=== PATIENT | female | born 1935 | race Hispanic/Latino ===

== ENCOUNTER 2018-12-08 16:11 | Inpatient (IN) | payer OTHER, BC ==
--- OUTSIDE RECORDS SUMMARY | 2018-12-08 16:13 | XMS REPORT ---
:1935 Author Organization eClinicalWorks Care Team Providers Name Role Phone Ana Frank Provider Role Unavailable Allergies, Adverse Reactions, Alerts Substance Reaction Event Type N.K.D.A. Info Not Available Non Drug Allergy Problems Problem Type Condition Code Onset Dates Condition Status Assessment Encounter for diagnostic R19.4 Active colonoscopy due to change in bowel habits Problem Back pain M54.9 Active Assessment Weight loss R63.4 Active Problem Pericardial effusion I31.9 Active Assessment Positive colorectal cancer R19.5 Active screening using Cologuard test Problem HTN (hypertension) I10 Active Problem Allergic rhinitis J30.9 Active Problem Hypothyroidism E03.9 Active Problem Positive colorectal cancer R19.5 Active screening using Cologuard test Problem Chronic obstructive pulmonary J44.9 Active disease, unspecified COPD type Assessment Personal history of other malignant Z85.118 Active neoplasm of bronchus and lung Assessment Lower extremity edema R60.0 Active Problem Lower extremity edema R60.0 Active Assessment Chronic obstructive pulmonary J44.9 Active disease, unspecified COPD type Problem Osteoporosis, unspecified M81.0 Active osteoporosis type, unspecified pathological fracture presence Problem Hyperlipidemia E78.5 Active Problem Microscopic hematuria R31.2 Active Problem Personal history of other malignant Z85.118 Active neoplasm of bronchus and lung Assessment Hypothyroidism E03.9 Active Assessment Hyperlipidemia E78.5 Active Assessment Osteoporosis, unspecified M81.0 Active osteoporosis type, unspecified pathological fracture presence Assessment Allergic rhinitis J30.9 Active Problem Cataract H26.9 Active Problem Encounter for screening colonoscopy Z12.11 Active Assessment HTN (hypertension) I10 Active Medications Medication Code Code Instructions Start End Status Dosage System Date Date Claritin [facility] 74599794546 10 MG Orally Active 1 tablet Once a day ProAir HFA [facility] 48654857211 108 (90 Base) Active 2 puffs as MCG/ACT needed Inhalation every 6 hrs Allopurinol ND 20001236324 100 MG Orally Active 1 tablet Once a day Albuterol Sulfate [facility] 64790377285 (2.5 MG/3ML) Active 3 ml as 0.083% needed Inhalation Three times a day Rosuvastatin [facility] 49015058474 5 Active TAKE 1 Calcium TABLET BY MOUTH DAILY Amlodipine [facility] 23617742793 10 MG Active TAKE 1 Besylate TABLET BY MOUTH EVERY DAY Travatan Z [facility] 29815886581 0.004 % Active 1 drop Ophthalmic Once into a day affected eye in the evening Fosamax [facility] 13240736019 70 MG Orally Active 1 tablet Synthroid [facility] 57609945717 50 MCG Orally Active 1 tablet Once a day on an empty stomach in the morning Spiriva [facility] 73408679377 18 MCG Active 1 capsule HandiHaler Inhalation Once a day Metoprolol [facility] 91527988914 25 MG Orally Active 1/2 tablet Tartrate Twice a day with food Spironolactone [facility] 66946272792 25 MG Orally Active 1 tablet Once a day with food Lasix [facility] 91087391353 20 MG Orally Active 1 tablet Once a day Results No Known Results Summary Purpose eClinicalWorks Submission
--- OUTSIDE RECORDS SUMMARY | 2018-12-08 16:13 | XMS REPORT ---
:1935 Author Organization [employer]ClinicalWorks Care Team Providers Name Role Phone Frank, Na Provider Role Unavailable Allergies No Known Allergies Problems Problem Type Condition Code Onset Dates Condition Status Problem HTN (hypertension) I10 Active Problem Allergic rhinitis J30.9 Active Problem Hypothyroidism E03.9 Active Problem Cataract H26.9 Active Problem Encounter for screening colonoscopy Z12.11 Active Problem Back pain M54.9 Active Problem Pericardial effusion I31.9 Active Problem Positive colorectal cancer R19.5 Active screening using Cologuard test Problem Chronic obstructive pulmonary J44.9 Active disease, unspecified COPD type Problem Lower extremity edema R60.0 Active Problem Osteoporosis, unspecified M81.0 Active osteoporosis type, unspecified pathological fracture presence Problem Hyperlipidemia E78.5 Active Problem Microscopic hematuria R31.2 Active Problem Personal history of other malignant Z85.118 Active neoplasm of bronchus and lung Medications Medication Code System Code Instructions Start End Date Status Dosage Date Benzonatate [facility] 33789617512 200 MG Orally Nov 05, Active 1 capsule Three times a 2017 day Results No Known Results Summary Purpose eClinicalWorks Submission
--- OUTSIDE RECORDS SUMMARY | 2018-12-08 16:13 | XMS REPORT ---
:1935 Author Organization [employer]ClinicalWorks Care Team Providers Name Role Phone Frank, Na Provider Role Unavailable Allergies, Adverse Reactions, Alerts Substance Reaction Event Type N.K.D.A. Info Not Available Non Drug Allergy Problems Problem Type Condition Code Onset Dates Condition Status Problem Microscopic hematuria R31.2 Active Problem Cataract H26.9 Active Problem Chronic obstructive pulmonary J44.9 Active disease, unspecified COPD type Problem Allergic rhinitis J30.9 Active Assessment Chronic obstructive pulmonary J44.9 Active disease, unspecified COPD type Problem Hypothyroidism E03.9 Active Problem Hyperlipidemia E78.5 Active Problem Back pain M54.9 Active Problem Encounter for screening colonoscopy Z12.11 Active Problem HTN (hypertension) I10 Active Problem Pericardial effusion I31.9 Active Assessment Personal history of other malignant Z85.118 Active neoplasm of bronchus and lung Assessment Osteoporosis, unspecified M81.0 Active osteoporosis type, unspecified pathological fracture presence Assessment Lower extremity edema R60.0 Active Assessment Encounter for screening colonoscopy Z12.11 Active Assessment Hyperlipidemia E78.5 Active Assessment HTN (hypertension) I10 Active Assessment Allergic rhinitis J30.9 Active Problem Osteoporosis, unspecified M81.0 Active osteoporosis type, unspecified pathological fracture presence Assessment Hypothyroidism E03.9 Active Problem Personal history of other malignant Z85.118 Active neoplasm of bronchus and lung Medications Medication Code Code Instructions Start End Status Dosage System Date Date Spironolactone ND 94122633480 25 MG Orally Active 1 tablet Once a day with food ProAir HFA ND 93294098828 108 (90 Base) Active 2 puffs as MCG/ACT needed Inhalation every 6 hrs Metoprolol ND 00668889774 25 MG Orally Active 1/2 tablet Tartrate Twice a day with food Albuterol Sulfate ND 42637065996 (2.5 MG/3ML) Active 3 ml as 0.083% needed Inhalation Three times a day Spiriva ND 11704436981 18 MCG April Active 1 capsule HandiHaler Inhalation Once 07, a day 2018 Travatan Z [facility]NOTE 3] 20889617066 0.004 % Active 1 drop Ophthalmic Once into a day affected eye in the evening Synthroid [facility][NOTE 3] 37207652785 50 MCG Orally Active 1 tablet Once a day on an empty stomach in the morning Rosuvastatin [facility][NOTE 3] 84615854592 5 Active TAKE 1 Calcium TABLET BY MOUTH DAILY Claritin [facility][NOTE 3] 09747814216 10 MG Orally Active 1 tablet Once a day Amlodipine [facility][NOTE 3] 40669291565 10 MG Active TAKE 1 Besylate TABLET BY MOUTH EVERY DAY Lasix [facility][NOTE 3] 68118543505 20 MG Orally Active 1 tablet Once a day Allopurinol [facility][NOTE 3] 03603006105 100 MG Orally Active 1 tablet Once a day Fosamax [facility][NOTE 3] 75536684661 70 MG Orally Oct 31, Active 1 tablet 2017 Results No Known Results Summary Purpose eClinicalWorks Submission
--- OUTSIDE RECORDS SUMMARY | 2018-12-08 16:14 | XMS REPORT ---
[...] Active neoplasm of bronchus and lung Medications No Known Medications Results No Known Results Summary Purpose eClinicalWorks Submission
--- OUTSIDE RECORDS SUMMARY | 2018-12-08 16:14 | XMS REPORT ---
:1935 [facility] Address [address] [place] [address] [address] [place] [address] Care Team Providers Name Role Phone Unavailable Unavailable Unavailable Problems This patient has no known problems. Allergies, Adverse Reactions, Alerts This patient has no known allergies or adverse reactions. Medications This patient has no known medications.
--- OUTSIDE RECORDS SUMMARY | 2018-12-08 16:14 | XMS REPORT ---
[...] cancer R19.5 Active screening using Cologuard test Assessment Personal history of other malignant Z85.118 Active neoplasm of bronchus and lung Problem Chronic obstructive pulmonary J44.9 Active disease, unspecified COPD type Assessment Lower extremity edema R60.0 Active Assessment Chronic [...] Encounter for screening colonoscopy Z12.11 Active Assessment Weight loss R63.4 Active Assessment HTN (hypertension) I10 Active Problem Back pain M54.9 Active Assessment Positive colorectal cancer R19.5 Active screening using Cologuard test Problem Pericardial effusion I31.9 Active Medications Medication Code Code Instructions Start End Status Dosage System Date Date Synthroid [facility] 88885383122 50 MCG Orally Active 1 tablet Once a day on an empty stomach in the morning Metoprolol ND 98348122650 25 MG Orally Active 1/2 tablet Tartrate Twice a day with food Allopurinol ND 96519659969 100 MG Orally Active 1 tablet Once a day Spironolactone [facility] 90688039585 25 MG Orally Active 1 tablet Once a day with food Lasix [facility] 61187592735 20 MG Orally Active 1 tablet Once a day Rosuvastatin [facility] 77005697152 5 Active TAKE 1 Calcium TABLET BY MOUTH DAILY Claritin [facility] 84129966238 10 MG Orally Active 1 tablet Once a day ProAir HFA [facility] 94237316698 108 (90 Base) Active 2 puffs as MCG/ACT needed Inhalation every 6 hrs Albuterol Sulfate [facility] 59315914113 (2.5 MG/3ML) Active 3 ml as 0.083% needed Inhalation Three times a day Travatan Z [facility] 55482759249 0.004 % Active 1 drop Ophthalmic Once into a day affected eye in the evening Spiriva [facility] 27782241485 18 MCG Oct 08, Active 1 capsule HandiHaler Inhalation Once 2019 a day Amlodipine [facility] 08619086595 10 MG Active TAKE 1 Besylate TABLET BY MOUTH EVERY DAY Spiriva [facility] 71452948661 18 MCG Active 1 capsule HandiHaler Inhalation Once a day Fosamax [facility] 93555595940 70 MG Orally April 11, Active 1 tablet once a week 2018 Results No Known Results Summary Purpose eClinicalWorks Submission
[2018-12-08 16:41] LABS: Absolute Lymphocytes (CBC) 0.7 K/uL (0.7-4.9); Absolute Monocytes 0.2 K/uL (0.1-1.3); Absolute Neutrophil 19.3 K/uL (1.8-8.0); Basophils % 0.1 % (0-1.3); Hematocrit 45.3 % (36.0-45.0); Lymphocytes % 3.6 % (15.3-44.8); MPV 8.8 fL (7.6-11.3); Monocytes % 0.8 % (3.3-12.3); RBC Red Blood Cell Count 4.91 M/uL (3.86-4.86)
[2018-12-08] MEDS ORDERED: LEVALBUTEROL 1.25 MG/3 ML NEB ONE (16:44)
[2018-12-08] MEDS ORDERED: METHYLPREDNISOLONE 125 MG INJ ONE (16:44)
[2018-12-08] MEDS ORDERED: MAGNESIUM SULFATE 1 gm IVPB 1 GM/100 ML BAG IV ONE (16:44)
[2018-12-08] MEDS ORDERED: NA CHLORIDE 0.9% 250 ML ONE (16:53)
--- NOTE | 2018-12-08 17:09 | RAD REPORT ---
EXAM DESCRIPTION: Saul Single View12/08/2018 4:43 pm CLINICAL HISTORY: Shortness of breath COMPARISON: none FINDINGS: Complete opacification of the right hemithorax is seen. The trachea is deviated towards th e right. Appears to be a mildly prominent reticulonodular pattern within the left lung. Left lower lobe bronch iectasis may be present. IMPRESSION: Complete opacification of the right hemithorax. If the patient has had a right pneumonec dillon then this would be the expected appearance. If the patient has not had a pneumonectomy then this represents complete right lung atelectasis. Mildly prominent reticulonodular pattern within the left lung may indicate an atypical infection, pne umonitis or chronic changes. Left lower lobe bronchiectasis may be present
[2018-12-08] MEDS ORDERED: PIPER/TAZO/NS 3.375gm 3.375 GM/100 ML BAG ONE (17:23)
[2018-12-08] MEDS ORDERED: VANCOMYCIN 1 GM/250 ML BAG ONE (17:23)
[2018-12-08 17:36] LABS: Potassium 5.1 mmol/L (3.5-5.1); Troponin (Emerg Dept Use Only) 0.04 ng/mL (0.0-0.045)
--- NOTE | 2018-12-08 17:45 | EDPHYS ---
Physician Documentation [facility] Name: Monica Alva Age: 83 yrs Sex: Female : 1935 Arrival Date: 12/08/2018 Time: 16:16 Bed 4 Private MD: Dr TIMMY Busby Physician Virgil Roach HPI: 12/08 16:19 This 83 yrs old Female presents to ER via Unassigned with complaints of rn dyspnea. 16:19 The patient has shortness of breath at rest. Onset: The symptoms/episode began/occurred rn at an unknown time. Duration: The symptoms are continuous. The patient's shortness of breath is aggravated by coughing, exertion, light activity, talking. Severity of symptoms: At their worst the symptoms were moderate in the emergency department the symptoms are unchanged. The patient has experienced similar episodes in the past. Reports recently [facility] and then sent to [facility], for SOB, unsure her diagnosis, but thinks pneumonia, returned to jail and reports increased sob that began this morning. NO feer. + increased cough. . Historical: - Allergies: 17:01 No Known Allergies; sg - Home Meds: 17:01 alendronate 70 mg oral tab 1 tab once wkly [Active]; allopurinol 100 mg Oral tab 1 tab sg 2 times per day [Active]; amlodipine 10 mg tab 1 tab once daily [Active]; aspirin 81 mg Oral chew 1 tab once daily [Active]; Ativan 0.5 mg Oral tab 1 tab 1 PER DAY [Active]; atorvastatin 10 mg oral tab 1 tab once daily [Active]; Brovana 15 mcg/2 mL inhalation nebu 2 mL every 6 hours [Active]; ferrous sulfate 325 mg (65 mg iron) Oral tab daily [Active]; furosemide 20 mg Oral tab 1 tab once daily [Active]; guaifenesin 100 mg/5 mL Oral liqd 10 mL every 4 hours [Active]; ipratropium-albuterol 0.5 mg-3 mg(2.5 mg base)/3 mL Inhl nebu 3 mL 4 times per day [Active]; levothyroxine 25 mcg tab 1 tab once daily [Active]; metoprolol tartrate 25 mg Oral tab 0.5 tabs once daily [Active]; prednisone 20 mg Oral tab 2 tabs once daily [Active]; spironolactone 25 mg Oral tab 1 tab once daily [Active]; tiotropium bromide inhalation inhalation 2 puffs once daily for Bronchospasm Prevention with COPD [Active]; travoprost (benzalkonium) 0.004 % ophthalmic drop 1 drop once daily for Open Angle Glaucoma [Active]; - PMHx: 17:01 Hypothyroidism; Hypertension; Hyperlipidemia; CHF; Pneumonia; sg 17:04 CKD Stage III; Gout; sg - PSHx: 17:04 Pneumonectomy- Right; sg - Immunization history:: Adult Immunizations not up to date. - Social history:: Smoking status: Patient/guardian denies using tobacco. - Family history:: not pertinent. - Ebola Screening: : No symptoms or risks identified at this time. - Hospitalizations: : No recent hospitalization is reported. ROS: 16:19 Constitutional: Negative for fever, chills, and weight loss, Eyes: Negative for injury, rn pain, redness, and discharge, Neck: Negative for injury, pain, and swelling, Cardiovascular: Negative for chest pain, palpitations, and edema, Respiratory: + sob and cough Abdomen/GI: Negative for abdominal pain, nausea, vomiting, diarrhea, and constipation, MS/Extremity: Negative for injury and deformity, Skin: Negative for injury, rash, and discoloration, Neuro: + generalized weakness Exam: 16:19 Constitutional: This is a well developed, well nourished patient who is awake, alert, rn + moderate respiratory distress Head/Face: Normocephalic, atraumatic. ENT: Dry MM, no stridor Cardiovascular: regular, tachycardic, no murmur Respiratory: + modertae tachypnea with crackles, absent breath sounds right lung shetty, + faint wheezing, + retractions and speaking 3 word sentences Abdomen/GI: soft, non-tender MS/ Extremity: Pulses equal, no cyanosis. Neurovascular intact. Full, normal range of motion. Equal circumference. Neuro: Awake and alert, GCS 15, oriented to person, place, time, and situation. Cranial nerves II-XII grossly intact. Motor strength 5/5 in all extremities. Sensory grossly intact. Vital Signs: 16:28 BP 113 / 82; Pulse 148; Resp 37; Pulse Ox 78% on R/A; sg 16:30 Pulse Ox 99% on 50% BiPAP; sg 16:49 Temp 97.8(A); sv 16:58 BP 131 / 88; Pulse 138; Resp 31; Pulse Ox 100% on 50% BiPAP; sv 17:21 BP 138 / 73; Pulse 135; Resp 35; Pulse Ox 100% on 50% BiPAP; sv 18:11 BP 135 / 68; Pulse 121; Resp 32; Pulse Ox 100% on 50% BiPAP; sv 18:30 BP 119 / 97; Pulse 117; Resp 33; Pulse Ox 98% on 50% BiPAP; sv 19:27 BP 149 / 76; Pulse 112; Resp 30; Pulse Ox 99% on 50% BiPAP; ea 20:56 BP 146 / 74; Pulse 102; Resp 25; Pulse Ox 99% on 50% BiPAP; ea 21:47 BP 146 / 77; Pulse 108; Resp 30; Temp 97.8; Pulse Ox 99% ; ea MDM: 16:16 Patient medically screened. rn 17:21 ED course: family reports DNR/DNI, patient taken off bipap briefly and confirms. . rn 17:40 Differential diagnosis: asthma, Bronchitis CHF exacerbation, Myocardial Infarction rn pneumonia, Pneumothorax pulmonary edema, reactive airway disease. Data reviewed: vital signs, nurses notes, lab test result(s), EKG, radiologic studies, plain films, and as a result, I will admit patient. Counseling: I had a detailed discussion with the patient and/or guardian regarding: the historical points, exam findings, and any diagnostic results supporting the discharge/admit diagnosis, lab results, radiology results, the need for further work-up and treatment in the hospital. 18:37 ED course: Pt and family both confirm once again is DNR/DNI.. rn 12/08 16:18 Order name: Blood Culture Adult (2) rn 12/08 16:18 Order name: CBC with Diff; Complete Time: 19:06 rn 12/08 16:34 Order name: Procalcitonin; Complete Time: 17:48 rn 12/08 16:18 Order name: XRAY CXR (1 view); Complete Time: 17:22 rn 12/08 16:18 Order name: BIPAP rn 12/08 16:34 Order name: Lactate; Complete Time: 17:22 rn 12/08 16:57 Order name: Basic Metabolic Panel; Complete Time: 17:48 EDMS 12/08 16:57 Order name: Troponin (Emerg Dept Use Only); Complete Time: 17:48 EDMS 12/08 16:57 Order name: NT PRO-BNP; Complete Time: 17:48 EDMS 12/08 17:02 Order name: Manual Differential; Complete Time: 19:06 EDMS 12/08 21:09 Order name: Lactate Sepsis 2 HR Follow-up EDMS 12/08 16:18 Order name: EKG; Complete Time: 16:21 rn 12/08 16:18 Order name: Cardiac monitoring; Complete Time: 16:46 rn 12/08 16:18 Order name: EKG - Nurse/Tech; Complete Time: 16:47 rn 12/08 16:18 Order name: IV Saline Lock; Complete Time: 16:47 rn 12/08 16:18 Order name: Labs collected and sent; Complete Time: 16:47 rn 12/08 16:18 Order name: O2 Per Protocol; Complete Time: 16:47 rn 12/08 16:18 Order name: O2 Sat Monitoring; Complete Time: 16:47 rn 12/08 18:46 Order name: CONS Physician Consult EDMS Administered Medications: 16:44 Drug: SOLU-Medrol 125 mg Route: IVP; Site: left forearm; sv 17:01 Follow up: Response: No adverse reaction sv 16:45 Drug: NS 0.9% 250 ml Route: IV; Rate: 1 bolus; Site: left forearm; sv 17:21 Follow up: Response: No adverse reaction; IV Status: Completed infusion; IV Intake: sv 250ml 16:46 Drug: Xopenex (3) 1.25 mg Route: Inhalation; sv 16:46 Drug: Magnesium Sulfate 1 grams Route: IVPB; Infused Over: 1 hrs; Site: left forearm; sv 17:45 Follow up: Response: No adverse reaction; IV Status: Completed infusion; IV Intake: sv 100ml 17:21 Drug: Zosyn 3.375 grams Route: IVPB; Infused Over: 60 mins; Site: left forearm; sv 18:21 Follow up: Response: No adverse reaction; IV Status: Completed infusion; IV Intake: sv 100ml 18:22 Drug: vancoMYCIN 1 grams Route: IVPB; Infused Over: 2 hrs; Site: left forearm; sv 20:30 Follow up: Response: No adverse reaction; IV Status: Completed infusion; IV Intake: ea 250ml Point of Care Testing: Blood Glucose: 16:28 Blood Glucose: 298 mg/dL; sg Ranges: Critical Glucose Levels:Adult <50 mg/dl or >400 mg/dl <40 mg/dl or >180 mg/dl Disposition: 17:43 Critical Care:. rn Disposition: 12/08/18 17:44 Hospitalization ordered by Lacy Shin for Inpatient Admission. Preliminary diagnosis are Dehydration, Dyspnea, unspecified, Hypoxemia, Pneumonitis. - Bed requested for Intensive Care Unit. - Status is Inpatient Admission. ea - Condition is Fair. - Problem is new. - Symptoms have improved. UTI on Admission? No Critical care time excluding procedures: 17:43 Critical care time: Bedside Care: 25 minutes, Consultation: 4 minutes, Family rn Intervention: 5 minutes. Total time: 34 minutes Signatures: Dispatcher [employer] EDMS Melida Tierney RN Anthony Tamez RN RN sg Nieto, Roman, MD MD rn Garcia, Cindy, RN RN cg Antunez, Elena, RN RN ea Corrections: (The following items were deleted from the chart) 16:57 16:20 BASIC METABOLIC PANEL+C.LAB.BRZ ordered. EDVT EDMS 16:57 16:20 PROBNP+C.LAB.BRZ ordered. EDVT EDMS 16:57 16:20 TROPONIN (EMERG DEPT USE ONLY)+C.LAB.BRZ ordered. EDVT EDMS 17:04 17:01 PSHx: Unable to obtain; sg sg 20:17 17:44 Hospitalization Ordered by Lacy Shin MD for Inpatient Admission. Preliminary cg diagnosis is Dehydration; Dyspnea, unspecified; Hypoxemia; Pneumonitis. Bed requested for Intensive Care Unit. Status is Inpatient Admission. Condition is Fair. Problem is new. Symptoms have improved. UTI on Admission? No. rn 22:33 20:17 12/08/2018 17:44 Hospitalization Ordered by Lacy Shin MD for Inpatient ea Admission. Preliminary diagnosis is Dehydration; Dyspnea, unspecified; Hypoxemia; Pneumonitis. Bed requested for Intensive Care Unit. Status is Inpatient Admission. Condition is Fair. Problem is new. Symptoms have improved. UTI on Admission? No. cg
--- NOTE | 2018-12-08 17:45 | ER ---
Nurse's Notes [facility] Name: Monica Alva Age: 83 yrs Sex: Female : 1935 Arrival Date: 12/08/2018 Time: 16:16 Bed 4 Private MD: Dr Kehinde Diagnosis: Dehydration;Dyspnea, unspecified;Hypoxemia;Pneumonitis Presentation: 12/08 16:09 Presenting complaint: EMS states: pt is a new resident at [facility], [facility] staff reports the pt sv was recently DC to their facility from [facility] for treatment and discharge diagnosis of pneumonia, pt reports that she has been very short of breath today, worsening ARMATURE CONNECTOR, EMS reports o2 saturation in the 90's, pt placed to o2 via [facility] at 4 lpm that increased the o2 saturation to 89 %, RR noted to be elevated on EMS stretcher about 40 bpm RR. Duoneb was given at the [facility]. 16:44 Transition of care: patient was received from another setting of care (long-term care facility), [facility]. Onset of symptoms was December 08, 2018. Risk Assessment: Do you want to hurt yourself or someone else? Patient reports no desire to harm self or others. Initial Sepsis Screen: Does the patient meet any 2 criteria? RR > 20 per min. HR > 90 bpm. Does the patient have a suspected source of infection? Yes: Productive cough/pneumonia. Care prior to arrival: None. 16:44 Acuity: KERWIN 2 16:44 Method Of Arrival: EMS: [facility] Triage Assessment: 16:15 General: Appears distressed, uncomfortable, slender, Behavior is cooperative. Pain: sv Denies pain. Neuro: Level of Consciousness is awake, alert, obeys commands, Oriented to person, place, time, situation, Moves all extremities. Speech runs out of breath easily. Respiratory: Reports shortness of breath at rest on exertion labored breathing Airway is patent Respiratory effort is even, labored, with retractions, Respiratory pattern is tachypnea Breath sounds with crackles in left posterior upper lobe and left posterior lower lobe Breath sounds are absent in right posterior upper lobe, right posterior middle lobe and right posterior lower lobe. Derm: Skin is normal. Historical: - Allergies: 17:01 No Known Allergies; sg - Home Meds: 17:01 alendronate 70 mg oral tab 1 tab once wkly [Active]; allopurinol 100 mg Oral tab 1 tab sg 2 times per day [Active]; amlodipine 10 mg tab 1 tab once daily [Active]; aspirin 81 mg Oral chew 1 tab once daily [Active]; Ativan 0.5 mg Oral tab 1 tab 1 PER DAY [Active]; atorvastatin 10 mg oral tab 1 tab once daily [Active]; Brovana 15 mcg/2 mL inhalation nebu 2 mL every 6 hours [Active]; ferrous sulfate 325 mg (65 mg iron) Oral tab daily [Active]; furosemide 20 mg Oral tab 1 tab once daily [Active]; guaifenesin 100 mg/5 mL Oral liqd 10 mL every 4 hours [Active]; ipratropium-albuterol 0.5 mg-3 mg(2.5 mg base)/3 mL Inhl nebu 3 mL 4 times per day [Active]; levothyroxine 25 mcg tab 1 tab once daily [Active]; metoprolol tartrate 25 mg Oral tab 0.5 tabs once daily [Active]; prednisone 20 mg Oral tab 2 tabs once daily [Active]; spironolactone 25 mg Oral tab 1 tab once daily [Active]; tiotropium bromide inhalation inhalation 2 puffs once daily for Bronchospasm Prevention with COPD [Active]; travoprost (benzalkonium) 0.004 % ophthalmic drop 1 drop once daily for Open Angle Glaucoma [Active]; - PMHx: 17:01 Hypothyroidism; Hypertension; Hyperlipidemia; CHF; Pneumonia; sg 17:04 CKD Stage III; Gout; sg - PSHx: 17:04 Pneumonectomy- Right; sg - Immunization history:: Adult Immunizations not up to date. - Social history:: Smoking status: Patient/guardian denies using tobacco. - Family history:: not pertinent. - Ebola Screening: : No symptoms or risks identified at this time. - Hospitalizations: : No recent hospitalization is reported. Screenin:56 Abuse screen: Denies threats or abuse. Denies injuries from another. Nutritional sv screening: No deficits noted. Tuberculosis screening: No symptoms or risk factors identified. Fall Risk No fall in past 12 months (0 pts). No secondary diagnosis (0 pts). IV access (20 points). Ambulatory Aid- None/Bed Rest/Nurse Assist (0 pts). Gait- Normal/Bed Rest/Wheelchair (0 pts) Mental Status- Oriented to own ability (0 pts). Total Ruiz Fall Scale indicates No Risk (0-24 pts). Assessment: 16:20 Reassessment: Pt placed on BIPAP by Megan SWATCH CUTTER. sv 17:20 Reassessment: Patient appears in no apparent distress at this time. Patient and/or sv family updated on plan of care and expected duration. Pain level reassessed. Patient is alert, oriented x 3, equal unlabored respirations, skin warm/dry/pink. SOB has improved some. Respiratory: Respiratory effort is even, unlabored, Respiratory pattern is tachypnea. 19:23 General: Appears in no apparent distress. slender. General: Behavior is calm. Pain: ea Denies pain. Neuro: Level of Consciousness is awake, alert, obeys commands, Oriented to person, place, time. Cardiovascular: Heart tones S1 S2 present Patient's skin is warm and dry. Respiratory: Respiratory effort is unlabored, Respiratory pattern is tachypnea Patient currently on BIPAP, tolerating well. GI: Abdomen is non-distended, Bowel sounds present X 4 quads. Derm: Skin is dry, Skin is pale, Skin temperature is warm. 20:52 Reassessment: Patient and/or family updated on plan of care and expected duration. Pain ea level reassessed. Pt remains on BIPAP, tolerating well. 21:20 Reassessment: Patient and/or family updated on plan of care and expected duration. Pain ea level reassessed. Report called to Dacia GRAHAM at ICU. 22:12 Reassessment: Patient and/or family updated on plan of care and expected duration. Pain ea level reassessed. Pt remains on BIPAP, pt tolerated well, awaiting on respiratory for assistance. Family remains at bedside. Vital Signs: 16:28 BP 113 / 82; Pulse 148; Resp 37; Pulse Ox 78% on R/A; sg 16:30 Pulse Ox 99% on 50% BiPAP; sg 16:49 Temp 97.8(A); sv 16:58 BP 131 / 88; Pulse 138; Resp 31; Pulse Ox 100% on 50% BiPAP; sv 17:21 BP 138 / 73; Pulse 135; Resp 35; Pulse Ox 100% on 50% BiPAP; sv 18:11 BP 135 / 68; Pulse 121; Resp 32; Pulse Ox 100% on 50% BiPAP; sv 18:30 BP 119 / 97; Pulse 117; Resp 33; Pulse Ox 98% on 50% BiPAP; sv 19:27 BP 149 / 76; Pulse 112; Resp 30; Pulse Ox 99% on 50% BiPAP; ea 20:56 BP 146 / 74; Pulse 102; Resp 25; Pulse Ox 99% on 50% BiPAP; ea 21:47 BP 146 / 77; Pulse 108; Resp 30; Temp 97.8; Pulse Ox 99% ; ea Vitals: 16:30 Cardiac Rhythm Assessment Sinus tach. sg ED Course: 16:15 Initial lab(s) drawn, by ED staff, sent to lab. First set of blood cultures drawn by ED sg staff. Inserted saline lock: 20 gauge in left forearm, using aseptic technique. Blood collected. 16:15 Arm band placed on. sg 16:15 Patient has correct armband on for positive identification. Placed in gown. Bed in low sv position. Side rails up X2. bus driver/monitor on. Pulse ox on. NIBP on. Head of bed elevated. 16:16 Patient arrived in ED. sv 16:16 Virgil Roach MD is Attending Physician. rn 16:30 Second set of blood cultures drawn by ED staff. a procal and lactate has been sent, sg notified lab a patient order is in the computer but a label did not print, lab ok at this time. 16:31 Meilda Tierney RN is Primary Nurse. sv 16:37 EKG done, by photo equipment technician. reviewed by Virgil Roach MD. sm3 16:40 X-ray completed. Portable x-ray completed in exam room. Patient tolerated procedure mh1 well. 16:41 XRAY CXR (1 view) In Process Unspecified. EDMS 16:47 BIPAP Sent. sv 16:49 Triage completed. sg 17:07 Dr Kehinde is Private Physician. ss 17:21 Manual Differential Sent. sv 17:44 Lacy Shin MD is Hospitalizing Provider. rn 19:02 Report given to Madhavi RN, Rae RN, Sirena RN. sv 19:04 Primary Nurse role handed off by Melida Tierney, GLADYS sv 19:08 Madhavi Jacques, GLADYS is Primary Nurse. ea 20:52 No provider procedures requiring assistance completed. Patient admitted, IV remains in ea place. Administered Medications: 16:44 Drug: SOLU-Medrol 125 mg Route: IVP; Site: left forearm; sv 17:01 Follow up: Response: No adverse reaction sv 16:45 Drug: NS 0.9% 250 ml Route: IV; Rate: 1 bolus; Site: left forearm; sv 17:21 Follow up: Response: No adverse reaction; IV Status: Completed infusion; IV Intake: sv 250ml 16:46 Drug: Xopenex (3) 1.25 mg Route: Inhalation; sv 16:46 Drug: Magnesium Sulfate 1 grams Route: IVPB; Infused Over: 1 hrs; Site: left forearm; sv 17:45 Follow up: Response: No adverse reaction; IV Status: Completed infusion; IV Intake: sv 100ml 17:21 Drug: Zosyn 3.375 grams Route: IVPB; Infused Over: 60 mins; Site: left forearm; sv 18:21 Follow up: Response: No adverse reaction; IV Status: Completed infusion; IV Intake: sv 100ml 18:22 Drug: vancoMYCIN 1 grams Route: IVPB; Infused Over: 2 hrs; Site: left forearm; sv 20:30 Follow up: Response: No adverse reaction; IV Status: Completed infusion; IV Intake: ea 250ml Point of Care Testing: Blood Glucose: 16:28 Blood Glucose: 298 mg/dL; sg Ranges: Intake: 17:21 IV: 250ml; Total: 250ml. sv 17:45 IV: 100ml; Total: 350ml. sv 18:21 IV: 100ml; Total: 450ml. sv 20:30 IV: 250ml; Total: 700ml. ea Outcome: 17:44 Decision to Hospitalize by Provider. rn 20:52 Instructed on the need for admit. ea 21:48 Condition: stable ea 21:48 Admitted to ICU accompanied by nurse, room 3, with oxygen, on monitor, with chart, ea Report called to Dacia GRAHAM 22:33 Patient left the ED. ea Signatures: Dispatcher [employer] EDMelida Escudero RN RN sv Gay, Steven, RN RN sg Harvey, Martha 1 Virgil Roach MD MD rn Smirch, Shelby, RN RN ss Antunez, Elena, RN RN ea Montes, Shakira 3 Corrections: (The following items were deleted from the chart) 16:55 16:44 Presenting complaint: EMS states: pt is a [facility] at [facility], [facility] staff reports sv the pt was recently DC to their facility from [facility] for treatment and discharge diagnosis of pneumonia, pt reports that she has been very short of breath today, worsening ARMATURE CONNECTOR, EMS reports o2 saturation in the 70's, pt placed to o2 via [facility] at 4 lpm that increased the o2 saturation to 89 %, RR noted to be elevated on EMS stretcher about 40 bpm RR sg 16:56 16:09 Presenting complaint: EMS states: pt is a new resident at [facility], [facility] staff reports sv the pt was recently DC to their facility from [facility] for treatment and discharge diagnosis of pneumonia, pt reports that she has been very short of breath today, worsening ARMATURE CONNECTOR, EMS reports o2 saturation in the 70's, pt placed to o2 via [facility] at 4 lpm that increased the o2 saturation to 89 %, RR noted to be elevated on EMS stretcher about 40 bpm RR sv 17:04 17:01 PSHx: Unable to obtain; sg sg 20:57 19:27 BP 149 / 76; Pulse 112bpm; Resp 30bpm; Pulse Ox 99% BiPAP; ea ea
[2018-12-08 18:58] LABS: Blood Morphology Comment NOT SEEN (NOT SEEN); Platelet Estimate INCR; Platelets, Giant PRESENT
--- NOTE | 2018-12-08 21:01 | P.HP ---
Certification for Inpatient Patient admitted to: Inpatient With expected LOS: >2 Midnights Practitioner: I am a practitioner with admitting privileges, knowledge of patient current condition, hospital course, and medical plan of care. Services: Services provided to patient in accordance with Admission requirements found in Title 42 Section 412.3 of the Code of Federal Regulations Patient History Date of Service: 12/09/18 Reason for admission: Respiratory distress History of Present Illness: This is an 83-year-old female admitted for respiratory distress. Patient was recently at [facility] for similar issues, she was given breathing treatments antibiotics with IV and then was discharged to long term include. She continued to receive breathing treatments and on the day of admission, breathing treatments did not help and her breathing got worse and she was sent to the ER from the long term. Patient has a history of a right pneumonectomy for cancer. Patient and family unsure of what type of cancer as this was a long time ago. In the ER the patient received supplemental oxygen, breathing treatments, IV steroids which helped her breathing and her oxygen saturation. At the time of my exam, her mentation had improved and she is satting 88-90% on 3 L and 91% on 4 L of oxygen by nasal cannula. Allergies No Known Allergies Allergy (Verified 12/08/18 18:16) Home Medications: Alendronate Sodium 70 mg PO EVERY 7TH DAY 12/08/18 Allopurinol 200 mg PO DAILY 12/08/18 Amlodipine Besylate 10 mg PO DAILY 12/08/18 Arformoterol Tartrate [Brovana] 15 mcg IH BID 12/08/18 Aspirin Chewable [Aspirin Chewable*] 81 mg PO DAILY 12/08/18 Atorvastatin Calcium 10 mg PO BEDTIME 12/08/18 Ferrous Sulfate [Ferrous Sulfate*] 325 mg PO DAILY 12/08/18 Furosemide [Lasix] 20 mg PO DAILY 12/08/18 Guaifenesin [Cough Syrup] 10 ml PO Q4HP PRN 12/08/18 Ipratropium/Albuterol Sulfate [Iprat-Albut 0.5-3(2.5) mg/3 ml] 1 dose IH Q6H LORazepam [Ativan*] 0.5 mg PO DAILY 12/08/18 Levothyroxine Sodium 25 mcg PO DAILY 12/08/18 Metoprolol Tartrate [Lopressor] 12.5 mg PO BID 12/08/18 Spironolactone [Aldactone*] 25 mg PO DAILY 12/08/18 Tiotropium [place] [Spiriva] 18 mcg IH DAILY 12/08/18 Travoprost (Benzalkonium) [Travatan 0.004% Eye Drop] 1 gtt EACH EYE BEDTIME predniSONE [Deltasone] 20 mg PO DAILY 12/08/18 - Past Medical/Surgical History -: History of pneumonectomy - Family History Father History Unknown: Yes Mother History Unknown: Yes Sister -: Hypertension, Diabetes Review of Systems 10-point ROS is otherwise unremarkable Physical Examination - Physical Exam General: In no apparent distress, Other (Sleepy, the more awake and alert than admission per granddaughter. Properly arousable and answers questions appropriately) HEENT: Atraumatic, PERRLA, Mucous membr. moist/pink, EOMI, Sclerae nonicteric Neck: Supple, 2+ carotid pulse no bruit, No LAD, Without JVD or thyroid abnormality Respiratory: Diminished, Crackles/rales Cardiovascular: Regular rate/rhythm, Normal S1 S2 Gastrointestinal: Normal bowel sounds, No tenderness Musculoskeletal: No tenderness Integumentary: No rashes Neurological: Normal gait, Normal speech, Normal strength at 5/5 x4 extr, Normal tone, Normal affect - Studies Laboratory Data (last 24 hrs) 12/08/18 17:05: Sodium 136, Potassium 5.1, BUN 35 H, Creatinine 1.55 H, Glucose 285 H 12/08/18 16:15: WBC 20.2 H* D, Hgb 14.9, Hct 45.3 H, Plt Count 475 H D 12/08/18 16:15: Sodium Cancelled, Potassium Cancelled, BUN Cancelled, Creatinine Cancelled, Glucose Cancelled Assessment and Plan - Problems (Diagnosis) (1) Acute respiratory distress Onset Date: 12/09/18 Current Visit: Yes Status: Acute (2) Hypercapnic respiratory failure Onset Date: 12/09/18 Current Visit: Yes Status: Acute (3) H/O pneumonectomy Current Visit: Yes Status: Acute (4) Sepsis Onset Date: 12/09/18 Current Visit: Yes Status: Acute Qualifiers: Sepsis type: sepsis due to unspecified organism Qualified Code(s): A41.9 - Sepsis, unspecified organism (5) Congestive heart failure (CHF) Current Visit: Yes Status: Acute Qualifiers: Heart failure type: unspecified Heart failure chronicity: chronic Qualified Code(s): I50.9 - Heart failure, unspecified (6) Pneumonia Current Visit: Yes Status: Acute Qualifiers: Pneumonia type: due to unspecified organism Laterality: left Lung location: unspecified part of lung Qualified Code(s): J18.9 - Pneumonia, unspecified organism - Plan Admit and monitor in ICU Breathing treatments and IV antibiotics for possible infectious pneumonia. Continue steroids, low dose. Continue Bi-pap. Patient is a DNI/DNR - this was confirmed with the patient by ER physician as well as me. Patient's son's at bedside also noted that patient did not want to be intubated. Overall, poor prognosis. Will consider discussing comfort care/hospice with patient and family. - Advance Directives Does patient have a Living Will: No Does patient have a Durable POA for Healthcare: No - Code Status/Comfort Care Code Status: Do Not Resuscitate
[2018-12-08] MEDS ORDERED: VANCOMYCIN 1.25 GM in NA CHLORIDE 0.9% 250 ML IVPB SCH (21:49)
[2018-12-08] MEDS: IPRATROPIUM BROM 0.5MG/2.5ML NEB SCH (21:49)
[2018-12-08 22:57] LABS: Absolute Lymphocytes (CBC) 0.4 K/uL (0.7-4.9); Absolute Monocytes 0.1 K/uL (0.1-1.3); Absolute Neutrophil 18.1 K/uL (1.8-8.0); Basophils % 0.1 % (0-1.3); Hematocrit 41.3 % (36.0-45.0); Lymphocytes % 1.9 % (15.3-44.8); MPV 8.3 fL (7.6-11.3); Monocytes % 0.6 % (3.3-12.3); RBC Red Blood Cell Count 4.55 M/uL (3.86-4.86)
[2018-12-08 23:07] VITALS: BMI 17.0
--- NOTE | 2018-12-08 23:12 | EKG ---
Test Date: 2018-12-08 Test Time: 16:26:04 Outdoor Studies Professor: LUZ MEASUREMENT RESULTS: Intervals: Rate: 146 TX: 126 QRSD: 70 QT: 272 QTc: 423 [place]: P: 62 TX: 126 QRS: 31 T: 86 INTERPRETIVE STATEMENTS: Sinus tachycardia Right atrial enlargement Voltage criteria for left ventricular hypertrophy ST & T wave abnormality, consider lateral ischemia Abnormal ECG No previous ECG available for comparison Electronically Signed On 12-08-18 23:11:59 SENIOR DIRECTOR OF [employer] by Louie Abdi
[2018-12-08 23:13] LABS: Albumin 2.9 g/dL (3.4-5.0); Bilirubin Total 0.4 mg/dL (0.2-1.0); Potassium 5.2 mmol/L (3.5-5.1); Protein, Total 6.6 g/dL (6.4-8.2)
[2018-12-09] MEDS ORDERED: NS IVPB SCH
[2018-12-09] MEDS ORDERED: PIPER IVPB SCH
[2018-12-09] MEDS ORDERED: TAZO IVPB SCH
[2018-12-09] MEDS ORDERED: PIPER/TAZO/NS 2.25gm 4.50 GM/100 ML BAG ONE (00:44)
[2018-12-09] MEDS: IPRATROPIUM BROM 0.5MG/2.5ML NEB SCH ×5 (04:00→20:27)
[2018-12-09 05:29] LABS: Absolute Lymphocytes (CBC) 0.6 K/uL (0.7-4.9); Absolute Monocytes 0.3 K/uL (0.1-1.3); Absolute Neutrophil 14.1 K/uL (1.8-8.0); Basophils % 0.1 % (0-1.3); Hematocrit 38.9 % (36.0-45.0); Lymphocytes % 3.8 % (15.3-44.8); MPV 8.1 fL (7.6-11.3); Monocytes % 1.7 % (3.3-12.3); RBC Red Blood Cell Count 4.24 M/uL (3.86-4.86)
[2018-12-09 05:48] LABS: Albumin 2.6 g/dL (3.4-5.0); Bilirubin Total 0.4 mg/dL (0.2-1.0); Phosphorus 4.3 mg/dL (2.5-4.9); Potassium 5.2 mmol/L (3.5-5.1); Protein, Total 6.1 g/dL (6.4-8.2)
[2018-12-09] MEDS ORDERED: PIPER/TAZO/NS 2.25gm 2.25 GM/50 ML BAG IV SCH ×2 (06:00→12:00)
[2018-12-09] MEDS: LEVOTHYROXINE SOD 0.025 MG TAB PO SCH (08:40)
[2018-12-09] MEDS: ENOXAPARIN 30 MG/0.3 ML SQ SCH (09:00)
[2018-12-09] MEDS: METHYLPREDNISOLONE 40 MG INJ IV SCH ×2 (09:26→17:04)
[2018-12-09] MEDS: PIPER/TAZO/NS 2.25gm 2.25 GM/50 ML BAG IV SCH ×2 (11:49→17:10)
--- NOTE | 2018-12-09 15:01 | P.CNS ---
Date of Consult: 12/09/18 Chief Complaint: Shortness of breath History of Present Illness: Patient is 83 years of age was recently admitted to our [facility] and in the ICU with discharge to halfway became more short of breath admitted from the emergency room to the ICU is currently on a BiPAP she does have a history of COPD and a right-sided pneumonectomy patient is tachypneic at rest elevated white count possible infection patient is compliant with the bronchodilators Allergies No Known Allergies Allergy (Verified 12/08/18 18:16) Home Medications: Alendronate Sodium 70 mg PO EVERY 7TH DAY 12/08/18 Allopurinol 200 mg PO DAILY 12/08/18 Amlodipine Besylate 10 mg PO DAILY 12/08/18 Arformoterol Tartrate [Brovana] 15 mcg IH BID 12/08/18 Aspirin Chewable [Aspirin Chewable*] 81 mg PO DAILY 12/08/18 Atorvastatin Calcium 10 mg PO BEDTIME 12/08/18 Ferrous Sulfate [Ferrous Sulfate*] 325 mg PO DAILY 12/08/18 Furosemide [Lasix] 20 mg PO DAILY 12/08/18 Guaifenesin [Cough Syrup] 10 ml PO Q4HP PRN 12/08/18 Ipratropium/Albuterol Sulfate [Iprat-Albut 0.5-3(2.5) mg/3 ml] 1 dose IH Q6H LORazepam [Ativan*] 0.5 mg PO DAILY 12/08/18 Levothyroxine Sodium 25 mcg PO DAILY 12/08/18 Metoprolol Tartrate [Lopressor] 12.5 mg PO BID 12/08/18 Spironolactone [Aldactone*] 25 mg PO DAILY 12/08/18 Tiotropium [place] [Spiriva] 18 mcg IH DAILY 12/08/18 Travoprost (Benzalkonium) [Travatan 0.004% Eye Drop] 1 gtt EACH EYE BEDTIME predniSONE [Deltasone] 20 mg PO DAILY 12/08/18 - Past Medical/Surgical History Diabetic: No -: Hypothyroid -: HTN -: Hyperlipidemia -: CHF -: Pneumonia -: CKD III -: Gout -: Lung CA -: Pneumonectomy R -: Hyst - Family History Father History Unknown: Yes Mother History Unknown: Yes Sister Medical History: Hypertension, Diabetes - Social History Alcohol use: No CD- Drugs: No Caffeine use: Yes Place of Residence: [facility] Review of Systems General: Weakness Respiratory: Cough, Shortness of Breath Neurological: Weakness Physical Examination Temp Pulse Resp BP Pulse Ox 97.2 F 102 H 33 H 148/74 H 98 12/09/18 04:00 12/09/18 14:00 12/09/18 14:00 12/09/18 14:00 12/09/18 14:00 General: Alert, Moderate distress HEENT: Atraumatic Neck: Supple Respiratory: Expiratory wheezes (Wheezing noted on the left side right lung diminished breath sounds secondary to pneumonectomy) Cardiovascular: No edema, Regular rate/rhythm, Normal S1 S2 Gastrointestinal: Normal bowel sounds, Soft and benign Musculoskeletal: No clubbing, No contractures Laboratory Data (last 24 hrs) 12/08/18 17:05: Sodium 136, Potassium 5.1, BUN 35 H, Creatinine 1.55 H, Glucose 285 H 12/08/18 16:15: WBC 20.2 H* D, Hgb 14.9, Hct 45.3 H, Plt Count 475 H D 12/08/18 16:15: Sodium Cancelled, Potassium Cancelled, BUN Cancelled, Creatinine Cancelled, Glucose Cancelled - Problems (1) Respiratory failure Current Visit: Yes Status: Acute Plan: Patient is 83 years of age admitted with respiratory distress elevated white count possible infection continue with vancomycin and Zosyn for now white count is declining he appears to be on maximum bronchodilator therapy at home risk for thromboembolism I have ordered venous Dopplers echocardiogram pro calcitonin level elevated patient has renal insufficiency blood pressure is also mildly elevated she is on steroids and diuretics continue with present therapy right now (2) Acute respiratory distress Onset Date: 12/09/18 Current Visit: Yes Status: Acute
--- NOTE | 2018-12-09 16:23 | P.PN ---
Subjective Date of Service: 12/09/18 Chief Complaint: Respiratory distress Subjective: No C/O voiced, Improving Patient seen and examined at bedside. No family at bedside. Chart reviewed and case discussed with nursing staff. Patient much more awake and alert today. Review of Systems 10-point ROS is otherwise unremarkable Physical Examination - Vital Signs Temperature: 97.2 F Blood Pressure: 164/95 Pulse: 113 Respirations: 31 Pulse Ox (%): 96 - Physical Exam General: Alert, In no apparent distress, Oriented x3 HEENT: Atraumatic, PERRLA, EOMI Neck: Supple, JVD not distended Respiratory: Diminished, Crackles/rales Cardiovascular: Regular rate/rhythm, Normal S1 S2 Gastrointestinal: Normal bowel sounds, No tenderness Musculoskeletal: No tenderness Integumentary: No rashes Neurological: Normal speech, Normal tone, Normal affect Lymphatics: No axilla or inguinal lymphadenopathy - Studies Laboratory Data (last 24 hrs) 12/08/18 17:05: Sodium 136, Potassium 5.1, BUN 35 H, Creatinine 1.55 H, Glucose 285 H 12/08/18 16:15: WBC 20.2 H* D, Hgb 14.9, Hct 45.3 H, Plt Count 475 H D 12/08/18 16:15: Sodium Cancelled, Potassium Cancelled, BUN Cancelled, Creatinine Cancelled, Glucose Cancelled Assessment And Plan - Current Problems (Diagnosis) (1) Acute respiratory distress Onset Date: 12/09/18 Current Visit: Yes Status: Acute (2) Hypercapnic respiratory failure Onset Date: 12/09/18 Current Visit: Yes Status: Acute (3) H/O pneumonectomy Current Visit: Yes Status: Acute (4) Sepsis Onset Date: 12/09/18 Current Visit: Yes Status: Acute Qualifiers: Sepsis type: sepsis due to unspecified organism Qualified Code(s): A41.9 - Sepsis, unspecified organism (5) Congestive heart failure (CHF) Current Visit: Yes Status: Acute Qualifiers: Heart failure type: unspecified Heart failure chronicity: chronic Qualified Code(s): I50.9 - Heart failure, unspecified (6) Pneumonia Current Visit: Yes Status: Acute Qualifiers: Pneumonia type: due to unspecified organism Laterality: left Lung location: unspecified part of lung Qualified Code(s): J18.9 - Pneumonia, unspecified organism - Plan Continue to monitor in ICU Continue Breathing treatments and IV antibiotics for possible infectious pneumonia. Continue steroids, low dose. Continue Bi-pap. Patient is a DNI/DNR - this was confirmed with the patient by ER physician as well as me. Patient's son's at bedside also noted that patient did not want to be intubated. Overall, poor prognosis. Will consider discussing comfort care/hospice with patient and family. Time Spent Managing PTS Care (In Minutes): 35
[2018-12-09 17:13] LABS: Arterial Blood Carboxyhemoglob 1.1 % (0-1.5); Blood Gas Oxyhemoglobin 96.3 % (94-97)
[2018-12-09] MEDS: CARVEDILOL 3.125 MG TAB PO SCH (17:17)
[2018-12-09] MEDS ORDERED: VANCOMYCIN 750 MG in NA CHLORIDE 0.9% 150 ML IVPB SCH (18:00)
--- NOTE | 2018-12-09 18:38 | RAD REPORT ---
EXAM DESCRIPTION: USExtrem Venous W Compress Bil12/09/2018 5:59 pm CLINICAL HISTORY: Bilateral leg swelling COMPARISON: none FINDINGS: The common femoral, superficial femoral, popliteal and posterior tibial veins bilaterally are compressible and demonstrate augmentation. Doppler demonstrates good flow. IMPRESSION: No evidence of deep venous thrombosis involving either lower extremity.
[2018-12-09] MEDS: ATORVASTATIN 10 MG TAB PO SCH (20:26)
[2018-12-09] MEDS: ENSURE ENLIVE 237 ML CAN PO SCH (20:26)
[2018-12-09] MEDS: JUVEN PACKET PO SCH (20:27)
[2018-12-09] MEDS: HOME MED 1 EA UNK (Travoprost (Benzalkonium) [Travatan 0.004% Eye Drop] 1 GTT) EACH EYE SCH (20:27)
[2018-12-09] MEDS: ARFORMOTEROL TARTRATE 15 MCG/2 ML VIAL.NEB IH SCH (20:27)
[2018-12-09] MEDS ORDERED: METOPROLOL TAR 25 MG TAB PO SCH (21:00)
[2018-12-10] MEDS: METHYLPREDNISOLONE 40 MG INJ IV SCH ×3 (00:14→18:04)
[2018-12-10] MEDS: PIPER/TAZO/NS 2.25gm 2.25 GM/50 ML BAG IV SCH ×4 (00:14→18:04)
[2018-12-10] MEDS: IPRATROPIUM BROM 0.5MG/2.5ML NEB SCH ×4 (02:14→19:38)
[2018-12-10] MEDS: CARVEDILOL 3.125 MG TAB PO SCH ×2 (05:26→18:07)
[2018-12-10] MEDS: LEVOTHYROXINE SOD 0.025 MG TAB PO SCH (05:30)
[2018-12-10] MEDS: ARFORMOTEROL TARTRATE 15 MCG/2 ML VIAL.NEB IH SCH ×2 (07:35→19:38)
[2018-12-10] MEDS: ALLOPURINOL 100 MG TAB PO SCH (08:43)
[2018-12-10] MEDS: FERROUS SULFATE 325 MG TAB PO SCH (08:43)
[2018-12-10] MEDS: SPIRONOLACTONE 25 MG TABLET PO SCH (08:43)
[2018-12-10] MEDS: ASPIRIN 81 MG CHEWABLE TABLET PO SCH (08:44)
[2018-12-10] MEDS: ENSURE ENLIVE 237 ML CAN PO SCH ×2 (08:44→21:00)
[2018-12-10] MEDS: JUVEN PACKET PO SCH ×2 (08:45→21:58)
[2018-12-10] MEDS: ENOXAPARIN 30 MG/0.3 ML SQ SCH (08:45)
[2018-12-10] MEDS ORDERED: AMLODIPINE 10 MG TAB PO SCH (09:00)
[2018-12-10] MEDS ORDERED: LEVOTHYROXINE SOD 0.025 MG TAB PO SCH (09:00)
--- NOTE | 2018-12-10 12:17 | P.PN ---
Subjective Date of Service: 12/10/18 Chief Complaint: Respiratory distress Subjective: Improving (Patient is doing much better today congestion has improved no new complaint) Review of Systems General: Weakness Respiratory: Shortness of Breath Physical Examination - Vital Signs Temperature: 97.2 F Blood Pressure: 152/66 Pulse: 78 Respirations: 18 Pulse Ox (%): 98 - Physical Exam General: Alert, In no apparent distress, Oriented x3 Respiratory: Diminished (Diminished on the right side), Expiratory wheezes Cardiovascular: Regular rate/rhythm Assessment & Plan - Problems (Diagnosis) (1) Respiratory failure Current Visit: Yes Status: Resolved Plan: Patient is 83 years of age admitted with respiratory distress elevated white count possible infection continue with vancomycin and Zosyn for now white count is declining he appears to be on maximum bronchodilator therapy at home risk for thromboembolism I have ordered venous Dopplers echocardiogram pro calcitonin level elevated patient has renal insufficiency blood pressure is also mildly elevated she is on steroids and diuretics continue with present therapy right now Qualifiers: Respiratory failure complication: unspecified whether with hypoxia or hypercapnia (2) COPD exacerbation Current Visit: Yes Status: Acute Plan: Patient has improved white count is declining cultures negative possible infection pneumonia continue with present treatment including steroids antibiotics once of white count is normal patient can be discharged home with p.o. antibiotics check room air pulse ox patient is mildly hypercapnic will check if she qualifies for home O2 also ordered patient Ranjana at the time of discharge and reduce the prednisone to 10 mg a day she doesangel Aparicio
--- NOTE | 2018-12-10 13:19 | P.PN ---
Subjective Date of Service: 12/10/18 Chief Complaint: Respiratory distress Subjective: Improving Patient seen and examined at bedside. No family at bedside. Chart reviewed and case discussed with nursing staff. Review of Systems 10-point ROS is otherwise unremarkable Physical Examination - Vital Signs Temperature: 97.2 F Blood Pressure: 152/66 Pulse: 78 Respirations: 18 Pulse Ox (%): 98 - Physical Exam General: Alert, In no apparent distress, Oriented x3 HEENT: Atraumatic, PERRLA, EOMI Neck: Supple, JVD not distended Respiratory: Diminished Cardiovascular: Regular rate/rhythm, Normal S1 S2 Gastrointestinal: Normal bowel sounds, No tenderness Musculoskeletal: No tenderness Integumentary: No rashes Neurological: Normal speech, Normal tone, Normal affect Assessment And Plan - Current Problems (Diagnosis) (1) Acute respiratory distress Onset Date: 12/09/18 Current Visit: Yes Status: Acute (2) Hypercapnic respiratory failure Onset Date: 12/09/18 Current Visit: Yes Status: Acute (3) H/O pneumonectomy Current Visit: Yes Status: Acute (4) Sepsis Onset Date: 12/09/18 Current Visit: Yes Status: Acute Qualifiers: Sepsis type: sepsis due to unspecified organism Qualified Code(s): A41.9 - Sepsis, unspecified organism (5) Congestive heart failure (CHF) Current Visit: Yes Status: Acute Qualifiers: Heart failure type: unspecified Heart failure chronicity: chronic Qualified Code(s): I50.9 - Heart failure, unspecified (6) Pneumonia Current Visit: Yes Status: Acute Qualifiers: Pneumonia type: due to unspecified organism Laterality: left Lung location: unspecified part of lung Qualified Code(s): J18.9 - Pneumonia, unspecified organism - Plan Patient Problems: Acute respiratory distress (Acute 12/09/18) R06.03 COPD exacerbation (Acute) J44.1 Congestive heart failure (CHF) (Acute) I50.9 H/O pneumonectomy (Acute) Z98.890, Z90.2 Hypercapnic respiratory failure (Acute 12/09/18) J96.92 Pneumonia (Acute) J18.9 Sepsis (Acute 12/09/18) A41.9 Patient's risk for status post improved. Continue breathing treatments IV antibiotics for possible infectious pneumonia. Continue steroids Continue Bi-pap as needed. Patient is a DNI/DNR - this was confirmed with the patient by ER physician as well as me. Patient's son's at bedside also noted that patient did not want to be intubated. Overall, poor prognosis. Will consider discussing comfort care/hospice with patient and family.
--- NOTE | 2018-12-10 14:43 | ECHO ---
HEIGHT: 4 ft 11 in WEIGHT: 84 lb 8 oz DATE OF STUDY: 12/09/[address]: Semaj Lombardo MD 2-DIMENSIONAL: YES M.MODE: YES DOPPLER: YES COLOR FLOW: YES TDS: YES PORTABLE: YES DEFINITY: NO BUBBLE STUDY: NO DIAGNOSIS: RESPIRATORY FAILURE CARDIAC HISTORY: CATHERIZATION: NO SURGERY: NO PROSTHETIC VALVE: NO PACEMAKER: NO MEASUREMENTS (cm) DIASTOLIC (NORMALS) SYSTOLIC (NORMALS) IVSd (0.6-1.2) LA Diam (1.9-4.0) LVEF % LVIDd (3.5-5.7) LVIDs (2.0-3.5) %FS % LVPWd (0.6-1.2) Ao Diam 2.6 (2.0-3.7) 2 DIMENSIONAL ASSESSMENT: RIGHT ATRIUM: NORMAL LEFT ATRIUM: NORMAL RIGHT VENTRICLE: NORMAL LEFT VENTRICLE: NORMAL TRICUSPID VALVE: NORMAL MITRAL VALVE: MITRAL ANNULAR CALCIFICATION PULMONIC VALVE: NORMAL AORTIC VALVE: SCLEROSIS PERICARDIAL EFFUSION: NONE AORTIC ROOT: NORMAL LEFT VENTRICULAR WALL MOTION: NORMAL. DOPPLER/COLOR FLOW: NORMAL. COMMENTS: TECHNICALLY DIFFICULT STUDY. GROSSLY NORMAL EJECTION FRACTION. LEFT VENTRICULAR HYPERTROPHY- SEVERE. DECREASED LEFT VENTRICULAR COMPLIANCE. MITRAL ANNULAR CALCIFICATION. AORTIC SCLEROSIS. TECHNOLOGIST: JUAN VIEIRA
[2018-12-10] MEDS: HOME MED 1 EA UNK (Travoprost (Benzalkonium) [Travatan 0.004% Eye Drop] 1 GTT) EACH EYE SCH (21:00)
[2018-12-10] MEDS: ATORVASTATIN 10 MG TAB PO SCH (21:00)
[2018-12-11] MEDS: IPRATROPIUM BROM 0.5MG/2.5ML NEB SCH ×3 (01:21→13:19)
[2018-12-11] MEDS: METHYLPREDNISOLONE 40 MG INJ IV SCH ×2 (01:29→09:28)
[2018-12-11] MEDS: PIPER/TAZO/NS 2.25gm 2.25 GM/50 ML BAG IV SCH ×2 (01:30→05:45)
[2018-12-11] MEDS: LEVOTHYROXINE SOD 0.025 MG TAB PO SCH (05:44)
[2018-12-11] MEDS: CARVEDILOL 3.125 MG TAB PO SCH (06:54)
[2018-12-11] MEDS: ARFORMOTEROL TARTRATE 15 MCG/2 ML VIAL.NEB IH SCH (08:10)
[2018-12-11] MEDS: ENOXAPARIN 30 MG/0.3 ML SQ SCH ×2 (09:00→09:28)
[2018-12-11] MEDS: JUVEN PACKET PO SCH ×2 (09:00)
[2018-12-11] MEDS: ENSURE ENLIVE 237 ML CAN PO SCH (09:00)
[2018-12-11] MEDS: SPIRONOLACTONE 25 MG TABLET PO SCH (09:27)
[2018-12-11] MEDS: ASPIRIN 81 MG CHEWABLE TABLET PO SCH (09:28)
[2018-12-11] MEDS: FERROUS SULFATE 325 MG TAB PO SCH (09:28)
[2018-12-11] MEDS: ALLOPURINOL 100 MG TAB PO SCH (09:28)
[2018-12-11 10:36] VITALS: O2SAT 99
[2018-12-11 12:39] VITALS: BP 160/60; TEMP 97.9
--- NOTE | 2018-12-12 17:15 | P.DS ---
Admission Date: 12/08/18 Discharge Date: 12/11/18 Disposition: TRANSFER TO SNF - REHAB Discharge Condition: FAIR Reason for Admission: Respiratory distress Consultations: Pulmonology, Dr. Lombardo - Problems (1) Acute respiratory distress Onset Date: 12/09/18 Status: Acute (2) Hypercapnic respiratory failure Onset Date: 12/09/18 Status: Acute (3) H/O pneumonectomy Status: Acute (4) Sepsis Onset Date: 12/09/18 Status: Acute Qualifiers: Sepsis type: sepsis due to unspecified organism Qualified Code(s): A41.9 - Sepsis, unspecified organism (5) Congestive heart failure (CHF) Status: Acute Qualifiers: Heart failure type: unspecified Heart failure chronicity: chronic Qualified Code(s): I50.9 - Heart failure, unspecified (6) Pneumonia Status: Acute Qualifiers: Pneumonia type: due to unspecified organism Laterality: left Lung location: unspecified part of lung Qualified Code(s): J18.9 - Pneumonia, unspecified organism Brief History of Present Illness: This is an 83-year-old female admitted for respiratory distress. Patient was recently at [facility] for similar issues, she was given breathing treatments antibiotics with IV and then was discharged to intermediate include. She continued to receive breathing treatments and on the day of admission, breathing treatments did not help and her breathing got worse and she was sent to the ER from the intermediate. Patient has a history of a right pneumonectomy for cancer. Patient and family unsure of what type of cancer as this was a long time ago. In the ER the patient received supplemental oxygen, breathing treatments, IV steroids which helped her breathing and her oxygen saturation. At the time of my exam, her mentation had improved and she is satting 88-90% on 3 L and 91% on 4 L of oxygen by nasal cannula. Hospital Course: Admited to ICU. Continued Breathing treatments and IV antibiotics for possible infectious pneumonia. Continued low dose steroids. Continued Bi-pap. Patient is a DNI/DNR - this was confirmed with the patient by ER physician as well as me. Patient's son's at bedside also noted that patient did not want to be intubated. Patient's risk for status post improved. Continue breathing treatments IV antibiotics for possible infectious pneumonia. Continue steroids Overall, poor prognosis. Patient discharged back to intermediate. Vital Signs/Physical Exam: Temp Pulse Resp BP Pulse Ox 97.9 F 60 18 160/60 H 99 12/11/18 12:00 12/11/18 12:00 12/11/18 12:00 12/11/18 12:00 12/11/18 12:00 General: Alert, In no apparent distress, Oriented x3 HEENT: Atraumatic, PERRLA, EOMI Neck: Supple, JVD not distended Respiratory: Clear to auscultation bilaterally, Normal air movement Cardiovascular: Regular rate/rhythm, Normal S1 S2 Gastrointestinal: Normal bowel sounds, No tenderness Musculoskeletal: No tenderness Integumentary: No rashes Neurological: Normal speech, Normal tone, Normal affect Lymphatics: No axilla or inguinal lymphadenopathy Laboratory Data at Discharge: WBC 14.9 K/uL (4.3-10.9) H D 12/09/18 05:20 Hgb 12.7 g/dL (12.0-15.0) 12/09/18 05:20 Hct 38.9 % (36.0-45.0) 12/09/18 05:20 Plt Count 347 K/uL (152-406) 12/09/18 05:20 Sodium 140 mmol/L (136-145) 12/09/18 05:20 Potassium 5.2 mmol/L (3.5-5.1) H 12/09/18 05:20 BUN 40 mg/dL (7-18) H 12/09/18 05:20 Creatinine 1.53 mg/dL (0.55-1.3) H 12/09/18 05:20 Glucose 145 mg/dL (74-106) H 12/09/18 05:20 Phosphorus 4.3 mg/dL (2.5-4.9) 12/09/18 05:20 Magnesium 3.0 mg/dL (1.8-2.4) H 12/09/18 05:20 Total Bilirubin 0.4 mg/dL (0.2-1.0) 12/09/18 05:20 AST 12 U/L (15-37) L 12/09/18 05:20 ALT 20 U/L (12-78) 12/09/18 05:20 Alkaline Phosphatase 79 U/L (45-117) 12/09/18 05:20 Home Medications: Alendronate Sodium 70 mg PO EVERY 7TH DAY 12/08/18 Allopurinol 200 mg PO DAILY 12/08/18 Arformoterol Tartrate [Brovana] 15 mcg IH BID 12/08/18 Aspirin Chewable [Aspirin Chewable*] 81 mg PO DAILY 12/08/18 Atorvastatin Calcium 10 mg PO BEDTIME 12/08/18 Ferrous Sulfate [Ferrous Sulfate*] 325 mg PO DAILY 12/08/18 Furosemide [Lasix*] 20 mg PO DAILY 12/08/18 Guaifenesin [Cough Syrup] 10 ml PO Q4HP PRN 12/08/18 Ipratropium/Albuterol Sulfate [Iprat-Albut 0.5-3(2.5) mg/3 ml] 1 dose IH Q6H LORazepam [Ativan*] 0.5 mg PO DAILY 12/08/18 Levothyroxine Sodium 25 mcg PO DAILY 12/08/18 Spironolactone [Aldactone*] 25 mg PO DAILY 12/08/18 Tiotropium [place] [Spiriva] 18 mcg IH DAILY 12/08/18 Travoprost (Benzalkonium) [Travatan 0.004% Eye Drop] 1 gtt EACH EYE BEDTIME Arformoterol Tartrate [Brovana] 15 mcg IH BIDRESP #60 vial.neb 12/10/18 predniSONE [Prednisone*] 10 mg PO DAILY #30 tab 12/10/18 Carvedilol [Coreg] 3.125 mg PO BID #60 tab 12/11/18 levoFLOXacin [Levaquin] 500 mg PO DAILY #7 tab 12/11/18 New Medications: Arformoterol Tartrate [Brovana] 15 mcg IH BIDRESP #60 vial.neb Carvedilol [Coreg] 3.125 mg PO BID #60 tab levoFLOXacin [Levaquin] 500 mg PO DAILY #7 tab predniSONE [Prednisone*] 10 mg PO DAILY #30 tab Patient Discharge Instructions: Please follow up with your primary care physician in 1-2 weeks. Please follow up with pulmonology in 2 weeks. Diet: Regular Activity: Ad macy Followup: Semaj Lombardo MD [ACTIVE - CAN ADMIT] - Time spent managing pt's care (in minutes): 55
[2018-12-13] MEDS ORDERED: ALENDRONATE 70 MG TAB PO SCH (06:30)
== END 2018-12-11 13:30 | DRG 871 ==
LOC: ER 16:11 → MERGE 18:44 → ERHOLD 18:44 → 3RD-ICU 21:18 → 4TH 12-09 21:05
PROVIDERS: ADMIT Family Medicine; ATTEND Family Medicine
PROC: 5A09457 Assistance with Respiratory Ventilation, 24-96 Consecutive Hours, Continuous Positive Airway Pressure (ICD-10-PCS; principal; 2018-12-08)
DX: A41.9 Sepsis, unspecified organism (principal); J18.1 Lobar pneumonia, unspecified organism; J96.02 Acute respiratory failure with hypercapnia; J44.0 Chronic obstructive pulmonary disease with (acute) lower respiratory infection; J44.1 Chronic obstructive pulmonary disease with (acute) exacerbation; I13.0 Hypertensive heart and chronic kidney disease with heart failure and stage 1 through stage 4 chronic kidney disease, or unspecified chronic kidney disease; I50.32 Chronic diastolic (congestive) heart failure; R65.20 Severe sepsis without septic shock; Z66 Do not resuscitate; Z90.2 Acquired absence of lung [part of]; E03.9 Hypothyroidism, unspecified; E78.5 Hyperlipidemia, unspecified; Z85.118 Personal history of other malignant neoplasm of bronchus and lung; N18.3 Chronic kidney disease, stage 3 (moderate)
CPT/HCPCS: 36415; 71045; 80048; 80053; 80202; 82805; 82962; 83605; 83735; 83880; 84100; 84145; 84484; 85025; 87040; 93005; 93306; 93970; 94640; 94660; 96365; 96367; 96375; 99285; J1650; J2543; J2920; J2930; J3370; J3475; J7605

== ENCOUNTER 2019-02-18 11:39 | Inpatient (IN) | payer OTHER, BC ==
--- OUTSIDE RECORDS SUMMARY | 2019-02-18 11:48 | XMS REPORT ---
:1935 Author Organization [facility] Address [address] [place] [address] Care Team Providers Name Role Phone Unavailable Unavailable Unavailable Problems This patient has no known problems. Allergies, Adverse Reactions, Alerts This patient has no known allergies or adverse reactions. Medications This patient has no known medications.
--- OUTSIDE RECORDS SUMMARY | 2019-02-18 11:48 | XMS REPORT ---
[...] Status Dosage System Date Date Spironolactone ND 05042690084 25 MG Orally Active 1 tablet Once a day with food ProAir HFA ND 00511401356 108 (90 Base) Active 2 puffs as MCG/ACT needed Inhalation every 6 hrs Metoprolol ND 16499646286 25 MG Orally Active 1/2 tablet Tartrate Twice a day with food Albuterol Sulfate ND 64042350053 (2.5 MG/3ML) Active 3 ml as 0.083% needed Inhalation Three times a day Spiriva ND 10491028228 18 MCG April Active 1 capsule HandiHaler Inhalation Once 07, a day [address] [facility] 75901738982 0.004 % Active 1 drop Ophthalmic Once into a day affected eye in the evening Synthroid [facility] 77751600914 50 MCG Orally Active 1 tablet Once a day on an empty stomach in the morning Rosuvastatin [facility] 68563760424 5 Active TAKE 1 Calcium TABLET BY MOUTH DAILY Claritin [facility] 33189984284 10 MG Orally Active 1 tablet Once a day Amlodipine [facility] 43548415983 10 MG Active TAKE 1 Besylate TABLET BY MOUTH EVERY DAY Lasix [facility] 17821694574 20 MG Orally Active 1 tablet Once a day Allopurinol [facility] 79340471505 100 MG Orally Active 1 tablet Once a day Fosamax [facility] 20277113403 70 MG Orally Oct 31, Active 1 tablet 2017 Results No Known Results Summary Purpose eClinicalWorks Submission
--- OUTSIDE RECORDS SUMMARY | 2019-02-18 11:48 | XMS REPORT ---
[...] Start End Date Status Dosage Date Benzonatate [facility] 47155511477 200 MG Orally Nov 05, Active 1 capsule Three times a 2017 day Results No Known Results Summary Purpose eClinicalWorks Submission
--- OUTSIDE RECORDS SUMMARY | 2019-02-18 11:48 | XMS REPORT ---
[...] End Status Dosage System Date Date Synthroid [facility][NOTE 3] 96329645738 50 MCG Orally Active 1 tablet Once a day on an empty stomach in the morning Metoprolol ND 80028711166 25 MG Orally Active 1/2 tablet Tartrate Twice a day with food Allopurinol ND 43197760964 100 MG Orally Active 1 tablet Once a day Spironolactone [facility][NOTE 3] 82374068304 25 MG Orally Active 1 tablet Once a day with food Lasix [facility]NOTE 3] 14363380483 20 MG Orally Active 1 tablet Once a day Rosuvastatin [facility]NOTE 3] 39569047748 5 Active TAKE 1 Calcium TABLET BY MOUTH DAILY Claritin [facility][NOTE 3] 34668250835 10 MG Orally Active 1 tablet Once a day ProAir HFA [facility][NOTE 3] 40085895193 108 (90 Base) Active 2 puffs as MCG/ACT needed Inhalation every 6 hrs Albuterol Sulfate [facility][NOTE 3] 07507615929 (2.5 MG/3ML) Active 3 ml as 0.083% needed Inhalation Three times a day Travatan Z [facility][NOTE 3] 95952513586 0.004 % Active 1 drop Ophthalmic Once into a day affected eye in the evening Spiriva [facility][NOTE 3] 25736594722 18 MCG Oct 08, Active 1 capsule HandiHaler Inhalation Once 2019 a day Amlodipine [facility][NOTE 3] 84384056230 10 MG Active TAKE 1 Besylate TABLET BY MOUTH EVERY DAY Spiriva [facility][NOTE 3] 96888978699 18 MCG Active 1 capsule HandiHaler Inhalation Once a day Fosamax [facility][NOTE 3] 56428276227 70 MG Orally April 11, Active 1 tablet once a week 2018 Results No Known Results Summary Purpose eClinicalWorks Submission
--- OUTSIDE RECORDS SUMMARY | 2019-02-18 11:48 | XMS REPORT ---
[...] End Status Dosage System Date Date Claritin [facility] 43649508368 10 MG Orally Active 1 tablet Once a day ProAir HFA [facility] 80376028774 108 (90 Base) Active 2 puffs as MCG/ACT needed Inhalation every 6 hrs Allopurinol ND 56340864515 100 MG Orally Active 1 tablet Once a day Albuterol Sulfate [facility] 54936372123 (2.5 MG/3ML) Active 3 ml as 0.083% needed Inhalation Three times a day Rosuvastatin [facility] 43138654287 5 Active TAKE 1 Calcium TABLET BY MOUTH DAILY Amlodipine [facility] 53015726214 10 MG Active TAKE 1 Besylate TABLET BY MOUTH EVERY DAY Travatan Z [facility] 94475898778 0.004 % Active 1 drop Ophthalmic Once into a day affected eye in the evening Fosamax [facility] 42014528676 70 MG Orally Active 1 tablet Synthroid [facility] 06424818239 50 MCG Orally Active 1 tablet Once a day on an empty stomach in the morning Spiriva [facility] 16913811222 18 MCG Active 1 capsule HandiHaler Inhalation Once a day Metoprolol [facility] 28916875055 25 MG Orally Active 1/2 tablet Tartrate Twice a day with food Spironolactone [facility] 77673144996 25 MG Orally Active 1 tablet Once a day with food Lasix [facility] 58786885446 20 MG Orally Active 1 tablet Once a day Results No Known Results Summary Purpose eClinicalWorks Submission
--- NOTE | 2019-02-18 12:18 | RAD REPORT ---
EXAM DESCRIPTION: Saul Single View02/18/2019 12:13 pm CLINICAL HISTORY: Shortness of breath COMPARISON: none FINDINGS: Right hemithorax is opaque with volume loss. Presumably the patient has had a a right lob ectomy. If the patient has not had a lobectomy then this indicates complete atelectasis. Left lung appears clear of acute infiltrate.
[2019-02-18] MEDS ORDERED: METHYLPREDNISOLONE 125 MG INJ ONE (12:41)
[2019-02-18] MEDS ORDERED: NA CHLORIDE 0.9% 500 ML ONE (12:41)
[2019-02-18] MEDS ORDERED: LEVALBUTEROL 1.25 MG/3 ML NEB ONE (12:41)
--- NOTE | 2019-02-18 12:48 | EKG ---
Test Date: 2019-02-18 Test Time: 11:46:34 Bead Stringer: CHRIS MEASUREMENT RESULTS: Intervals: Rate: 114 NH: 114 QRSD: 68 QT: 316 QTc: 435 [place]: P: 61 NH: 114 QRS: 29 T: 92 INTERPRETIVE STATEMENTS: Sinus tachycardia Right atrial enlargement Nonspecific T wave abnormality Abnormal ECG No previous ECG available for comparison Electronically Signed On 02-18-19 12:47:14 CDT by Louie Abdi
[2019-02-18 13:24] LABS: Absolute Lymphocytes (CBC) 1.7 K/uL (0.7-4.9); Absolute Monocytes 0.9 K/uL (0.1-1.3); Absolute Neutrophil 14.9 K/uL (1.8-8.0); Basophils % 0.4 % (0-1.3); Eosinophils % 0.1 % (0-4.4); Hematocrit 34.3 % (36.0-45.0); Lymphocytes % 9.9 % (15.3-44.8); MPV 9.1 fL (7.6-11.3)
[2019-02-18 13:45] LABS: Potassium 4.6 mmol/L (3.5-5.1); Troponin (Emerg Dept Use Only) 0.27 ng/mL (0.0-0.045)
--- NOTE | 2019-02-18 14:23 | ER ---
Nurse's Notes [facility] Name: Monica Barragan Age: 83 yrs Sex: Female : 1935 Arrival Date: 02/18/2019 Time: 11:47 Bed 3 Private MD: Diagnosis: Unspecified combined systolic (congestive) and diastolic (congestive) heart failure;Dyspnea, unspecified;Hypoxemia Presentation: 02/18 11:48 Presenting complaint: EMS states: PROGRESSIVE SOB x3 DAYS. Transition of care: patient bp was received from another setting of care ([facility]), [place]. Onset of symptoms is unknown. Risk Assessment: Do you want to hurt yourself or someone else? Patient reports no desire to harm self or others. Initial Sepsis Screen: Does the patient meet any 2 criteria? HR > 90 bpm. Does the patient have a suspected source of infection? Yes: Productive cough/pneumonia. Care prior to arrival: Medication(s) given: LOPRESSOR 5MG IVP IV initiated. 22 GA, in the left antecubital area, Med neb given. Oxygen administered. via nasal cannula. 11:48 Method Of Arrival: EMS: [facility] bp 11:48 Acuity: KERWIN 3 bp Triage Assessment: 11:48 General: Appears distressed, comfortable, slender, Behavior is cooperative, appropriate bp for age, anxious. Pain: Denies pain. Respiratory: Reports shortness of breath Breath sounds with crackles Onset: The symptoms/episode began/occurred 3 DAYS, the patient has moderate shortness of breath. Historical: - Allergies: 12:00 No Known Allergies; bp - Home Meds: 12:00 alendronate 70 mg oral tab 1 tab once wkly [Active]; allopurinol 100 mg Oral tab 2 tabs bp once daily [Active]; aspirin 81 mg Oral chew 1 tab once daily [Active]; atorvastatin 10 mg oral tab 1 tab once daily [Active]; carvedilol 3.125 mg oral tab 1 tab 2 times per day [Active]; furosemide 20 mg Oral tab 1 tab once daily [Active]; prednisone 10 mg oral tab 1 tab [Active]; - PMHx: 12:00 CHF; Pneumonia; Hyperlipidemia; Hypothyroidism; Hypertension; bp - Immunization history:: Adult Immunizations up to date. - Social history:: Smoking status: Patient/guardian denies using tobacco. - Ebola Screening: : Patient negative for fever greater than or equal to 101.5 degrees Fahrenheit, and additional compatible Ebola Virus Disease symptoms Patient denies exposure to infectious person Patient denies travel to an Ebola-affected area in the 21 days before illness onset No symptoms or risks identified at this time. - Family history:: not pertinent. - Hospitalizations: : No recent hospitalization is reported. Screenin:54 Abuse screen: Denies threats or abuse. Denies injuries from another. Nutritional bp screening: No deficits noted. Tuberculosis screening: No symptoms or risk factors identified. Fall Risk None identified. Assessment: 11:50 General: Appears in no apparent distress. comfortable, slender, Behavior is bp cooperative, appropriate for age, anxious. Pain: Denies pain. Neuro: Level of Consciousness is awake, alert, obeys commands, Oriented to person, place, time, situation, Appropriate for age. Cardiovascular: Rhythm is atrial fibrillation with rapid ventricular response. Respiratory: Airway is patent Respiratory effort is even, labored, with nasal flaring, pursed lip, Respiratory pattern is tachypnea. GI: No signs and/or symptoms were reported involving the gastrointestinal system. : No signs and/or symptoms were reported regarding the genitourinary system. EENT: No deficits noted. Derm: No deficits noted. Musculoskeletal: Circulation, motion, and sensation intact. Range of motion: intact in all extremities. 11:50 Respiratory: Breath sounds are coarse Breath sounds with wheezes. bp 12:59 Reassessment: RT paged for BiPAP. iw 13:09 Reassessment: RT AT B/S WITH BIPAP. bp Vital Signs: 11:48 BP 167 / 90; Pulse 116; Resp 24; Temp 97.8; Pulse Ox 96% on NC; Weight 38.56 kg; Height bp 4 ft. 11 in. (149.86 cm); 12:58 BP 163 / 73; Pulse 140; Resp 40 S; Pulse Ox 96% on 2 lpm NC; iw 14:13 BP 131 / 70; Pulse 137; Resp 30; Pulse Ox 96% on BiPAP; aj1 15:00 BP 118 / 63; Pulse 131; Resp 30; Pulse Ox 97% ; bp 16:40 BP 113 / 72; Pulse 127; Resp 25; Pulse Ox 98% ; bp 11:48 Body Mass Index 17.17 (38.56 kg, 149.86 cm) bp ED Course: 11:47 Patient arrived in ED. bp 11:48 Virgil Roach MD is Attending Physician. rn 11:48 Arm band placed on. EKG completed in triage. Results shown to MD. bp 11:49 Triage completed. bp 11:54 Patient has correct armband on for positive identification. Bed in low position. Call bp light in reach. Side rails up X2. principal database developer on. Pulse ox on. NIBP on. 11:54 Maintain EMS IV. Dressing intact. Good blood return noted. Site clean \T\ dry. Gauge \T\ bp site: 22 GAUGE LEFT AC. 11:59 EKG done, by pet technologist. reviewed by Virgil Roach MD. at1 12:07 Ric Ceballos, RN is Primary Nurse. bp 12:09 X-ray completed. Portable x-ray completed in exam room. Patient tolerated procedure jb2 well. 12:11 XRAY CXR (1 view) In Process Unspecified. EDMS 13:00 Inserted saline lock: 22 gauge in left wrist, using aseptic technique. Blood collected. bp 14:21 Lacy Shin MD is Hospitalizing Provider. rn 16:40 No provider procedures requiring assistance completed. Patient admitted, IV remains in bp place. Administered Medications: 12:10 Drug: SOLU-Medrol 125 mg Route: IVP; Site: left antecubital; bp 12:10 Drug: Xopenex (3) 1.25 mg Route: Inhalation; bp 12:10 Drug: NS 0.9% 500 ml Route: IV; Rate: bolus; Site: left antecubital; bp 13:30 Follow up: IV Status: Completed infusion; IV Intake: 500ml bp 13:06 CANCELLED (Physician Discretion): NS 0.9% 500 ml IV at bolus once bp 14:58 Drug: Lasix 40 mg Route: IVP; Site: left antecubital; bp Intake: 13:30 IV: 500ml; Total: 500ml. bp Outcome: 14:22 Decision to Hospitalize by Provider. rn 16:41 Admitted to Tele accompanied by tech, family with patient, via stretcher, room 404, bp with chart, Report called to AMA GRAHAM 16:41 Condition: stable 16:41 Instructed on the need for admit. 16:42 Patient left the ED. bp Signatures: Dispatcher [employer] EDNM Chepe, Zuri, RN RN aj1 Jordon Minaya jb2 Liliane Mobley RN RN iw Nieto, Roman, MD MD rn Gonzales, Amanda, hammer repairer EKG Tat1 Ric Ceballos RN RN bp Corrections: (The following items were deleted from the chart) 16:41 11:48 BP 167 / 90; Pulse 116bpm; Resp 24bpm; Pulse Ox 96% Nasal Cannula; 38.56 kg; bp Height 4 ft. 11 in.; BMI: 17.1; bp
--- NOTE | 2019-02-18 14:23 | EDPHYS ---
Physician Documentation [facility] Name: Monica Barragan Age: 83 yrs Sex: Female : 1935 Arrival Date: 02/18/2019 Time: 11:47 Bed 3 Private MD: ED Physician Virgil Roach HPI: 02/18 12:41 This 83 yrs old Female presents to ER via EMS with complaints of Shortness Of rn Breath. 12:41 The patient has shortness of breath at rest, with light activity. Onset: The rn symptoms/episode began/occurred 3 day(s) ago. Duration: The symptoms are continuous. The patient's shortness of breath is aggravated by exertion, light activity, is alleviated by nothing. Severity of symptoms: At their worst the symptoms were moderate in the emergency department the symptoms are unchanged. The patient has experienced similar episodes in the past, chronically. Reports ever since right lung removed in , has had respiratory problems, no fever, + mildly productive cough, + mild sob, reports they have been trying to wean her off of oxygen for some time. No hemoptysis.. Historical: - Allergies: 12:00 No Known Allergies; bp - Home Meds: 12:00 alendronate 70 mg oral tab 1 tab once wkly [Active]; allopurinol 100 mg Oral tab 2 tabs bp once daily [Active]; aspirin 81 mg Oral chew 1 tab once daily [Active]; atorvastatin 10 mg oral tab 1 tab once daily [Active]; carvedilol 3.125 mg oral tab 1 tab 2 times per day [Active]; furosemide 20 mg Oral tab 1 tab once daily [Active]; prednisone 10 mg oral tab 1 tab [Active]; - PMHx: 12:00 CHF; Pneumonia; Hyperlipidemia; Hypothyroidism; Hypertension; bp - Immunization history:: Adult Immunizations up to date. - Social history:: Smoking status: Patient/guardian denies using tobacco. - Ebola Screening: : Patient negative for fever greater than or equal to 101.5 degrees Fahrenheit, and additional compatible Ebola Virus Disease symptoms Patient denies exposure to infectious person Patient denies travel to an Ebola-affected area in the 21 days before illness onset No symptoms or risks identified at this time. - Family history:: not pertinent. - Hospitalizations: : No recent hospitalization is reported. ROS: 12:41 Constitutional: Negative for fever, chills, and weight loss, Eyes: Negative for injury, rn pain, redness, and discharge, Neck: Negative for injury, pain, and swelling, Cardiovascular: Negative for chest pain, palpitations, and edema, Respiratory: + cough and sob Abdomen/GI: Negative for abdominal pain, nausea, vomiting, diarrhea, and constipation, MS/Extremity: Negative for injury and deformity, Skin: Negative for injury, rash, and discoloration, Neuro: Negative for headache, weakness, numbness, tingling, and seizure. Exam: 12:41 Constitutional: Thin woman, + tachypnea Head/Face: Normocephalic, atraumatic. Eyes: rn Pupils equal round and reactive to light, extra-ocular motions intact. Lids and lashes normal. Conjunctiva and sclera are non-icteric and not injected. Cornea within normal limits. Periorbital areas with no swelling, redness, or edema. Cardiovascular: Tachycardic, regular, no murmur Respiratory: + moderate tachypnea, shallow breaths, absent right lung sounds, left with crackles, faint wheezing. Abdomen/GI: soft, non-tender MS/ Extremity: Pulses equal, no cyanosis. Neurovascular intact. Full, normal range of motion. Equal circumference. Neuro: Awake and alert, GCS 15, oriented to person, place, time, and situation. Cranial nerves II-XII grossly intact. Motor strength 4/5 in all extremities. Sensory grossly intact. Vital Signs: 11:48 BP 167 / 90; Pulse 116; Resp 24; Temp 97.8; Pulse Ox 96% on NC; Weight 38.56 kg; Height bp 4 ft. 11 in. (149.86 cm); 12:58 BP 163 / 73; Pulse 140; Resp 40 S; Pulse Ox 96% on 2 lpm NC; iw 14:13 BP 131 / 70; Pulse 137; Resp 30; Pulse Ox 96% on BiPAP; aj1 15:00 BP 118 / 63; Pulse 131; Resp 30; Pulse Ox 97% ; bp 16:40 BP 113 / 72; Pulse 127; Resp 25; Pulse Ox 98% ; bp 11:48 Body Mass Index 17.17 (38.56 kg, 149.86 cm) bp MDM: 11:48 Patient medically screened. rn 14:21 Differential diagnosis: CHF exacerbation, Chronic Obstructive Pulmonary Disease rn Myocardial Infarction pneumonia, Pneumothorax pulmonary edema. Data reviewed: vital signs, nurses notes, lab test result(s), EKG, radiologic studies, plain films, and as a result, I will admit patient. Counseling: I had a detailed discussion with the patient and/or guardian regarding: the historical points, exam findings, and any diagnostic results supporting the discharge/admit diagnosis, lab results, radiology results, the need for further work-up and treatment in the hospital. Response to treatment: the patient's symptoms have mildly improved after treatment, and as a result, I will admit patient. Admission orders: after a detailed discussion of the patient's condition and case, the admit orders are written by me. ED course: Admitted to Dr. Shin for CHF, dyspnea, hypoxia. 02/18 11:57 Order name: Blood Culture Adult (2) rn 02/18 11:57 Order name: BMP; Complete Time: 14:08 rn 02/18 11:57 Order name: CBC with Diff rn 02/18 11:57 Order name: NT PRO-BNP; Complete Time: 14:08 rn 02/18 11:57 Order name: Troponin (emerg Dept Use Only); Complete Time: 14:08 rn 02/18 13:29 Order name: CBC Smear Scan EDMS 02/18 11:57 Order name: XRAY CXR (1 view); Complete Time: 12:20 rn 02/18 13:18 Order name: BIPAP rn 02/18 14:53 Order name: ABG eb 02/18 11:57 Order name: EKG; Complete Time: 11:57 rn 02/18 11:57 Order name: Cardiac monitoring; Complete Time: 11:58 rn 02/18 11:57 Order name: EKG - Nurse/Tech; Complete Time: 11:58 rn 02/18 11:57 Order name: IV Saline Lock; Complete Time: 12:46 rn 02/18 11:57 Order name: Labs collected and sent; Complete Time: 13:12 rn 02/18 11:57 Order name: O2 Per Protocol; Complete Time: 11:58 rn 02/18 11:57 Order name: O2 Sat Monitoring; Complete Time: 11:58 rn Administered Medications: 12:10 Drug: SOLU-Medrol 125 mg Route: IVP; Site: left antecubital; bp 12:10 Drug: Xopenex (3) 1.25 mg Route: Inhalation; bp 12:10 Drug: NS 0.9% 500 ml Route: IV; Rate: bolus; Site: left antecubital; bp 13:30 Follow up: IV Status: Completed infusion; IV Intake: 500ml bp 13:06 CANCELLED (Physician Discretion): NS 0.9% 500 ml IV at bolus once bp 14:58 Drug: Lasix 40 mg Route: IVP; Site: left antecubital; bp Disposition: 14:21 Critical Care:. rn Disposition: 02/18/19 14:22 Hospitalization ordered by Lacy Shin for Inpatient Admission. Preliminary diagnosis are Unspecified combined systolic (congestive) and diastolic (congestive) heart failure, Dyspnea, unspecified, Hypoxemia. - Bed requested for Telemetry/MedSurg (Inpatient). - Status is Inpatient Admission. bp - Condition is Fair. - Problem is an acute exacerbation. - Symptoms have improved. UTI on Admission? No Critical care time excluding procedures: 14:21 Critical care time: Bedside Care: 25 minutes, Consultation: 5 minutes. Total time: 30 rn minutes Signatures: Dispatcher [employer] EDNM Tonia Porras RN RN dw Nieto, Roman, MD MD rn Peltier, Brian, RN RN bp Corrections: (The following items were deleted from the chart) 12:45 12:41 Constitutional: Thin woman, + tachypnea Head/Face: Normocephalic, atraumatic. rn Eyes: Pupils equal round and reactive to light, extra-ocular motions intact. Lids and lashes normal. Conjunctiva and sclera are non-icteric and not injected. Cornea within normal limits. Periorbital areas with no swelling, redness, or edema. Cardiovascular: Tachycardic, regular, no murmur Respiratory: + moderate tachypnea, shallow breaths, absent right lung sounds, left with crackles, faint wheezing. Abdomen/GI: soft, non-tender MS/ Extremity: Pulses equal, no cyanosis. Neurovascular intact. Full, normal range of motion. Equal circumference. Neuro: Awake and alert, GCS 15, oriented to person, place, time, and situation. Cranial nerves II-XII grossly intact. Motor strength 4/5 in all extremities. Sensory grossly intact. rn 13:06 12:59 NS 0.9% 500 ml IV at bolus once ordered. rn bp 15:40 14:22 Hospitalization Ordered by Lacy Shin MD for Inpatient Admission. Preliminary dw diagnosis is Unspecified combined systolic (congestive) and diastolic (congestive) heart failure; Dyspnea, unspecified; Hypoxemia. Bed requested for Telemetry/MedSurg (Inpatient). Status is Inpatient Admission. Condition is Fair. Problem is an acute exacerbation. Symptoms have improved. UTI on Admission? No. rn 16:42 15:40 02/18/2019 14:22 Hospitalization Ordered by Lacy Shin MD for Inpatient bp Admission. Preliminary diagnosis is Unspecified combined systolic (congestive) and diastolic (congestive) heart failure; Dyspnea, unspecified; Hypoxemia. Bed requested for Telemetry/MedSurg (Inpatient). Status is Inpatient Admission. Condition is Fair. Problem is an acute exacerbation. Symptoms have improved. UTI on Admission? No. dw
[2019-02-18 14:47] LABS: Anisocytosis 1+; Blood Morphology Comment NOTED (NOT SEEN); Macrocytosis 2+; Platelet Estimate ADEQ; Urine White Blood Cell Casts OK
[2019-02-18] MEDS ORDERED: FUROSEMIDE 40 MG/4 ML VIAL ONE (15:07)
[2019-02-18 15:25] LABS: Arterial Blood Carboxyhemoglob 1.4 % (0-1.5); Blood Gas Oxyhemoglobin 93.8 % (94-97); Blood O2 Saturation 96.1 % (92-98.5)
[2019-02-18 17:03] VITALS: BMI 15.9
[2019-02-18 18:17] LABS: Urine Appearance CLEAR; Urine Bilirubin NEGATIVE (NEG); Urine Blood NEGATIVE (NEG); Urine Color YELLOW; Urine Glucose NEGATIVE (NEG); Urine Protein 2+ (NEG); Urine Specific Gravity 1.015 (1.005-1.030); Urine Urobilinogen 0.2 mg/dL (0.2-1.0); Urine pH 5.5 (5.0-7.0)
[2019-02-18 18:29] LABS: Urine Microscopic Reflex ORDER UMIC
--- NOTE | 2019-02-18 18:32 | P.HP ---
Certification for Inpatient Patient admitted to: Inpatient With expected LOS: >2 Midnights Practitioner: I am a practitioner with admitting privileges, knowledge of patient current condition, hospital course, and medical plan of care. Services: Services provided to patient in accordance with Admission requirements found in Title 42 Section 412.3 of the Code of Federal Regulations Patient History Date of Service: 02/18/19 Reason for admission: Acute Respiratory distress History of Present Illness: This is an 83-year-old female admitted for respiratory distress. Patient was recently discharged from here for similar issues. [facility] [place] for physical [facility] and rehab. She was getting breathing treatments at the skilled nursing and was finally weaned off of oxygen, but for the past few days, she has been getting progressively short of breath and she was sent to the ER from the penit[facility]iary. Patient has a history of a right pneumonectomy for cancer. Patient and family unsure of what type of cancer as this was a long time ago. In the ER the patient was tachypneic and tachycardic. She received supplemental oxygen, breathing treatments, IV steroids which helped her breathing and her oxygen saturation. She was put on bipap, which helped improve her symptoms. At the time of my exam, her mentation had improved and she was still on bipap for labored breathing. Allergies milk Adverse Reaction (Verified 02/18/19 17:35) Nausea/Vomiting Home medications list reviewed: Yes Home Medications: RX: Alendronate Sodium 70 mg PO EVERY 7TH DAY 12/08/18 RX: Allopurinol 200 mg PO DAILY 12/08/18 RX: Arformoterol Tartrate [Brovana] 15 mcg IH BID 12/08/18 RX: Aspirin Chewable [Aspirin Chewable*] 81 mg PO DAILY 12/08/18 RX: Atorvastatin Calcium 10 mg PO BEDTIME 12/08/18 RX: Ferrous Sulfate [Ferrous Sulfate*] 325 mg PO DAILY 12/08/18 RX: Furosemide [Lasix*] 20 mg PO DAILY 12/08/18 RX: Guaifenesin [Cough Syrup] 10 ml PO Q4HP PRN 12/08/18 RX: Ipratropium/Albuterol Sulfate [Iprat-Albut 0.5-3(2.5) mg/3 ml] 1 dose IH Q6H 12/08/18 RX: LORazepam [Ativan*] 0.5 mg PO DAILY 12/08/18 RX: Levothyroxine Sodium 25 mcg PO DAILY 12/08/18 RX: Spironolactone [Aldactone*] 25 mg PO DAILY 12/08/18 RX: Tiotropium [place] [Spiriva] 18 mcg IH DAILY 12/08/18 RX: Travoprost (Benzalkonium) [Travatan 0.004% Eye Drop] 1 gtt EACH EYE BEDTIME 12/08/18 RX: Arformoterol Tartrate [Brovana] 15 mcg IH BIDRESP #60 vial.neb 12/10/18 RX: predniSONE [Prednisone*] 10 mg PO DAILY #30 tab 12/10/18 Carvedilol [Coreg] 3.125 mg PO BID #60 tab 12/11/18 levoFLOXacin [Levaquin] 500 mg PO DAILY #7 tab 12/11/18 - Past Medical/Surgical History Diabetic: No -: chronic CHF -: PNA -: Hyperlipidemia -: hypothyroidism -: Pneumonia -: CKD III -: Gout -: Lung CA -: Pneumonectomy R -: Hysterectomy - Family History Sister -: Hypertension, Diabetes - Social History Smoking Status: Never smoker Alcohol use: No CD- Drugs: No Caffeine use: No Place of Residence: Home Review of Systems 10-point ROS is otherwise unremarkable Physical Examination - Vital Signs Temperature: 98.2 F Blood Pressure: 117/59 Pulse: 126 Respirations: 40 Pulse Ox (%): 100 - Physical Exam General: Alert, Oriented x3, Mild distress, Other (frail) HEENT: Atraumatic, PERRLA, Mucous membr. moist/pink, EOMI, Sclerae nonicteric Neck: Supple, 2+ carotid pulse no bruit, No LAD, Without JVD or thyroid abnormality Respiratory: Crackles/rales, Other (Tachypneic) Cardiovascular: Irregular heart rate/rhythm Gastrointestinal: Normal bowel sounds, No tenderness Musculoskeletal: No tenderness Integumentary: No rashes Neurological: Normal gait, Normal speech, Normal strength at 5/5 x4 extr, Normal tone, Normal affect Lymphatics: No axilla or inguinal lymphadenopathy - Studies Laboratory Data (last 24 hrs) 02/18/19 13:00: WBC 17.5 H, Hgb 12.2, Hct 34.3 L, Plt Count 225 02/18/19 13:00: Sodium 141, Potassium 4.6, BUN 47 H, Creatinine 1.13, Glucose 119 H Assessment and Plan - Problems (Diagnosis) (1) Acute respiratory distress Onset Date: 12/09/18 Current Visit: No Status: Acute (2) H/O pneumonectomy Current Visit: No Status: Acute (3) Hypercapnic respiratory failure Onset Date: 12/09/18 Current Visit: No Status: Acute (4) Pneumonia Current Visit: No Status: Acute Qualifiers: Pneumonia type: due to unspecified organism Laterality: left Lung location: unspecified part of lung Qualified Code(s): J18.9 - Pneumonia, unspecified organism - Plan Admit and monitor on the floor. Breathing treatments and IV antibiotics for possible infectious pneumonia. Continue steroids, low dose. Continue Bi-pap. Pulmonology consult. Will confirm code status tomorrow. Overall, poor prognosis. - Advance Directives Does patient have a Living Will: No Does patient have a Durable POA for Healthcare: No
[2019-02-18 18:46] LABS: Urine Bacteria <20 /HPF (<20); Urine Culture Reflex Order NOT NEEDED; Urine RBC <5 /HPF (NONE SEEN)
[2019-02-18] MEDS ORDERED: Levofloxacin500mg IV 500 MG/100 ML BAG IV SCH (19:00)
[2019-02-18] MEDS: METHYLPREDNISOLONE 40 MG INJ IV SCH (19:28)
[2019-02-18] MEDS: IPRATROPIUM BROM 0.5MG/2.5ML NEB SCH ×2 (20:00)
[2019-02-18] MEDS: LEVALBUTEROL 1.25 MG/3 ML NEB NEB SCH ×2 (20:00)
[2019-02-18] MEDS ORDERED: NA CHLORIDE 0.9% 1,000 ML IV SCH (22:00)
[2019-02-18] MEDS ORDERED: [UNRECOGNIZED DRUG - OTHER] IH PRN (23:22)
[2019-02-18] MEDS ORDERED: IPRATROPIUM IH PRN (23:22)
[2019-02-18] MEDS ORDERED: ALBUTEROL SULFATE IH PRN (23:22)
[2019-02-18] MEDS ORDERED: NA CHLORIDE 0.9% 250 ML IV ONE (23:27)
[2019-02-19] MEDS: METHYLPREDNISOLONE 40 MG INJ IV SCH ×2 (00:03→09:00)
[2019-02-19] MEDS ORDERED: METOPROLOL TAR 50 MG TAB PO ONE (00:23)
[2019-02-19] MEDS: IPRATROPIUM BROM 0.5MG/2.5ML NEB SCH ×4 (02:00→20:00)
[2019-02-19] MEDS: LEVALBUTEROL 1.25 MG/3 ML NEB NEB SCH ×4 (02:00→20:00)
[2019-02-19 06:47] LABS: Absolute Lymphocytes (CBC) 0.5 K/uL (0.7-4.9); Absolute Monocytes 0.4 K/uL (0.1-1.3); Absolute Neutrophil 18.8 K/uL (1.8-8.0); Basophils % 0.1 % (0-1.3); Lymphocytes % 2.6 % (15.3-44.8); MPV 8.8 fL (7.6-11.3); Monocytes % 1.8 % (3.3-12.3); RBC Red Blood Cell Count 2.72 M/uL (3.86-4.86)
[2019-02-19 07:02] LABS: Magnesium 2.1 mg/dL (1.8-2.4); Phosphorus 3.5 mg/dL (2.5-4.9)
[2019-02-19 07:06] LABS: Albumin 2.4 g/dL (3.4-5.0); Bilirubin Total 0.4 mg/dL (0.2-1.0); Potassium 5.3 mmol/L (3.5-5.1); Protein, Total 5.6 g/dL (6.4-8.2)
[2019-02-19] MEDS ORDERED: FUROSEMIDE 20 MG TABLET PO SCH (09:00)
[2019-02-19] MEDS ORDERED: TIOTROPIUM 5 SPRAYS/INHALER IH SCH (09:00)
--- NOTE | 2019-02-19 09:18 | P.CNS ---
Date of Consult: 02/19/19 Chief Complaint: Acute Respiratory distress History of Present Illness: Patient is 83 years of age admitted with respiratory distress history obtained from her son and the patient she has been in a assisted for rehab problems started in November with a respiratory tract infection congestive heart failure. 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 [place] she has had a right-sided pneumonectomy for lung cancer has never smoked as not have any oxygen at home patient's white count is elevated patient is never smoked does take bronchodilators at home Allergies milk Adverse Reaction (Verified 02/18/19 17:35) Nausea/Vomiting Home Medications: Alendronate Sodium 70 mg PO EVERY 7TH DAY 12/08/18 Allopurinol 200 mg PO DAILY 12/08/18 Aspirin Chewable [Aspirin Chewable*] 81 mg PO DAILY 12/08/18 Atorvastatin Calcium 10 mg PO BEDTIME 12/08/18 Ferrous Sulfate [Ferrous Sulfate*] 325 mg PO DAILY 12/08/18 Furosemide [Lasix*] 20 mg PO DAILY 12/08/18 Guaifenesin [Cough Syrup] 10 ml PO Q4HP PRN 12/08/18 Ipratropium/Albuterol Sulfate [Iprat-Albut 0.5-3(2.5) mg/3 ml] 1 dose IH Q6H PRN 12/08/18 Levothyroxine Sodium 25 mcg PO DAILY 12/08/18 Spironolactone [Aldactone*] 25 mg PO DAILY 12/08/18 Tiotropium [place] [Spiriva] 18 mcg IH DAILY 12/08/18 predniSONE [Prednisone*] 10 mg PO DAILY #30 tab 12/10/18 Carvedilol [Coreg] 3.125 mg PO BID #60 tab 12/11/18 levoFLOXacin [Levaquin] 500 mg PO DAILY #7 tab 12/11/18 Arginine/Ascorbate Sod/Joanne AC [Arginaid Powder] 1 packet PO DAILY 02/18/19 Ascorbic Acid [Vitamin C] 500 mg PO DAILY 02/18/19 Docusate Sodium 100 mg PO BEDTIME 02/18/19 Ergocalciferol (Vitamin D2) [Vitamin D2] 1 cap PO SEECOM 02/18/19 Mag Hydroxide 8% [Milk Of Magnesia*] 30 ml PO BEDTIME 02/18/19 Zinc Sulfate [Zinc Sulfate*] 220 mg PO DAILY 02/18/19 - Past Medical/Surgical History Diabetic: No -: chronic CHF -: PNA -: Hyperlipidemia -: hypothyroidism -: Pneumonia -: CKD III -: Gout -: Lung CA -: Pneumonectomy R -: Hysterectomy - Family History Sister Medical History: Hypertension, Diabetes - Social History Alcohol use: No CD- Drugs: No Caffeine use: No Place of Residence: Home Review of Systems General: Weakness Respiratory: Cough, Shortness of Breath Physical Examination Temp Pulse Resp BP Pulse Ox 97.2 F 88 24 H 147/78 H 100 02/19/19 08:00 02/19/19 08:00 02/19/19 08:00 02/19/19 08:00 02/19/19 08:00 General: Alert, Moderate distress Neck: Supple Respiratory: Expiratory wheezes (On the left side the right side is diminished due to pneumonectomy) Cardiovascular: No edema, Regular rate/rhythm Gastrointestinal: Normal bowel sounds, Soft and benign Musculoskeletal: No clubbing Integumentary: No rashes, No breakdown Laboratory Data (last 24 hrs) 02/18/19 13:00: WBC 17.5 H, Hgb 12.2, Hct 34.3 L, Plt Count 225 02/18/19 13:00: Sodium 141, Potassium 4.6, BUN 47 H, Creatinine 1.13, Glucose 119 H - Problems (1) Acute respiratory distress Onset Date: 12/09/18 Current Visit: No Status: Acute Plan: Patient is 83 years of age admitted with acute respiratory distress she has been having problems since November became sick in the last couple of days in the assisted rehab unit according to the son was doing relatively well. 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
[2019-02-19] MEDS: FERROUS SULFATE 325 MG TAB PO SCH (09:50)
[2019-02-19] MEDS: ZINC SULFATE 220 MG CAP PO SCH (09:50)
[2019-02-19] MEDS: CARVEDILOL 3.125 MG TAB PO SCH ×2 (09:50→20:21)
[2019-02-19] MEDS: ASCORBIC ACID 500 MG TABLET PO SCH (09:50)
[2019-02-19] MEDS: SPIRONOLACTONE 25 MG TABLET PO SCH (09:50)
[2019-02-19] MEDS: ALLOPURINOL 100 MG TAB PO SCH (09:51)
[2019-02-19] MEDS: ASPIRIN 81 MG CHEWABLE TABLET PO SCH (09:51)
[2019-02-19] MEDS: LEVOTHYROXINE SOD 0.025 MG TAB PO SCH (09:51)
[2019-02-19] MEDS: predniSONE 10 MG TAB PO SCH ×2 (09:59→20:22)
[2019-02-19] MEDS: FUROSEMIDE 40 MG/4 ML VIAL IV SCH (09:59)
--- NOTE | 2019-02-19 11:17 | RAD REPORT ---
EXAM DESCRIPTION: CT - Thorax Wo Con CLINICAL HISTORY: Chest pain Possible sepsis COMPARISON: No comparisons FINDINGS: Changes of a right pneumonectomy are noted with extensive volume loss seen. Shift of the c ardiomediastinal structures to the right is present. Moderate airspace opacity is present in the posterior left lung base likely representing pneumonia/as piration. Several pulmonary nodules are present in the left lung of varying sizes and noncalcified th e largest in the medial hyperaerated left upper lobe measuring 9 x 7 mm (image 19/53). Several gallstones are seen in the gallbladder. No rib fracture evident. All CT scans are performed using dose optimization technique as appropriate and may include automated exposure control or mA/KV adjustment according to patient size. IMPRESSION: Moderate airspace opacity is seen in the posterior left base suspicious for pneumonia/as piration. Right pneumonectomy. Several noncalcified pulmonary nodules are seen scattered throughout the hyper-a erated left lung. Given the history of prior lung carcinoma, metastatic disease is a possibility alth ough full assessment of the etiology of the nodules is not possible given the small size. Advise foll owup CT chest assessment in 3 months.
[2019-02-19] MEDS: Meropenem 500 MG in NA CHLORIDE 0.9% 100 ML IV SCH ×2 (11:19→16:58)
[2019-02-19] MEDS: DOXYCYCLINE 100 MG CAP PO SCH ×2 (11:20→20:21)
[2019-02-19] MEDS: DOCUSATE NA 100 MG CAP PO SCH (16:58)
[2019-02-19] MEDS ORDERED: Meropenem 500 MG VIAL IV SCH (17:00)
[2019-02-19] MEDS: MAGNESIUM HYDROXIDE 8% 30 ML PO SCH (20:23)
[2019-02-19] MEDS ORDERED: ATORVASTATIN 10 MG TAB PO SCH (21:00)
[2019-02-20] MEDS: LEVALBUTEROL 1.25 MG/3 ML NEB NEB SCH ×4 (02:00→20:00)
[2019-02-20] MEDS: IPRATROPIUM BROM 0.5MG/2.5ML NEB SCH ×4 (02:00→20:00)
[2019-02-20] MEDS: Meropenem 500 MG in NA CHLORIDE 0.9% 100 ML IV SCH ×2 (05:21→17:15)
[2019-02-20 06:36] LABS: Absolute Lymphocytes (CBC) 0.4 K/uL (0.7-4.9); Absolute Monocytes 0.4 K/uL (0.1-1.3); Absolute Neutrophil 12.7 K/uL (1.8-8.0); Hematocrit 27.7 % (36.0-45.0); Lymphocytes % 2.8 % (15.3-44.8); MPV 9.2 fL (7.6-11.3); RBC Red Blood Cell Count 2.44 M/uL (3.86-4.86)
[2019-02-20 06:39] LABS: Albumin 2.3 g/dL (3.4-5.0); Bilirubin Total 0.4 mg/dL (0.2-1.0); Potassium 5.4 mmol/L (3.5-5.1); Protein, Total 5.5 g/dL (6.4-8.2)
[2019-02-20] MEDS: SPIRONOLACTONE 25 MG TABLET PO SCH (09:00)
[2019-02-20] MEDS: ALLOPURINOL 100 MG TAB PO SCH (09:13)
[2019-02-20] MEDS: LEVOTHYROXINE SOD 0.025 MG TAB PO SCH (09:14)
[2019-02-20] MEDS: ASCORBIC ACID 500 MG TABLET PO SCH (09:14)
[2019-02-20] MEDS: ASPIRIN 81 MG CHEWABLE TABLET PO SCH (09:14)
[2019-02-20] MEDS: predniSONE 10 MG TAB PO SCH ×2 (09:14→23:29)
[2019-02-20] MEDS: CARVEDILOL 3.125 MG TAB PO SCH ×2 (09:14→23:29)
[2019-02-20] MEDS: ZINC SULFATE 220 MG CAP PO SCH (09:14)
[2019-02-20] MEDS: DOXYCYCLINE 100 MG CAP PO SCH ×2 (09:14→23:29)
[2019-02-20] MEDS: FERROUS SULFATE 325 MG TAB PO SCH (09:15)
[2019-02-20] MEDS: FUROSEMIDE 40 MG/4 ML VIAL IV SCH (09:15)
--- NOTE | 2019-02-20 10:51 | P.PN ---
Subjective Date of Service: 02/20/19 Chief Complaint: Left lower lobe pneumonia Patient is not doing well no change still has cough congestion shortness of breath CT scan shows consolidation in the left lower lobe Review of Systems General: Weakness Respiratory: Cough, Shortness of Breath Physical Examination - Vital Signs Temperature: 97.2 F Blood Pressure: 153/76 Pulse: 98 Respirations: 22 Pulse Ox (%): 99 - Physical Exam General: Alert, Oriented x3 HEENT: Atraumatic Respiratory: Crackles/rales (Crackles on the left side) Cardiovascular: No edema Gastrointestinal: Normal bowel sounds, Soft and benign Assessment & Plan - Problems (Diagnosis) (1) Left lower lobe pneumonia Current Visit: Yes Status: Acute Plan: Patient is 83 years of age is still complaining of cough congestion CT scan shows consolidation in the left lower lobe white count has declined continue with IV antibiotics sputum cultures so far pending urine shows E. coli Dc spironolactone patient is hyperkalemia could change to p.o. Lasix she needs bedside physical therapy patient is very weak continue with p.o. Lasix patient refuses BiPAP
[2019-02-20] MEDS: ACETYLCYST 20% 4 ML VIAL IH SCH ×2 (13:45→20:00)
--- NOTE | 2019-02-20 17:06 | P.PN ---
Subjective Date of Service: 02/19/19 Chief Complaint: Left lower lobe pneumonia Subjective: Improving Patient seen and examined at bedside. Chart reviewed and case discussed with nursing staff and son at bedside. Breathing improved. More alert. She refuses her bipap Review of Systems 10-point ROS is otherwise unremarkable Physical Examination - Vital Signs Temperature: 97.7 F Blood Pressure: 142/74 Pulse: 97 Respirations: 32 Pulse Ox (%): 100 - Physical Exam General: Alert, In no apparent distress, Oriented x3, Other (frail) HEENT: Atraumatic, PERRLA, EOMI Neck: Supple, JVD not distended Respiratory: Dull, Rhonchi/gurgles Cardiovascular: Regular rate/rhythm, Normal S1 S2 Gastrointestinal: Normal bowel sounds, No tenderness Musculoskeletal: No tenderness Integumentary: No rashes Neurological: Normal speech, Normal tone, Normal affect Lymphatics: No axilla or inguinal lymphadenopathy Assessment And Plan - Current Problems (Diagnosis) (1) Acute respiratory distress Onset Date: 12/09/18 Current Visit: No Status: Resolved (2) H/O pneumonectomy Current Visit: No Status: Acute (3) Hypercapnic respiratory failure Onset Date: 12/09/18 Current Visit: No Status: Acute (4) Pneumonia Current Visit: No Status: Acute Qualifiers: Pneumonia type: due to unspecified organism Laterality: left Lung location: unspecified part of lung Qualified Code(s): J18.9 - Pneumonia, unspecified organism - Plan Consitnue to monitor on the floor. Breathing treatments and IV antibiotics for possible infectious pneumonia. Continue steroids, low dose. Continue Bi-pap as needed. Pulmonology consult. Recommendations appreciated. Overall, poor prognosis.
--- NOTE | 2019-02-20 17:09 | P.PN ---
Subjective Date of Service: 02/20/19 Chief Complaint: Left lower lobe pneumonia Subjective: Improving Patient seen and examined at bedside. Chart reviewed and case discussed with nursing staff and son at bedside. Breathing improved. More alert. She refuses her bipap though has not needed it overnight. Review of Systems 10-point ROS is otherwise unremarkable Physical Examination - Vital Signs Temperature: 97.7 F Blood Pressure: 142/74 Pulse: 97 Respirations: 32 Pulse Ox (%): 100 - Physical Exam General: Alert, In no apparent distress, Oriented x3, Cachectic Respiratory: Diminished, Crackles/rales Cardiovascular: No edema, Regular rate/rhythm, Normal S1 S2 Assessment And Plan - Current Problems (Diagnosis) (1) Acute respiratory distress Onset Date: 12/09/18 Current Visit: No Status: Resolved (2) H/O pneumonectomy Current Visit: No Status: Acute (3) Hypercapnic respiratory failure Onset Date: 12/09/18 Current Visit: No Status: Acute (4) Pneumonia Current Visit: No Status: Acute Qualifiers: Pneumonia type: due to unspecified organism Laterality: left Lung location: unspecified part of lung Qualified Code(s): J18.9 - Pneumonia, unspecified organism (5) UTI due to extended-spectrum beta lactamase (ESBL) producing Escherichia coli Current Visit: Yes Status: Acute - Plan Consitnue to monitor on the floor. Breathing treatments and IV antibiotics for possible infectious pneumonia. Continue steroids, low dose. Continue Bi-pap as needed. Pulmonology consult. Recommendations appreciated. 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 Overall, poor prognosis. Discharge Plan: Prison
--- NOTE | 2019-02-20 18:15 | RAD REPORT ---
EXAM DESCRIPTION: RAD - Chest Single View - 02/20/2019 5:30 pm CLINICAL HISTORY: Right upper extremity PICC line placement. COMPARISON: CT chest February 19 TECHNIQUE: AP portable chest image was obtained 1704 hours . FINDINGS: Portable chest was obtained following placement of a right upper extremity PICC line. The PICC line shows a tortuous course but is appropriately positioned. Tip is in the mid SVC. The patient has right hemithorax volume loss in right shift of the mediastinum distorts the typical course of th e vasculature. No abnormal bend or kink seen in the line. No pneumothorax. IMPRESSION: Right upper extremity PICC line in good position. Tip is in the mid SVC. Typical course of the catheter is distorted due to the right hemithorax volume loss and mediastinal s hift. When correlated with the CT chest examination, the path of the PICC line is as expected.
[2019-02-20] MEDS: DOCUSATE NA 100 MG CAP PO SCH (23:29)
[2019-02-20] MEDS: MAGNESIUM HYDROXIDE 8% 30 ML PO SCH (23:29)
[2019-02-21] MEDS: LEVALBUTEROL 1.25 MG/3 ML NEB NEB SCH ×4 (02:00→20:00)
[2019-02-21] MEDS: ACETYLCYST 20% 4 ML VIAL IH SCH ×4 (02:00→20:00)
[2019-02-21] MEDS: IPRATROPIUM BROM 0.5MG/2.5ML NEB SCH ×4 (02:00→20:00)
[2019-02-21] MEDS: Meropenem 500 MG in NA CHLORIDE 0.9% 100 ML IV SCH ×2 (05:36→18:11)
[2019-02-21 06:20] LABS: Absolute Lymphocytes (CBC) 0.3 K/uL (0.7-4.9); Absolute Monocytes 0.2 K/uL (0.1-1.3); Basophils % 0.1 % (0-1.3); Hematocrit 28.9 % (36.0-45.0); Lymphocytes % 3.2 % (15.3-44.8); RBC Red Blood Cell Count 2.66 M/uL (3.86-4.86)
[2019-02-21 06:30] LABS: Albumin 2.4 g/dL (3.4-5.0); Bilirubin Total 0.3 mg/dL (0.2-1.0); Protein, Total 5.5 g/dL (6.4-8.2)
[2019-02-21 06:41] LABS: Potassium 5.8 mmol/L (3.5-5.1)
[2019-02-21] MEDS ORDERED: SOD POLYSTYREN SUL 15 GM/60 ML UCUP PO ONE (06:57)
--- NOTE | 2019-02-21 08:37 | P.PN ---
Subjective Date of Service: 02/21/19 Chief Complaint: Left lower lobe pneumonia Patient is improving less congested has a PICC line Review of Systems General: Weakness Respiratory: Cough, Shortness of Breath Physical Examination - Vital Signs Temperature: 97.1 F Blood Pressure: 163/84 Pulse: 96 Respirations: 18 Pulse Ox (%): 100 - Physical Exam General: Alert, Oriented x3 Respiratory: Clear to auscultation bilaterally, Diminished Cardiovascular: No edema, Regular rate/rhythm Assessment & Plan - Problems (Diagnosis) (1) Left lower lobe pneumonia Current Visit: Yes Status: Acute Plan: Patient admitted with a left lower lobe pneumonia patient has E. coli sensitive to meropenem patient has a PICC line continue with meropenem for 2 weeks in addition to p.o. doxycycline for Mr SA coverage patient is hyperkalemia she got some Kayexalate spironolactone Dc yesterday kidney function improving blood pressure is little elevated stable for discharge
[2019-02-21] MEDS ORDERED: DRISDOL (VITAMIN D=ERGOCALCIFEROL) 50000 UNIT CAP PO SCH (09:00)
[2019-02-21] MEDS: FUROSEMIDE 40 MG TABLET PO SCH (10:03)
[2019-02-21] MEDS: CARVEDILOL 3.125 MG TAB PO SCH ×2 (10:04→21:32)
[2019-02-21] MEDS: ALLOPURINOL 100 MG TAB PO SCH (10:04)
[2019-02-21] MEDS: DOXYCYCLINE 100 MG CAP PO SCH ×2 (10:04→21:32)
[2019-02-21] MEDS: FERROUS SULFATE 325 MG TAB PO SCH (10:04)
[2019-02-21] MEDS: ASPIRIN 81 MG CHEWABLE TABLET PO SCH (10:04)
[2019-02-21] MEDS: ASCORBIC ACID 500 MG TABLET PO SCH (10:04)
[2019-02-21] MEDS: ZINC SULFATE 220 MG CAP PO SCH (10:04)
[2019-02-21] MEDS: LEVOTHYROXINE SOD 0.025 MG TAB PO SCH (10:04)
[2019-02-21] MEDS: predniSONE 10 MG TAB PO SCH ×2 (10:11→21:32)
--- NOTE | 2019-02-21 12:36 | RAD REPORT ---
EXAM DESCRIPTION: XR Chest, 1 View CLINICAL HISTORY: The patient is 83 years old and is Female; SOB TECHNIQUE: Frontal view of the chest. COMPARISON: Chest radiograph performed the same day at 1208 hours. FINDINGS: LUNGS: Complete opacification of the right hemithorax is present with associated pleural calcification. This is unchanged from prior exam and from prior report of December 08, 2018. Findings may be secondary to prior pneumonectomy. Mild interstitial opacity within the left lung is present . There is no lobar consolidation. PLEURAL SPACE: Unremarkable. No pneumothorax. HEART: The cardiac silhouette is obscured. MEDIASTINUM: The mediastinum is shifted to the right along with the deviation of trachea. BONES/JOINTS: There are degenerative changes of the spine. IMPRESSION: 1. Mild diffuse interstitial opacities which may be secondary to an edematous process. 2. Changes of the right hemithorax to suggest prior pneumonectomy. Electronically signed by: Maddison Young MD 02/18/2019 11:07 PM CDT Due to temporary technical issues with the PACS/Fluency reporting system, reports are being signed by the in house radiologist as a courtesy to ensure prompt reporting. The interpreting radiologist is f ully responsible for the content of the report.
--- NOTE | 2019-02-21 19:24 | P.PN ---
Subjective Date of Service: 02/21/19 Chief Complaint: Left lower lobe pneumonia Subjective: Improving Patient seen and examined at bedside. Chart reviewed and case discussed with nursing staff and son at bedside. Breathing improved. More alert. She refuses her bipap though has not needed it overnight. Review of Systems 10-point ROS is otherwise unremarkable Physical Examination - Vital Signs Temperature: 97.2 F Blood Pressure: 171/104 Pulse: 108 Respirations: 20 Pulse Ox (%): 100 - Physical Exam General: Alert, In no apparent distress, Oriented x3 Respiratory: Diminished, Crackles/rales Cardiovascular: Regular rate/rhythm, Normal S1 S2 Gastrointestinal: Normal bowel sounds Integumentary: Pressure ulcer Assessment And Plan - Current Problems (Diagnosis) (1) Acute respiratory distress Onset Date: 12/09/18 Current Visit: No Status: Resolved (2) H/O pneumonectomy Current Visit: No Status: Acute (3) Hypercapnic respiratory failure Onset Date: 12/09/18 Current Visit: No Status: Acute (4) Pneumonia Current Visit: No Status: Acute Qualifiers: Pneumonia type: due to unspecified organism Laterality: left Lung location: unspecified part of lung Qualified Code(s): J18.9 - Pneumonia, unspecified organism (5) UTI due to extended-spectrum beta lactamase (ESBL) producing Escherichia coli Current Visit: Yes Status: Acute (6) Pressure ulcer Current Visit: Yes Status: Acute Qualifiers: Pressure injury location: buttock Pressure injury stage: stage 2 Laterality: left Qualified Code(s): L89.322 - Pressure ulcer of left buttock, stage 2 (7) Pressure ulcer Current Visit: Yes Status: Acute Qualifiers: Pressure injury location: sacral region Pressure injury stage: stage 1 Qualified Code(s): L89.151 - Pressure ulcer of sacral region, stage 1 (8) Hyperkalemia Current Visit: Yes Status: Acute - Plan Consitnue to monitor on the floor. Breathing treatments and oral doxy for pneumonia. Continue steroids, low dose. Continue Bi-pap as needed. Pulmonology consult. Recommendations appreciated. PICC line in place. Will need IV meropenem for 2 weeks Continue wound care for pressure ulcer on buttock and coccyx. Kayexalate given for hyperkalemia. Recheck Overall, poor prognosis. Disposition: Possible discharge back to [facility] in the next 24- 48 hr. Discharge Plan: Snf Plan to discharge in: 24 Hours
[2019-02-21] MEDS: DOCUSATE NA 100 MG CAP PO SCH (21:32)
[2019-02-21] MEDS: MAGNESIUM HYDROXIDE 8% 30 ML PO SCH (21:34)
[2019-02-21] MEDS: ENSURE ENLIVE 237 ML CAN PO SCH (21:34)
[2019-02-21] MEDS: JUVEN PACKET PO SCH (21:36)
[2019-02-22] MEDS: IPRATROPIUM BROM 0.5MG/2.5ML NEB SCH ×3 (01:33→14:30)
[2019-02-22] MEDS: LEVALBUTEROL 1.25 MG/3 ML NEB NEB SCH ×3 (01:33→14:30)
[2019-02-22] MEDS: ACETYLCYST 20% 4 ML VIAL IH SCH ×3 (01:33→14:30)
[2019-02-22] MEDS: Meropenem 500 MG in NA CHLORIDE 0.9% 100 ML IV SCH ×2 (05:51→17:15)
[2019-02-22] MEDS ORDERED: LEVOTHYROXINE SOD 0.025 MG TAB PO SCH (06:00)
[2019-02-22] MEDS: ENSURE ENLIVE 237 ML CAN PO SCH (09:00)
[2019-02-22] MEDS: ZINC SULFATE 220 MG CAP PO SCH (10:17)
[2019-02-22] MEDS: ASPIRIN 81 MG CHEWABLE TABLET PO SCH (10:18)
[2019-02-22] MEDS: FERROUS SULFATE 325 MG TAB PO SCH (10:18)
[2019-02-22] MEDS: predniSONE 10 MG TAB PO SCH (10:18)
[2019-02-22] MEDS: FUROSEMIDE 40 MG TABLET PO SCH (10:18)
[2019-02-22] MEDS: DOXYCYCLINE 100 MG CAP PO SCH (10:18)
[2019-02-22] MEDS: ASCORBIC ACID 500 MG TABLET PO SCH (10:19)
[2019-02-22] MEDS: JUVEN PACKET PO SCH (10:19)
[2019-02-22] MEDS: CARVEDILOL 3.125 MG TAB PO SCH (10:19)
[2019-02-22] MEDS: ALLOPURINOL 100 MG TAB PO SCH (10:30)
[2019-02-22 15:00] VITALS: O2SAT 97
[2019-02-22 16:16] VITALS: BP 161/78; TEMP 97.9
--- NOTE | 2019-02-23 06:16 | DS ---
Date of Discharge: 02/22/2019 Glass Cylinder Flanger: Dr. Lombardo with Pulmonology. Admitting Diagnoses: 1. Acute respiratory distress. 2. Hypercapnic respiratory failure. 3. Pneumonia, left lobe. Discharge Diagnoses: 1. Acute respiratory distress. 2. History of pneumonectomy. 3. Hypercapnic respiratory failure. 4. Pneumonia, left lobe. 5. Urinary tract infection due to extended-spectrum beta-lactamase Escherichia coli. 6. Pressure ulcer, stage II of the left buttock as well as stage I of the sacrum. 7. Hyperkalemia, corrected secondary to Aldactone. 8. Failure to thrive, BMI 15. Hospital Course: The patient is an 83-year-old female from [facility], currently there for physical therapy and rehab, comes in with acute respiratory distress. The patient has a history of right pneumonectomy for cancer, unclear which type of cancer this is. The patient was started on IV steroids, breathing treatments, and supplemental oxygen. The patient did require BiPAP and Pulmonology was consulted. ABG showed pCO2 of 28, bicarb of 19. White count was elevated at 17,000, did improve to 10. The patient had some mild hyperkalemia, which was corrected. Her Aldactone was discontinued. The patient does have elevated lactate level initially 2.3, then went up to 4.3 , however, with treatment, lactate normalized. The patient's blood cultures did not show any growth. The patient did have a UTI and urine cultures grew out ESBL Escherichia coli. The patient was switched over to meropenem and doxycycline. Sputum cultures grew out normal quantity of respiratory arnie. Her wound from the buttock did show mixed skin organisms. However, the patient was being covered for MRSA with doxycycline, regardless the patient was then cleared for discharge. She was accepted back to [place] for long-term IV antibiotics and to continue PT and OT. Medications: As per medication reconciliation list. Finish off course of doxycycline and meropenem. The patient was also added on iron supplements. Followup: The patient will follow up with primary care physician in 2-3 days. Follow up with video game animator, Dr. Lombardo in 2 weeks. Return to ER for worsening condition. Diet: Low-sodium, fluid-restricted diet. Activity: Fall precautions. Physical Examination: General: Awake, alert, oriented, elderly female, frail, BMI 15. CV: S1, S2. Respiratory: Moving air well bilaterally. Abdomen: Soft, nontender, nondistended. Positive bowel sounds. Extremities: No clubbing, cyanosis, or edema. Neurologic: Nonfocal. Code status: Full Total time spent discharging the patient was 35 minutes. JAVIER Voice ID: [id number] Report ID: [id number] MTDD
== END 2019-02-22 18:03 | DRG 193 ==
LOC: ER 11:39 → ERHOLD 15:20 → 4TH 16:32
PROVIDERS: ADMIT Family Medicine; ATTEND Family Medicine
DX: J18.9 Pneumonia, unspecified organism (principal); J96.02 Acute respiratory failure with hypercapnia; N39.0 Urinary tract infection, site not specified; Z68.1 Body mass index [BMI] 19.9 or less, adult; B96.20 Unspecified Escherichia coli [E. coli] as the cause of diseases classified elsewhere; L89.322 Pressure ulcer of left buttock, stage 2; L89.151 Pressure ulcer of sacral region, stage 1; E87.5 Hyperkalemia; R62.7 Adult failure to thrive; N18.3 Chronic kidney disease, stage 3 (moderate); E78.5 Hyperlipidemia, unspecified; E03.9 Hypothyroidism, unspecified; M10.9 Gout, unspecified; Z90.2 Acquired absence of lung [part of]
CPT/HCPCS: 36415; 71045; 71250; 80048; 80053; 81003; 81015; 82805; 83605; 83735; 83880; 84100; 84132; 84145; 84484; 85025; 87040; 87070; 87077; 87086; 87088; 87186; 87205; 93005; 94660; 94760; 96361; 96374; 96375; 97162; 99285; J1940; J2920; J2930; J7030; J7512

== ENCOUNTER 2019-03-20 05:44 | Inpatient (IN) | payer OTHER, BC ==
--- NOTE | 2019-03-20 06:31 | EDPHYS ---
Physician Documentation [facility] Name: Monica Barragan Age: 83 yrs Sex: Female : 1935 Arrival Date: 03/20/2019 Time: 05:49 Bed 6 Private MD: ED Physician Jose Currie HPI: 03/20 05:55 This 83 yrs old Female presents to ER via EMS with complaints of Respiratory teena Distress. 05:55 The patient has shortness of breath at rest, with light activity. Onset: The teena symptoms/episode began/occurred this morning, today. Duration: The symptoms are continuous, and are steadily getting worse. The patient's shortness of breath has no apparent modifying factors. The patient presents to the emergency department with wheezing, Current therapy: albuterol nebs, the patient was reported to have audible wheezing, chest congestion, productive cough, trouble breathing. Onset: The symptoms/episode began/occurred 2 day(s) ago. Modifying factors: The symptoms are alleviated by nothing, the symptoms are aggravated by nothing. The patient or guardian reports airway noise, cough, described as moderate, difficulty breathing. 06:00 Modifying factors: The symptoms are alleviated by remaining still, the symptoms are teena aggravated by activity, lying flat, talking. Historical: - Allergies: 06:07 No Known Allergies; aa1 - Home Meds: 06:07 alendronate 70 mg Oral tab 1 tab once wkly [Active]; allopurinol 100 mg Oral tab 2 tabs aa1 once daily [Active]; aspirin 81 mg Oral chew 1 tab once daily [Active]; Arginaid 4.5 gram-156 mg/9.2 gram oral pwpk [Active]; ascorbic acid (vitamin C) 500 mg tab daily [Active]; atorvastatin 10 mg Oral tab 1 tab once daily [Active]; carvedilol 3.125 mg Oral tab 1 tab 2 times per day [Active]; ergocalciferol (vitamin D2) 50,000 unit oral cap 1 cap once wkly [Active]; ferrous sulfate 325 mg (65 mg iron) Oral tab daily [Active]; furosemide 20 mg Oral tab 1 tab once daily [Active]; guaifenesin 100 mg/5 mL Oral liqd 10 mL every 4 hours [Active]; ipratropium-albuterol 0.5 mg-3 mg(2.5 mg base)/3 mL Inhl nebu 3 mL 4 times per day [Active]; levothyroxine 25 mcg tab 1 tab once daily [Active]; prednisone 10 mg Oral tab 1 tab [Active]; spironolactone 25 mg Oral tab 1 tab once daily [Active]; Trelegy Ellipta 100-62.5-25 mcg/inh 1 puff daily [Active]; zinc sulfate 220 mg Oral tab daily [Active]; - PMHx: 06:07 CHF; Hyperlipidemia; Hypertension; Hypothyroidism; Pneumonia; COPD; aa1 - PSHx: 06:07 R pnemonectomy; aa1 - Immunization history:: Adult Immunizations unknown. - Social history:: Smoking status: Patient/guardian denies using tobacco. - Family history:: not pertinent. - Ebola Screening: : No symptoms or risks identified at this time. ROS: 05:55 Constitutional: Negative for fever, chills, and weight loss, Eyes: Negative for injury, teena pain, redness, and discharge, ENT: Negative for injury, pain, and discharge, Neck: Negative for injury, pain, and swelling, Cardiovascular: Negative for chest pain, palpitations, and edema, Abdomen/GI: Negative for abdominal pain, nausea, vomiting, diarrhea, and constipation, Back: Negative for injury and pain, : Negative for injury, bleeding, discharge, and swelling, MS/Extremity: Negative for injury and deformity. 05:55 Respiratory: Positive for cough, shortness of breath, wheezing, expiratory. 05:55 Abdomen/GI: Positive for abdominal pain, nausea, of the umbilical area, right upper quadrant, left upper quadrant, right lower quadrant and left lower quadrant. 05:55 Back: Negative for 06:00 Respiratory: Positive for dyspnea on exertion, orthopnea. teena Exam: 05:55 Constitutional: This is a well developed, well nourished patient who is awake, alert, teena and in no acute distress. Head/Face: Normocephalic, atraumatic. Eyes: Pupils equal round and reactive to light, extra-ocular motions intact. Lids and lashes normal. Conjunctiva and sclera are non-icteric and not injected. Cornea within normal limits. Periorbital areas with no swelling, redness, or edema. ENT: Nares patent. No nasal discharge, no septal abnormalities noted. Tympanic membranes are normal and external auditory canals are clear. Oropharynx with no redness, swelling, or masses, exudates, or evidence of obstruction, uvula midline. Mucous membranes moist. Neck: Trachea midline, no thyromegaly or masses palpated, and no cervical lymphadenopathy. Supple, full range of motion without nuchal rigidity, or vertebral point tenderness. No Meningismus. Chest/axilla: Normal chest wall appearance and motion. Nontender with no deformity. No lesions are appreciated. Cardiovascular: Regular rate and rhythm with a normal S1 and S2. No gallops, murmurs, or rubs. Normal PMI, no JVD. No pulse deficits. Abdomen/GI: Soft, non-tender, with normal bowel sounds. No distension or tympany. No guarding or rebound. No evidence of tenderness throughout. Back: No spinal tenderness. No costovertebral tenderness. Full range of motion. Female : Normal external genitalia. Skin: Warm, dry with normal turgor. Normal color with no rashes, no lesions, and no evidence of cellulitis. MS/ Extremity: Pulses equal, no cyanosis. Neurovascular intact. Full, normal range of motion. Neuro: Awake and alert, GCS 15, oriented to person, place, time, and situation. Cranial nerves II-XII grossly intact. Motor strength 5/5 in all extremities. Sensory grossly intact. Cerebellar exam normal. Normal gait. Psych: Awake, alert, with orientation to person, place and time. Behavior, mood, and affect are within normal limits. 05:55 Respiratory: moderate respiratory distress is noted, Respirations: labored breathing, that is moderate, Breath sounds: decreased breath sounds, rhonchi, + upper airway congestion. wheezing: Vital Signs: 05:49 BP 173 / 93; Pulse 150; Resp 44; Temp 98.3; Pulse Ox 98% on Nebulizer Mask; Weight aa1 36.29 kg; Height 5 ft. 3 in. (160.02 cm); Pain 0/10; 06:55 BP 143 / 85; Pulse 147; Resp 38; Pulse Ox 98% on BiPAP; ak1 07:03 BP 140 / 80; Pulse 114; Pulse Ox 100% on BiPAP; ak1 07:48 BP 135 / 66; Pulse 106; Resp 16; Temp 98.4(TE); Pulse Ox 97% on BiPAP; hj 05:49 Body Mass Index 14.17 (36.29 kg, 160.02 cm) aa1 MDM: 05:50 Patient medically screened. [facility] 06:02 Data reviewed: vital signs, nurses notes, lab test result(s), EKG, radiologic studies, teena plain films. 03/20 05:54 Order name: Basic Metabolic Panel; Complete Time: 07:49 [facility] 03/20 05:54 Order name: CBC with Diff [facility] 03/20 05:54 Order name: LFT's; Complete Time: 07:49 [facility] 03/20 05:54 Order name: Magnesium; Complete Time: 07:49 [facility] 03/20 05:54 Order name: NT PRO-BNP; Complete Time: 07:49 [facility] 03/20 05:54 Order name: PT-INR; Complete Time: 06:48 [facility] 03/20 05:54 Order name: Troponin (emerg Dept Use Only); Complete Time: 07:49 [facility] 03/20 05:54 Order name: Lipase; Complete Time: 07:49 [facility] 03/20 05:54 Order name: Blood Culture Adult (2) [facility] 03/20 05:54 Order name: Lactate; Complete Time: 07:28 [facility] 03/20 05:54 Order name: Procalcitonin; Complete Time: 07:12 [facility] 03/20 05:54 Order name: Urine Culture [facility] 03/20 06:53 Order name: Urine Dipstick--Ancillary (enter results) 03/20 06:54 Order name: Manual Differential [facility] 03/20 05:54 Order name: XRAY Chest (1 view) [facility] 03/20 05:54 Order name: BIPAP [facility] 03/20 07:54 Order name: Chest Abd Pelvis Wo Con [facility] 03/20 11:38 Order name: Lactate Sepsis 2 HR Follow-up [facility] 03/20 12:55 Order name: Blood Culture [facility] 03/20 13:30 Order name: ABG Arterial Blood Gas [facility] 03/20 05:54 Order name: EKG; Complete Time: 05:55 [facility] 03/20 05:54 Order name: Cardiac monitoring; Complete Time: 06:17 [facility] 03/20 05:54 Order name: EKG - Nurse/Tech; Complete Time: 06:17 [facility] 03/20 05:54 Order name: IV Saline Lock; Complete Time: 06:17 [facility] 03/20 05:54 Order name: Labs collected and sent; Complete Time: 06:18 [facility] 03/20 05:54 Order name: O2 Per Protocol; Complete Time: 06:17 [facility] 03/20 05:54 Order name: O2 Sat Monitoring; Complete Time: 06:17 [facility] 03/20 05:54 Order name: Urine Dipstick-Ancillary (obtain specimen); Complete Time: 06:51 [facility] 03/20 05:54 Order name: Pizano; Complete Time: 06:50 [facility] 03/20 06:49 Order name: EKG; Complete Time: 06:49 [facility] 03/20 06:49 Order name: EKG - Nurse/Tech; Complete Time: 07:05 [facility] 03/20 07:53 Order name: CONS Physician Consult EDMS 03/20 07:53 Order name: Heart Healthy EDMS Administered Medications: 06:30 Drug: NS 0.9% 1000 ml Route: IV; Rate: 75 ml/hr; Site: left wrist; ak1 07:00 Follow up: IV Status: Infusion continued hj 06:30 Drug: SOLU-Medrol 2 mg/kg Route: IVP; Site: left wrist; ak1 06:54 Follow up: Response: No adverse reaction ak1 06:30 Drug: Xopenex 3.75 mg Route: Inhalation; ak1 06:30 Drug: AtroVENT Aerosol 0.5 mg Route: Inhalation; ak1 06:30 Drug: Lasix 40 mg Route: IVP; Site: left wrist; ak1 06:55 Follow up: Response: No adverse reaction ak1 06:55 Drug: Lopressor 5 mg Route: IVP; Site: left forearm; jd3 07:02 Drug: Lopressor 5 mg Route: IVP; Site: left forearm; jd3 07:07 Drug: Lopressor 5 mg Route: IVP; Site: left forearm; jd3 07:17 Follow up: Response: No adverse reaction hj 07:35 Drug: Zosyn 3.375 grams Route: IVPB; Infused Over: 60 mins; Site: left forearm; hj 08:08 Follow up: IV Status: Completed infusion hj 07:39 Drug: levofloxacin 500 mg Volume: 100 ml; Route: IVPB; Infused Over: 60 mins; Site: hj right forearm; 08:08 Follow up: IV Status: Completed infusion hj 07:56 Drug: Lovenox 30 mg Route: Sub-Q; Site: abdomen; hj 08:09 Follow up: Response: No adverse reaction hj 07:56 Drug: Pepcid 20 mg Route: IVP; Site: right forearm; hj 08:09 Follow up: Response: No adverse reaction Disposition: 03/20/19 06:30 Hospitalization ordered by Akanksha Delgado for Inpatient Admission. Preliminary diagnosis are Dyspnea, Hypoxemia, Pneumonia due to other specified bacteria, Tachycardia, unspecified, Essential (primary) hypertension. - Bed requested for Intensive Care Unit. - Status is Inpatient Admission. hj - Condition is Serious. - Problem is new. - Symptoms have improved. UTI on Admission? No Signatures: Dispatcher [employer] EDMS Tonia Porras, RN RN Fernanda Berman, RN RN aa1 Jose Currie MD MD cha Krenek, Amber RN RN ak1 Kevin Lamas, RN Caleb Albright RN RN jd3 Triny Crawley Corrections: (The following items were deleted from the chart) 06:58 06:30 Hospitalization Ordered by Akanksha Delgado MD for Inpatient Admission. Preliminary [facility] diagnosis is Dyspnea; Hypoxemia; Pneumonia due to other specified bacteria. Bed requested for Telemetry/MedSurg (Inpatient). Status is Inpatient Admission. Condition is Serious. Problem is new. Symptoms have improved. UTI on Admission? No. teena 06:58 06:58 03/20/2019 06:30 Hospitalization Ordered by Akanksha Delgado MD for Inpatient teena Admission. Preliminary diagnosis is Dyspnea; Hypoxemia; Pneumonia due to other specified bacteria. Bed requested for Intensive Care Unit. Status is Inpatient Admission. Condition is Serious. Problem is new. Symptoms have improved. UTI on Admission? No. teena 07:33 06:58 03/20/2019 06:30 Hospitalization Ordered by Akanksha Delgado MD for Inpatient eb Admission. Preliminary diagnosis is Dyspnea; Hypoxemia; Pneumonia due to other specified bacteria; Tachycardia, unspecified; Essential (primary) hypertension. Bed requested for Intensive Care Unit. Status is Inpatient Admission. Condition is Serious. Problem is new. Symptoms have improved. UTI on Admission? NoCary dickinson 07:46 07:33 03/20/2019 06:30 Hospitalization Ordered by Akanksha Delgado MD for Inpatient eb Admission. Preliminary diagnosis is Dyspnea; Hypoxemia; Pneumonia due to other specified bacteria; Tachycardia, unspecified; Essential (primary) hypertension. Bed requested for Intensive Care Unit. Status is Inpatient Admission. Condition is Serious. Problem is new. Symptoms have improved. UTI on Admission? No. eb 15:24 07:46 03/20/2019 06:30 Hospitalization Ordered by Akanksha Delgado MD for Inpatient dw Admission. Preliminary diagnosis is Dyspnea; Hypoxemia; Pneumonia due to other specified bacteria; Tachycardia, unspecified; Essential (primary) hypertension. Bed requested for [facility] ER HOLD. Status is Inpatient Admission. Condition is Serious. Problem is new. Symptoms have improved. UTI on Admission? No. eb 16:15 15:24 03/20/2019 06:30 Hospitalization Ordered by Akanksha Delgado MD for Inpatient hj Admission. Preliminary diagnosis is Dyspnea; Hypoxemia; Pneumonia due to other specified bacteria; Tachycardia, unspecified; Essential (primary) hypertension. Bed requested for Intensive Care Unit. Status is Inpatient Admission. Condition is Serious. Problem is new. Symptoms have improved. UTI on Admission? No. dw
--- NOTE | 2019-03-20 06:31 | ER ---
Nurse's Notes [facility] Name: Monica Barragan Age: 83 yrs Sex: Female : 1935 Arrival Date: 03/20/2019 Time: 05:49 Bed 6 Private MD: Diagnosis: Dyspnea;Hypoxemia;Pneumonia due to other specified bacteria;Tachycardia, unspecified;Essential (primary) hypertension Presentation: 03/20 05:49 Presenting complaint: EMS states: pt developed a cough yesterday and when she woke up aa1 early this morning she was gurgling and having significant SOB. Upon arrival to ED pt RR 44 and 98% on neb tx. Transition of care: patient was received from another setting of care ([facility]), [facility]. Onset of symptoms was March 20, 2019. Risk Assessment: Do you want to hurt yourself or someone else? Patient reports no desire to harm self or others. Initial Sepsis Screen: Does the patient meet any 2 criteria? RR > 20 per min. HR > 90 bpm. Yes Does the patient have a suspected source of infection? Yes: Productive cough/pneumonia If YES to both, name of provider notified: Jose Currie MD. Care prior to arrival: Medication(s) given: Albuterol Neb x 1, Atrovent Neb x 1. 05:49 Method Of Arrival: EMS: [facility] aa1 05:49 Acuity: KERWIN 2 aa1 06:58 Acuity: KERWIN 1 hj Triage Assessment: 06:08 Respiratory: Reports shortness of breath at rest on exertion cough that is productive, ak1 air hunger labored breathing Onset: The symptoms/episode began/occurred today, the patient has moderate shortness of breath. Historical: - Allergies: 06:07 No Known Allergies; aa1 - Home Meds: 06:07 alendronate 70 mg Oral tab 1 tab once wkly [Active]; allopurinol 100 mg Oral tab 2 tabs aa1 once daily [Active]; aspirin 81 mg Oral chew 1 tab once daily [Active]; Arginaid 4.5 gram-156 mg/9.2 gram oral pwpk [Active]; ascorbic acid (vitamin C) 500 mg tab daily [Active]; atorvastatin 10 mg Oral tab 1 tab once daily [Active]; carvedilol 3.125 mg Oral tab 1 tab 2 times per day [Active]; ergocalciferol (vitamin D2) 50,000 unit oral cap 1 cap once wkly [Active]; ferrous sulfate 325 mg (65 mg iron) Oral tab daily [Active]; furosemide 20 mg Oral tab 1 tab once daily [Active]; guaifenesin 100 mg/5 mL Oral liqd 10 mL every 4 hours [Active]; ipratropium-albuterol 0.5 mg-3 mg(2.5 mg base)/3 mL Inhl nebu 3 mL 4 times per day [Active]; levothyroxine 25 mcg tab 1 tab once daily [Active]; prednisone 10 mg Oral tab 1 tab [Active]; spironolactone 25 mg Oral tab 1 tab once daily [Active]; Trelegy Ellipta 100-62.5-25 mcg/inh 1 puff daily [Active]; zinc sulfate 220 mg Oral tab daily [Active]; - PMHx: 06:07 CHF; Hyperlipidemia; Hypertension; Hypothyroidism; Pneumonia; COPD; aa1 - PSHx: 06:07 R pnemonectomy; aa1 - Immunization history:: Adult Immunizations unknown. - Social history:: Smoking status: Patient/guardian denies using tobacco. - Family history:: not pertinent. - Ebola Screening: : No symptoms or risks identified at this time. Screenin:09 Abuse screen: Denies threats or abuse. Denies injuries from another. Nutritional ak1 screening: No deficits noted. Tuberculosis screening: No symptoms or risk factors identified. Fall Risk None identified. Assessment: 06:07 General: Appears distressed, uncomfortable, slender, Behavior is calm, cooperative. ak1 Pain: Denies pain. Respiratory: Airway is patent Respiratory effort is labored, gasping, with retractions, Breath sounds with crackles bilaterally. 06:09 Cardiovascular: Rhythm is sinus tachycardia. ak1 07:00 General: Appears distressed, uncomfortable, slender, Behavior is calm, cooperative, hj appropriate for age. Pain: Denies pain. Neuro: Level of Consciousness is awake, alert, obeys commands, Oriented to person, place, time, situation, Appropriate for age. Cardiovascular: Capillary refill < 3 seconds Patient's skin is warm and dry. Rhythm is sinus tachycardia. Respiratory: Airway is patent Respiratory effort is labored, Respiratory pattern is regular, symmetrical, on BIPAP. GI: No signs and/or symptoms were reported involving the gastrointestinal system. : Pizano in place to gravity drainage. EENT: No signs and/or symptoms were reported regarding the EENT system. Derm: No signs and/or symptoms reported regarding the dermatologic system. Musculoskeletal: No signs and/or symptoms reported regarding the musculoskeletal system. 07:05 Reassessment: Patient and/or family updated on plan of care and expected duration. Pain hj level reassessed. hospitalist in room;. 09:17 Reassessment: pt on ER hold, documentation in [facility]. hj Vital Signs: 05:49 BP 173 / 93; Pulse 150; Resp 44; Temp 98.3; Pulse Ox 98% on Nebulizer Mask; Weight aa1 36.29 kg; Height 5 ft. 3 in. (160.02 cm); Pain 0/10; 06:55 BP 143 / 85; Pulse 147; Resp 38; Pulse Ox 98% on BiPAP; ak1 07:03 BP 140 / 80; Pulse 114; Pulse Ox 100% on BiPAP; ak1 07:48 BP 135 / 66; Pulse 106; Resp 16; Temp 98.4(TE); Pulse Ox 97% on BiPAP; hj 05:49 Body Mass Index 14.17 (36.29 kg, 160.02 cm) aa1 ED Course: 05:49 Patient arrived in ED. aa1 05:49 Arm band placed on right wrist. aa1 05:50 Jose Currie MD is Attending Physician. [facility] 05:53 Triage completed. aa1 06:07 BIPAP Sent. ak1 06:29 Akanksha Delgado MD is Hospitalizing Provider. teena 06:52 Initial lab(s) drawn, by asphalt plant laborer, sent to lab. First set of blood cultures drawn by [facility] lab staff. Urine collected: Pizano catheter specimen, EKG done, X-ray(s) taken. Initial Neb Treatment Given as ordered Patient tolerated procedure well without adverse effect. Pizano cath inserted, using sterile technique, 16 Fr., by mo, balloon inflated, to gravity drainage, urine specimen collected. Inserted saline lock: 22 gauge in left wrist, using aseptic technique. ,using aseptic technique. placed by Caleb Villalobos RN. Inserted saline lock: 22 gauge in right wrist, using aseptic technique. 06:53 Patient has correct armband on for positive identification. Placed in gown. Bed in low ak1 position. Call light in reach. Side rails up X2. Adult w/ patient. fun house operator on. Pulse ox on. NIBP on. Warm blanket given. Head of bed elevated. 06:57 Kevin Lamas, RN is Primary Nurse. hj 06:57 XRAY Chest (1 view) In Process Unspecified. EDMS 16:13 No provider procedures requiring assistance completed. Patient admitted, IV remains in hj place. intact. Administered Medications: 06:30 Drug: NS 0.9% 1000 ml Route: IV; Rate: 75 ml/hr; Site: left wrist; ak1 07:00 Follow up: IV Status: Infusion continued hj 06:30 Drug: SOLU-Medrol 2 mg/kg Route: IVP; Site: left wrist; ak1 06:54 Follow up: Response: No adverse reaction ak1 06:30 Drug: Xopenex 3.75 mg Route: Inhalation; ak1 06:30 Drug: AtroVENT Aerosol 0.5 mg Route: Inhalation; ak1 06:30 Drug: Lasix 40 mg Route: IVP; Site: left wrist; ak1 06:55 Follow up: Response: No adverse reaction ak1 06:55 Drug: Lopressor 5 mg Route: IVP; Site: left forearm; jd3 07:02 Drug: Lopressor 5 mg Route: IVP; Site: left forearm; jd3 07:07 Drug: Lopressor 5 mg Route: IVP; Site: left forearm; jd3 07:17 Follow up: Response: No adverse reaction hj 07:35 Drug: Zosyn 3.375 grams Route: IVPB; Infused Over: 60 mins; Site: left forearm; hj 08:08 Follow up: IV Status: Completed infusion hj 07:39 Drug: levofloxacin 500 mg Volume: 100 ml; Route: IVPB; Infused Over: 60 mins; Site: hj right forearm; 08:08 Follow up: IV Status: Completed infusion hj 07:56 Drug: Lovenox 30 mg Route: Sub-Q; Site: abdomen; hj 08:09 Follow up: Response: No adverse reaction hj 07:56 Drug: Pepcid 20 mg Route: IVP; Site: right forearm; hj 08:09 Follow up: Response: No adverse reaction Outcome: 06:30 Decision to Hospitalize by Provider. teena 16:14 Admitted to ICU accompanied by nurse, accompanied by tech, family with patient, via hj stretcher, room 6, with oxygen, on monitor, with chart, Report called to GLADYS Fuentes 16:14 Condition: stable 16:14 Instructed on the need for admit, Demonstrated understanding of instructions. 16:15 Patient left the ED. Signatures: Dispatcher [employer] EDMS Fernanda Berman RN RN aa1 Jose Currie MD MD cha Krenek, Amber, RN RN ak1 Kevin Lamas RN RN hj Davies, Jonathon, RN RN jd3
[2019-03-20] MEDS ORDERED: IPRATROPIUM BROM 0.5MG/2.5ML ONE ×2 (06:32→14:14)
[2019-03-20] MEDS ORDERED: LEVALBUTEROL 1.25 MG/3 ML NEB ONE (06:32)
[2019-03-20] MEDS ORDERED: FUROSEMIDE 40 MG/4 ML VIAL ONE (06:33)
[2019-03-20] MEDS ORDERED: METHYLPREDNISOLONE 40 MG INJ ONE ×2 (06:33→11:48)
[2019-03-20] MEDS ORDERED: NA CHLORIDE 0.9% 1,000 ML ONE (06:34)
[2019-03-20 06:43] LABS: Protime INR 1.17
[2019-03-20 06:46] LABS: Absolute Monocytes 0.8 K/uL (0.1-1.3); Absolute Neutrophil 24.2 K/uL (1.8-8.0); Basophils % 0.4 % (0-1.3); Eosinophils % 0.1 % (0-4.4); Hematocrit 35.1 % (36.0-45.0); Lymphocytes % 3.9 % (15.3-44.8); MPV 9.5 fL (7.6-11.3); Monocytes % 3.2 % (3.3-12.3); RBC Red Blood Cell Count 3.41 M/uL (3.86-4.86)
[2019-03-20] MEDS ORDERED: METOPROLOL TARTRATE 5 MG/5 ML INJ IV ONE (07:07)
[2019-03-20 07:13] LABS: Albumin 2.3 g/dL (3.4-5.0); Bilirubin Direct 0.2 mg/dL (0-0.2); Bilirubin Total 0.5 mg/dL (0.2-1.0); Magnesium 1.9 mg/dL (1.8-2.4); Potassium 4.2 mmol/L (3.5-5.1); Protein, Total 5.5 g/dL (6.4-8.2); Troponin (Emerg Dept Use Only) 0.14 ng/mL (0.0-0.045)
[2019-03-20] MEDS ORDERED: PIPER/TAZO/NS 3.375gm 3.375 GM/100 ML BAG ONE ×3 (07:31→22:47)
[2019-03-20] MEDS ORDERED: Levofloxacin500mg IV 500 MG/100 ML BAG IV ONE (07:31)
--- OUTSIDE RECORDS SUMMARY | 2019-03-20 07:40 | XMS REPORT ---
[...] Status Dosage System Date Date Spironolactone ND 22436791075 25 MG Orally Active 1 tablet Once a day with food ProAir HFA ND 16918213948 108 (90 Base) Active 2 puffs as MCG/ACT needed Inhalation every 6 hrs Metoprolol ND 96019735966 25 MG Orally Active 1/2 tablet Tartrate Twice a day with food Albuterol Sulfate ND 25007337981 (2.5 MG/3ML) Active 3 ml as 0.083% needed Inhalation Three times a day Spiriva ND 88969235247 18 MCG April Active 1 capsule HandiHaler Inhalation Once 07, a day 2018 Travatan Z [facility] 43614165486 0.004 % Active 1 drop Ophthalmic Once into a day affected eye in the evening Synthroid [facility] 67400061349 50 MCG Orally Active 1 tablet Once a day on an empty stomach in the morning Rosuvastatin [facility] 59898114228 5 Active TAKE 1 Calcium TABLET BY MOUTH DAILY Claritin [facility] 19163329109 10 MG Orally Active 1 tablet Once a day Amlodipine [facility] 11369399933 10 MG Active TAKE 1 Besylate TABLET BY MOUTH EVERY DAY Lasix [facility] 59065019725 20 MG Orally Active 1 tablet Once a day Allopurinol [facility] 36448147138 100 MG Orally Active 1 tablet Once a day Fosamax [facility] 50830042432 70 MG Orally Oct 31, Active 1 tablet 2017 Results No Known Results Summary Purpose eClinicalWorks Submission
[2019-03-20] MEDS ORDERED: ACETAMINOPHEN 500 MG TAB PO PRN (07:41)
--- OUTSIDE RECORDS SUMMARY | 2019-03-20 07:41 | XMS REPORT ---
[...] Start End Date Status Dosage Date Benzonatate [facility] 02533973089 200 MG Orally Nov 05, Active 1 capsule Three times a 2017 day Results No Known Results Summary Purpose eClinicalWorks Submission
--- OUTSIDE RECORDS SUMMARY | 2019-03-20 07:41 | XMS REPORT ---
:1935 [facility] Address [address] [place] [address] [address] [place] [address] Care Team Providers Name Role Phone Unavailable Unavailable Unavailable Problems This patient has no known problems. Allergies, Adverse Reactions, Alerts This patient has no known allergies or adverse reactions. Medications This patient has no known medications.
--- OUTSIDE RECORDS SUMMARY | 2019-03-20 07:41 | XMS REPORT ---
[...] End Status Dosage System Date Date Synthroid [facility] 45871304176 50 MCG Orally Active 1 tablet Once a day on an empty stomach in the morning Metoprolol ND 25853775402 25 MG Orally Active 1/2 tablet Tartrate Twice a day with food Allopurinol ND 58075880923 100 MG Orally Active 1 tablet Once a day Spironolactone [facility] 57529119676 25 MG Orally Active 1 tablet Once a day with food Lasix [facility] 73619023962 20 MG Orally Active 1 tablet Once a day Rosuvastatin [facility] 53668760606 5 Active TAKE 1 Calcium TABLET BY MOUTH DAILY Claritin [facility] 36061783610 10 MG Orally Active 1 tablet Once a day ProAir HFA [facility] 83522924079 108 (90 Base) Active 2 puffs as MCG/ACT needed Inhalation every 6 hrs Albuterol Sulfate [facility] 12573998887 (2.5 MG/3ML) Active 3 ml as 0.083% needed Inhalation Three times a day Travatan Z [facility] 61117553775 0.004 % Active 1 drop Ophthalmic Once into a day affected eye in the evening Spiriva [facility] 59914126425 18 MCG Oct 08, Active 1 capsule HandiHaler Inhalation Once 2019 a day Amlodipine [facility] 98101483059 10 MG Active TAKE 1 Besylate TABLET BY MOUTH EVERY DAY Spiriva [facility] 08790937080 18 MCG Active 1 capsule HandiHaler Inhalation Once a day Fosamax [facility] 93085656702 70 MG Orally April 11, Active 1 tablet once a week 2018 Results No Known Results Summary Purpose eClinicalWorks Submission
--- OUTSIDE RECORDS SUMMARY | 2019-03-20 07:41 | XMS REPORT ---
[...] End Status Dosage System Date Date Claritin [facility] 20164512018 10 MG Orally Active 1 tablet Once a day ProAir HFA [facility] 92826099834 108 (90 Base) Active 2 puffs as MCG/ACT needed Inhalation every 6 hrs Allopurinol ND 78984803332 100 MG Orally Active 1 tablet Once a day Albuterol Sulfate [facility] 39534206759 (2.5 MG/3ML) Active 3 ml as 0.083% needed Inhalation Three times a day Rosuvastatin [facility] 08772141532 5 Active TAKE 1 Calcium TABLET BY MOUTH DAILY Amlodipine [facility] 34937076347 10 MG Active TAKE 1 Besylate TABLET BY MOUTH EVERY DAY Travatan Z [facility] 03718919006 0.004 % Active 1 drop Ophthalmic Once into a day affected eye in the evening Fosamax [facility] 66132677050 70 MG Orally Active 1 tablet Synthroid [facility] 31342365672 50 MCG Orally Active 1 tablet Once a day on an empty stomach in the morning Spiriva [facility] 79394990359 18 MCG Active 1 capsule HandiHaler Inhalation Once a day Metoprolol [facility] 07708715432 25 MG Orally Active 1/2 tablet Tartrate Twice a day with food Spironolactone [facility] 64357242671 25 MG Orally Active 1 tablet Once a day with food Lasix [facility] 05845433661 20 MG Orally Active 1 tablet Once a day Results No Known Results Summary Purpose eClinicalWorks Submission
--- NOTE | 2019-03-20 07:54 | P.HP ---
Certification for Inpatient Patient admitted to: Inpatient With expected LOS: >2 Midnights Patient will require the following post-hospital care: None Practitioner: I am a practitioner with admitting privileges, knowledge of patient current condition, hospital course, and medical plan of care. Services: Services provided to patient in accordance with Admission requirements found in Title 42 Section 412.3 of the Code of Federal Regulations Patient History Date of Service: 03/20/19 Reason for admission: Respiratory distress History of Present Illness: Patient is an 83-year-old female came to the hospital with difficulty breathing. Patient had a cough for the last couple of days. She denies fever. Her respiratory status slowly worsened in her blood pressure became out of control. She is at the halfway and they sent her into the emergency room for further evaluation. In the emergency room she was found have a leukocytosis and a recurrence of her left lower lobe pneumonia. She has had 2 admissions this year for left lower lobe pneumonia. She has a history of a pneumonectomy of the right lung. She has also had a significant amount weight loss over the last year. In the ER, her workup revealed an elevated lactic acid level as well as procalcitonin level was indeterminate. She will be admitted to the hospital for further evaluation. Will get pulmonary consultation as well. Allergies milk Adverse Reaction (Verified 02/18/19 17:35) Nausea/Vomiting Home Medications: Alendronate Sodium 70 mg PO EVERY 7TH DAY 12/08/18 Allopurinol 200 mg PO DAILY 12/08/18 Aspirin Chewable [Aspirin Chewable*] 81 mg PO DAILY 12/08/18 Atorvastatin Calcium 10 mg PO BEDTIME 12/08/18 Ferrous Sulfate [Ferrous Sulfate*] 325 mg PO DAILY 12/08/18 Furosemide [Lasix*] 20 mg PO DAILY 12/08/18 Guaifenesin [Cough Syrup] 10 ml PO Q4HP PRN 12/08/18 Ipratropium/Albuterol Sulfate [Iprat-Albut 0.5-3(2.5) mg/3 ml] 1 dose IH Q6H PRN 12/08/18 Levothyroxine Sodium 25 mcg PO DAILY 12/08/18 Tiotropium [place] [Spiriva] 18 mcg IH DAILY 12/08/18 predniSONE [Prednisone*] 10 mg PO DAILY #30 tab 12/10/18 Carvedilol [Coreg*] 3.125 mg PO BID #60 tab 12/11/18 Arginine/Ascorbate Sod/Joanne AC [Arginaid Powder] 1 packet PO DAILY 02/18/19 Ascorbic Acid [Vitamin C] 500 mg PO DAILY 02/18/19 Docusate Sodium 100 mg PO BEDTIME 02/18/19 Ergocalciferol (Vitamin D2) [Vitamin D2] 1 cap PO SEECOM 02/18/19 Mag Hydroxide 8% [Milk Of Magnesia*] 30 ml PO BEDTIME 02/18/19 Zinc Sulfate [Zinc Sulfate*] 220 mg PO DAILY 02/18/19 Doxycycline Hyclate 100 mg PO BID #20 tablet 02/22/19 Ensure Enlive 237 ml PO BID can 02/22/19 Ferrous Sulfate [Ferrous Sulfate*] 325 mg PO DAILY #30 tab 02/22/19 Joe [Joe*] 1 pkt PO BID powd.pack 02/22/19 Meropenem [Merrem 500 MG/100 ML NS IVPB] 500 mg IV Q12H #1 bag 02/22/19 - Past Medical/Surgical History Diabetic: No -: chronic CHF -: PNA -: Hyperlipidemia -: hypothyroidism -: Pneumonia -: CKD III -: Gout -: Lung CA -: Pneumonectomy R -: Hysterectomy - Family History Sister Medical History: Hypertension, Diabetes - Social History Alcohol use: No CD- Drugs: No Caffeine use: No Review of Systems 10-point ROS is otherwise unremarkable Physical Examination - Vital Signs Temperature: 101 F Blood Pressure: 170/90 Pulse: 150 Respirations: 44 Pulse Ox (%): 80 - Physical Exam General: Moderate distress HEENT: Atraumatic, Normocephalic, PERRLA, Mucous membr. moist/pink Neck: Supple, 2+ carotid pulse no bruit, JVD distended Respiratory: Diminished (Right lung), Crackles/rales, Expiratory wheezes Cardiovascular: Regular rate/rhythm, Normal S1 S2, Systolic murmur Gastrointestinal: Soft and benign, Non-distended, No tenderness Musculoskeletal: No clubbing, Swelling Integumentary: No rashes Neurological: Normal gait, Sensation intact, Cranial nerves 3-12 intact, Abnormal speech, Abnormal strength - Studies Laboratory Data (last 24 hrs) 03/20/19 06:35: WBC 26.2 H* D, Hgb 12.1 D, Hct 35.1 L D, Plt Count 133 L D 03/20/19 06:35: Sodium 145, Potassium 4.2, BUN 46 H, Creatinine 0.99, Glucose 170 H, Magnesium 1.9, Total Bilirubin 0.5, AST 42 H, ALT 66, Alkaline Phosphatase 174 H, Lipase 86 03/20/19 06:11: PT 13.7 H, INR 1.17 Assessment & Plan - Problems (Diagnosis) (1) COPD exacerbation Current Visit: No Status: Acute (2) Congestive heart failure (CHF) Current Visit: No Status: Acute Qualifiers: (3) Left lower lobe pneumonia Current Visit: No Status: Acute (4) Acute respiratory distress Onset Date: 12/09/18 Current Visit: No Status: Resolved (5) Weight loss Current Visit: Yes Status: Acute (6) History of lung cancer Current Visit: Yes Status: Acute - Plan 1. Continue with IV antibiotics 2. Awaiting sputum and blood culture 3. Repeat chest x-ray 4. Will proceed with CT scan of the chest 5. Pulmonary consultation 6. Continue with nebs as needed 7. O2 per protocol 8. Continue with gentle hydration 9. Repeat labs including CBC and renal function in a.m. 10. GI and DVT prophylaxis Discharge Plan: Home Plan to discharge in: Greater than 2 days - Advance Directives Does patient have a Living Will: No Does patient have a Durable POA for Healthcare: No - Code Status/Comfort Care Code Status Assessed: Yes Code Status: Full Code Critical Care: Yes Time Spent Managing PTS Care (In Minutes): 50
[2019-03-20] MEDS: IPRATROPIUM BROM 0.5MG/2.5ML NEB SCH ×3 (07:59→20:00)
[2019-03-20 08:00] LABS: Blood Morphology Comment NOT SEEN (NOT SEEN); Platelet Estimate ADEQ
[2019-03-20] MEDS ORDERED: NA CHLORIDE 0.9% 1,000 ML IV SCH (08:00)
[2019-03-20] MEDS ORDERED: Levofloxacin500mg IV 500 MG/100 ML BAG IV SCH (08:00)
[2019-03-20] MEDS ORDERED: FAMOTIDINE 20 MG/2 ML VIAL IV ONE (08:12)
[2019-03-20] MEDS ORDERED: ENOXAPARIN 30 MG/0.3 ML SQ ONE (08:12)
[2019-03-20] MEDS ORDERED: VANCOMYCIN 1 GM in NA CHLORIDE 0.9% 250 ML IVPB SCH (09:00)
[2019-03-20] MEDS ORDERED: PNEUMOCOCCAL VACCINE 0.5 ML IMVAC ONE (09:00)
[2019-03-20 09:08] LABS: Urine Blood NEGATIVE (NEG); Urine Glucose NEGATIVE (NEG); Urine Protein 2+ (NEG); Urine pH 5.5 (5.0-7.0)
[2019-03-20] MEDS: ALBUTEROL 2.5 MG/3 ML NEB SOL NEB PRN (10:09)
[2019-03-20] MEDS ORDERED: ALBUTEROL 2.5 MG/3 ML NEB SOL ONE (10:20)
--- NOTE | 2019-03-20 10:52 | RAD REPORT ---
EXAM DESCRIPTION: RAD - Chest Single View - 03/20/2019 7:24 am CLINICAL HISTORY: COPD;Cough;Dyspnea Chest pain. COMPARISON: Chest Single View dated 02/20/2019; Chest Single View dated 02/18/2019; Chest Single View dated 02/18/2019 FINDINGS: Portable technique limits examination quality. Opacity is present at the left lung base, most compatible with pneumonia. Chronic complete opacificat ion of the right hemithorax again noted, unchanged. Cardiac size not accurately assessed. No displace d fractures.
[2019-03-20] MEDS ORDERED: D50W 25 GM/50 ML SYRINGE IV PRN (11:29)
[2019-03-20] MEDS ORDERED: GLUCAGON 1 MG/VIAL IM PRN (11:29)
[2019-03-20] MEDS: INSULIN -REGULAR HUMAN 50 UNIT/0.5 ML ML SQ SCH ×3 (11:30→21:00)
[2019-03-20] MEDS: METHYLPREDNISOLONE 40 MG INJ IV SCH ×2 (11:38→17:20)
[2019-03-20 13:06] LABS: Arterial Blood Carboxyhemoglob 1.3 % (0-1.5); Blood Gas Oxyhemoglobin 91.6 % (94-97); Blood O2 Saturation 93.6 % (92-98.5)
[2019-03-20] MEDS ORDERED: MORPHINE 2 MG/ML SYR IV ONE (13:52)
[2019-03-20] MEDS: PIPER/TAZO/NS 3.375gm 3.375 GM/100 ML BAG IVPB SCH ×2 (14:51→22:45)
[2019-03-20] MEDS: FUROSEMIDE 20 MG/ 2ML VIAL IV SCH (17:20)
[2019-03-20] MEDS: ONDANSETRON 4 MG/2 ML VIAL IV PRN (17:20)
[2019-03-21] MEDS: METHYLPREDNISOLONE 40 MG INJ IV SCH ×2 (00:03→05:14)
[2019-03-21] MEDS: FUROSEMIDE 20 MG/ 2ML VIAL IV SCH ×2 (00:03→10:02)
[2019-03-21] MEDS: IPRATROPIUM BROM 0.5MG/2.5ML NEB SCH ×4 (02:00→18:30)
[2019-03-21 05:11] LABS: Absolute Lymphocytes (CBC) 0.5 K/uL (0.7-4.9); Absolute Monocytes 0.4 K/uL (0.1-1.3); Absolute Neutrophil 20.9 K/uL (1.8-8.0); Basophils % 0.1 % (0-1.3); Hematocrit 27.3 % (36.0-45.0); Lymphocytes % 2.3 % (15.3-44.8); MPV 9.5 fL (7.6-11.3); Monocytes % 1.6 % (3.3-12.3); RBC Red Blood Cell Count 2.57 M/uL (3.86-4.86)
[2019-03-21 05:27] LABS: Albumin 2.1 g/dL (3.4-5.0); Bilirubin Total 0.5 mg/dL (0.2-1.0); Magnesium 1.9 mg/dL (1.8-2.4); Phosphorus 4.4 mg/dL (2.5-4.9); Potassium 5.3 mmol/L (3.5-5.1); Protein, Total 5.3 g/dL (6.4-8.2)
[2019-03-21 05:43] VITALS: BMI 13.8
[2019-03-21] MEDS: PIPER/TAZO/NS 3.375gm 3.375 GM/100 ML BAG IVPB SCH ×3 (07:00→22:57)
--- NOTE | 2019-03-21 07:09 | EKG ---
Test Date: 2019-03-20 Test Time: 07:01:55 First Coat Operator: [id number] MEASUREMENT RESULTS: Intervals: Rate: 114 CA: 128 QRSD: 70 QT: 320 QTc: 441 [place]: P: 86 CA: 128 QRS: 97 T: -75 INTERPRETIVE STATEMENTS: Sinus tachycardia Right atrial enlargement Rightward axis Pulmonary disease pattern ST & T wave abnormality, consider inferolateral ischemia Abnormal ECG Compared to ECG 03/20/2019 06:02:41 ST (T wave) deviation still present Electronically Signed On 03-21-19 07:08:19 CDT by Louie Abdi
--- NOTE | 2019-03-21 07:10 | EKG ---
Test Date: 2019-03-20 Test Time: 06:02:41 [employer]: YURI MEASUREMENT RESULTS: Intervals: Rate: 156 RI: 112 QRSD: 64 QT: 254 QTc: 409 [place]: P: 64 RI: 112 QRS: 60 T: 247 INTERPRETIVE STATEMENTS: Sinus tachycardia ST & T wave abnormality, non specific Abnormal ECG Compared to ECG 02/18/2019 11:46:34 no significant change from previous ECG Electronically Signed On 03-21-19 07:10:00 CDT by Louie Abdi
[2019-03-21] MEDS: INSULIN -REGULAR HUMAN 50 UNIT/0.5 ML ML SQ SCH ×4 (07:30→20:39)
[2019-03-21] MEDS ORDERED: Levofloxacin 250mg IV 250 MG/50 ML BAG IV SCH (09:00)
[2019-03-21] MEDS ORDERED: ENOXAPARIN 40 MG/0.4 ML SQ SCH (09:00)
--- NOTE | 2019-03-21 11:18 | P.CNS ---
Date of Consult: 03/21/19 Chief Complaint: Pneumonia History of Present Illness: Patient is 83 years of age I just saw her in my clinic last week she was doing much better according to the son became acutely worse started having more shortness of breath the chest congestion and appeared in the hospital and she appears to have an infiltrate in the left lower lobe elevated white count patient is currently in a detention was scheduled to be discharged this week feels weak the pneumonectomy on the right lung Allergies milk Adverse Reaction (Verified 03/20/19 08:24) Nausea/Vomiting Home Medications: Alendronate Sodium 70 mg PO EVERY 7TH DAY 12/08/18 Allopurinol 200 mg PO DAILY 12/08/18 Aspirin Chewable [Aspirin Chewable*] 81 mg PO DAILY 12/08/18 Atorvastatin Calcium 10 mg PO BEDTIME 12/08/18 Furosemide [Lasix*] 20 mg PO DAILY 12/08/18 Guaifenesin [Cough Syrup] 10 ml PO Q4HP PRN 12/08/18 Ipratropium/Albuterol Sulfate [Iprat-Albut 0.5-3(2.5) mg/3 ml] 1 dose IH Q6H PRN 12/08/18 Levothyroxine Sodium 25 mcg PO DAILY 12/08/18 predniSONE [Prednisone*] 10 mg PO DAILY #30 tab 12/10/18 Carvedilol [Coreg*] 3.125 mg PO BID #60 tab 12/11/18 Ascorbic Acid [Vitamin C] 500 mg PO DAILY 02/18/19 Ergocalciferol (Vitamin D2) [Vitamin D2] 1 cap PO SEECOM 02/18/19 Zinc Sulfate [Zinc Sulfate*] 220 mg PO DAILY 02/18/19 Ferrous Sulfate [Ferrous Sulfate*] 325 mg PO DAILY #30 tab 02/22/19 Fluticasone/Umeclidin/Vilanter [Trelegy Ellipta 100-62.5-25] 1 each IH DAILY Spironolactone [Aldactone] 25 mg PO DAILY 03/20/19 Zinc Sulfate [Zinc Sulfate*] 220 mg PO BID 03/20/19 - Past Medical/Surgical History Diabetic: No -: chronic CHF -: PNA -: Hyperlipidemia -: hypothyroidism -: Pneumonia -: CKD III -: Gout -: Lung CA -: Pneumonectomy R -: Hysterectomy - Family History Sister Medical History: Hypertension, Diabetes - Social History Alcohol use: No CD- Drugs: No Caffeine use: No Place of Residence: Custodial Review of Systems General: Weakness Respiratory: Cough, Shortness of Breath Physical Examination Temp Pulse Resp BP Pulse Ox 97.7 F 120 H 27 H 148/69 H 100 03/21/19 04:00 03/21/19 10:02 03/21/19 10:00 03/21/19 10:02 03/21/19 10:00 General: Alert, In no apparent distress, Oriented x3 HEENT: Atraumatic Neck: Supple Respiratory: Diminished (Diminished air entry in the left lung) Cardiovascular: No edema, Regular rate/rhythm, Normal S1 S2 Gastrointestinal: Normal bowel sounds, Soft and benign - Problems (1) Left lower lobe pneumonia Current Visit: No Status: Acute Plan: Patient is 83 years of age of presume COPD right-sided pneumonectomy for lung cancer admitted with respiratory to read distress left lower lobe infiltrate elevated white count appears to be dehydrated elevated sodium potassium worsening renal function global climate change analyst to D5 water appears to have heart failure with severe diastolic dysfunction patient is on low-dose Lasix continue with antibiotics sputum cultures are pending patient's vital signs are stable she can be transferred to the floor global climate change analyst to p.o. prednisone patient patient is tachycardic low-dose Toprol Dc Lasix change to D5 water patient's pro calcitonin is also elevated
[2019-03-21] MEDS: D5W 1,000 ML IV SCH (12:00)
[2019-03-21] MEDS: METOPROLOL XL 25 MG TAB PO SCH ×2 (12:23→20:35)
--- NOTE | 2019-03-21 15:44 | RAD REPORT ---
EXAM DESCRIPTION: CT - Chest Abd Pelvis Wo Con - 03/21/2019 3:28 pm CLINICAL HISTORY: Chest pain, shortness of breath, abdominal pain COMPARISON: CT chest February 19 TECHNIQUE: During dynamic enhancement using 100 milliliters nonionic IV contrast, axial 5 millimeter thick images of the chest, abdomen and pelvis were obtained. Biphasic technique was utilized through the abdomen. Oral contrast was administered. All CT scans are performed using dose optimization technique as appropriate and may include automated exposure control or mA/KV adjustment according to patient size. FINDINGS: Volume reduction and complete opacification of the right hemithorax. Pleural calcification s are present. These are changes of chronic right pneumonectomy stable from prior imaging. A few patchy areas of irregular airspace opacification are present in the left upper lobe. A moderate ly large area of airspace opacification with air bronchograms noted in the posterior left lower lobe near the base. Findings are more pronounced than seen on the February 19 examination. Findings have the appearance of infectious or aspiration pneumonia. Pattern is not typical for malignancy. This etiolog y would not be excluded given the persistence from a February 19 examination. No endobronchial lesion id entified. No pneumothorax or left-sided pleural effusion. No chest wall mass or abnormal axillary lymphadenopa thy seen. Mediastinal and hilar regions show no mass or lymphadenopathy. Heart size is stable from prior study. Small left-sided pericardial effusion is not significantly different. The liver, spleen and pancreas show no significant findings. Gallbladder is dilated without wall thi ckening or edema. No pericholecystic fluid. Several layering gallstones are again noted. No biliary t ree abnormality. Right kidney is again noted to be atrophic. No hydronephrosis of either kidney. No solid mass lesion identifiable. Left adrenal 2.5 centimeter mass has not changed. Urinary bladder is fully contracted a round a Pizano catheter. Uterus is absent. Ovaries are absent or atrophic. No dilated bowel loops or focal ball bowel wall thickening. No free air, free fluid or inflammatory stranding. No hernia, mass or bulky lymphadenopathy. No active GI process identifiable. Dense arterial tree calcifications are present. Vascular assessment is limited in the absence of cont rast. Prominent disc and bony degenerative change are present. No pathologic bone process seen. Soft tissue s posterior to the sacrum and posterior to each ischium mild prominent. No air in the soft tissues. D ecubitus ulcer changes are not excluded and can be correlated with exam findings. IMPRESSION: Moderate-sized area of airspace opacification in the left posterior gutter larger than s een on the February 19 examination. No cavitation or abscess. Minimal patchy airspace opacities in the l eft upper lobe. Left base findings are most likely a moderately large infectious or aspiration pneumonia. This could be residual or recurrent. Left base findings are not typical for the appearance of malignancy. Gallbladder is dilated and again noted to have small gallstones. No wall thickening, edema, biliary t ree abnormality or other finding of active gallbladder process. Prominent soft tissues posterior to the lower sacrum in each ischium. Decubitus ulceration is possibl e and needs correlation with physical exam findings.
[2019-03-21] MEDS: ONDANSETRON 4 MG/2 ML VIAL IV PRN (18:27)
[2019-03-21] MEDS: ALBUTEROL 2.5 MG/3 ML NEB SOL NEB PRN (18:30)
--- NOTE | 2019-03-21 18:36 | P.PN ---
Subjective Date of Service: 03/21/19 Chief Complaint: Pneumonia Subjective: Improving Patient seen and examined at bedside. No family at bedside. Chart reviewed and case discussed with nursing staff. Patient reports feeling better, improved breathing. No acute events noted overnight Off BiPAP this morning Review of Systems 10-point ROS is otherwise unremarkable Physical Examination - Vital Signs Temperature: 97.5 F Blood Pressure: 154/73 Pulse: 115 Respirations: 26 Pulse Ox (%): 98 - Physical Exam General: Alert, Oriented x3, Cachectic, Mild distress, Moderate distress, Other (Elderly) Respiratory: Diminished, Crackles/rales, Expiratory wheezes Cardiovascular: Regular rate/rhythm, Normal S1 S2 Gastrointestinal: Normal bowel sounds, No tenderness - Studies Microbiology Data (last 24 hrs): 03/20/19 07:36 Blood - Blood Anaerobic Blood Culture - Final 03/20/19 06:35 Blood - Blood Anaerobic Blood Culture - Final Assessment And Plan - Current Problems (Diagnosis) (1) Acute respiratory distress Onset Date: 12/09/18 Current Visit: No Status: Acute Plan: Transfer to the floor from the ICU Continue Breathing treatments and antibiotics. Continue steroids, low dose. Continue Bi-pap as needed. Now off of BiPAP, requiring oxygen via nasal cannula Pulmonology consult. Recommendations appreciated. 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 Qualifiers: Pressure injury location: buttock Pressure injury stage: stage 2 Laterality: left Qualified Code(s): L89.322 - Pressure ulcer of left buttock, stage 2 (5) Failure to thrive Current Visit: Yes Status: Acute Qualifiers: Failure to thrive age range: in adult Qualified Code(s): R62.7 - Adult failure to thrive - Plan DVT prophylaxis: Lovenox GI prophylaxis: Protonix Diet: Heart healthy Disposition: Transferred to the floor. Continue antibiotics and low-dose steroids. Overall, poor prognosis. Possible discussion regarding hospice. Patient continues to be a DNR, confirmed with patient as well as son. - Code Status/Comfort Care Code Status: Do Not Resuscitate
[2019-03-21] MEDS: ARFORMOTEROL TARTRATE 15 MCG/2 ML VIAL.NEB NEB SCH (20:00)
[2019-03-21] MEDS: ENSURE CLEAR 200 ML CAN PO SCH (20:52)
[2019-03-21] MEDS: JUVEN PACKET PO SCH (20:52)
[2019-03-21] MEDS ORDERED: predniSONE 20 MG TAB PO SCH (21:00)
[2019-03-21] MEDS ORDERED: VANCOMYCIN 750 MG in NA CHLORIDE 0.9% 150 ML IVPB SCH (21:00)
[2019-03-22] MEDS: IPRATROPIUM BROM 0.5MG/2.5ML NEB SCH ×4 (02:00→20:15)
[2019-03-22] MEDS: D5W 1,000 ML IV SCH ×3 (03:03→21:33)
[2019-03-22] MEDS: PIPER/TAZO/NS 3.375gm 3.375 GM/100 ML BAG IVPB SCH (06:27)
[2019-03-22] MEDS: INSULIN -REGULAR HUMAN 50 UNIT/0.5 ML ML SQ SCH ×4 (07:30→21:00)
[2019-03-22] MEDS: ARFORMOTEROL TARTRATE 15 MCG/2 ML VIAL.NEB NEB SCH ×2 (07:50→20:15)
[2019-03-22] MEDS: ENSURE CLEAR 200 ML CAN PO SCH ×2 (09:00→21:32)
[2019-03-22] MEDS: JUVEN PACKET PO SCH ×2 (09:00→21:32)
[2019-03-22] MEDS ORDERED: VANCOMYCIN 750 MG in NA CHLORIDE 0.9% 150 ML IVPB SCH (09:00)
[2019-03-22] MEDS: DOXYCYCLINE 100 MG CAP PO SCH ×2 (09:07→21:27)
[2019-03-22] MEDS: ENOXAPARIN 30 MG/0.3 ML SQ SCH (09:07)
[2019-03-22] MEDS: predniSONE 10 MG TAB PO SCH ×2 (09:07→21:27)
[2019-03-22 09:16] LABS: Potassium 4.4 mmol/L (3.5-5.1)
--- NOTE | 2019-03-22 11:55 | P.PN ---
Subjective Date of Service: 03/22/19 Chief Complaint: Pneumonia Subjective: Improving (c/o cough and congestion. trying to eat) Review of Systems General: Weakness Respiratory: Cough, Shortness of Breath Physical Examination - Vital Signs Temperature: 97.6 F Blood Pressure: 138/80 Pulse: 105 Respirations: 20 Pulse Ox (%): 100 - Physical Exam General: Alert, Oriented x3 Respiratory: Clear to auscultation bilaterally, Diminished Cardiovascular: No edema, Regular rate/rhythm - Studies Microbiology Data (last 24 hrs): 03/20/19 06:53 Catheterized Urine Weston Count - Final <10,000 CFU/ML. 03/20/19 06:53 Catheterized Urine - Final MIXED EMILY. 03/20/19 07:36 Blood - Blood Anaerobic Blood Culture - Final Assessment & Plan - Problems (Diagnosis) (1) Left lower lobe pneumonia Current Visit: Yes Status: Acute Plan: AW PNA. Doign well. D/C Vanc add Doxy CT RLL pneumonia. Reduce pred. D/C Pizano, BIPAP . PT. Mucomyst as per pt's request. WBC declining. Renal fuction no change. Reduce pred. Dietitian eval. Regualr diet Qualifiers: Pneumonia type: due to unspecified organism Qualified Code(s): J18.1 - Lobar pneumonia, unspecified organism
[2019-03-22] MEDS: PIPER/TAZO/NS 2.25gm 2.25 GM/50 ML BAG IV SCH ×2 (13:09→18:19)
[2019-03-22] MEDS: ACETYLCYST 6,000 MG/30 ML VIAL IH SCH ×2 (15:29→20:15)
[2019-03-22] MEDS ORDERED: ALBUTEROL 2.5 MG/3 ML NEB SOL NEB PRN (16:00)
[2019-03-22] MEDS ORDERED: FLUCONAZOLE 100 MG TAB PO ONE (16:00)
--- NOTE | 2019-03-22 20:15 | PN ---
Date of Progress Note: 03/22/2019 Patient seen and examined. Chart reviewed and case discussed with RN. Patient' s son at the bedside. Treatment plan explained all questions answered. Medications: List reviewed. Code Status: Do not resuscitate. Physical Examination: Vital Signs: Temperature 98, heart rate 104, blood pressure 144/65, respirations 20, O2 97% on 2 liters via nasal cannula. General: Awake, alert, oriented x3, in some mild distress. The patient currently on O2. CV: S1, S2. Peripheral pulses present. Regular rate and rhythm. Respiratory: Diminished breath sounds, some wheezing present. No use of accessory muscles. Gastrointestinal: Abdomen is soft, nontender, nondistended. Positive bowel sounds. No guarding or rigidity. Extremities: No clubbing, cyanosis, or edema. Neuro: Cranial nerves 2-12 intact grossly. No focal neurological deficit. Speech is normal. Laboratory Data: Sodium 140, potassium 4.4, chloride 105, CO2 24, BUN 62, creatinine 2, glucose 119, calcium 7.1. Blood cultures, no growth to date. Sputum culture shows absence of normal upper respiratory arnie, 3+ yeast. Assessment And Plan: An 83-year-old female with. 1. Acute respiratory failure. Improving. The patient was in the ICU initially. This is secondary to left lower lobe pneumonia. Continue breathing treatments and antibiotics. Appreciate Dr. Lombardo's input. The patient now off BiPAP currently on 4 liters via O2. 2. Left lower lobe pneumonia. The patient is currently on Zosyn and doxycycline. 3. History of pneumonectomy. 4. Sacral pressure ulcer. We will continue wound care for pressure ulcer on sacrum and coccyx stage 2, present on admission. 5. Failure to thrive. BMI is 15. The patient has been changed to regular diet. We will add Megace for appetite stimulation. 6. Hypernatremia corrected. 7. Hyperkalemia, corrected. 8. Acute kidney injury. Creatinine is trending up currently at 2. The patient is on IV fluids. We will continue to monitor. We will need to adjust IV antibiotic dose renally. 9. DVT prophylaxis with Lovenox plan we will continue to monitor. Follow up on cultures. Sputum culture growing out yeast. We will give 1 dose of Diflucan now. /RAGINI Voice ID: [id number] Report ID: [id number] MTDD
[2019-03-22] MEDS ORDERED: ATORVASTATIN 10 MG TAB PO SCH (21:00)
[2019-03-22] MEDS: METOPROLOL XL 25 MG TAB PO SCH (21:27)
[2019-03-23] MEDS: PIPER/TAZO/NS 2.25gm 2.25 GM/50 ML BAG IV SCH ×3 (01:08→12:18)
[2019-03-23] MEDS: IPRATROPIUM BROM 0.5MG/2.5ML NEB SCH ×2 (02:00→07:43)
[2019-03-23] MEDS ORDERED: LEVOTHYROXINE SOD 0.025 MG TAB PO SCH (06:00)
[2019-03-23 06:13] LABS: Absolute Lymphocytes (CBC) 0.3 K/uL (0.7-4.9)
[2019-03-23 06:28] LABS: Albumin 1.9 g/dL (3.4-5.0); Bilirubin Total 0.4 mg/dL (0.2-1.0); Potassium 3.6 mmol/L (3.5-5.1)
[2019-03-23 06:58] LABS: Absolute Monocytes 0.4 K/uL (0.1-1.3); Basophils % 0.2 % (0-1.3); Lymphocytes % 2.6 % (15.3-44.8); MPV 9.4 fL (7.6-11.3); Monocytes % 2.8 % (3.3-12.3); RBC Red Blood Cell Count 2.49 M/uL (3.86-4.86)
[2019-03-23] MEDS: ARFORMOTEROL TARTRATE 15 MCG/2 ML VIAL.NEB NEB SCH (07:43)
[2019-03-23] MEDS: ACETYLCYST 6,000 MG/30 ML VIAL IH SCH (07:43)
[2019-03-23 08:31] VITALS: TEMP 97.8
[2019-03-23 08:32] VITALS: BP 140/90
[2019-03-23] MEDS: ENOXAPARIN 30 MG/0.3 ML SQ SCH (08:59)
[2019-03-23] MEDS: DOXYCYCLINE 100 MG CAP PO SCH (08:59)
[2019-03-23] MEDS ORDERED: SPIRONOLACTONE 25 MG TABLET PO SCH (09:00)
[2019-03-23] MEDS ORDERED: ALLOPURINOL 100 MG TAB PO SCH (09:00)
[2019-03-23] MEDS ORDERED: FUROSEMIDE 20 MG TABLET PO SCH (09:00)
[2019-03-23] MEDS: ENSURE CLEAR 200 ML CAN PO SCH (09:00)
[2019-03-23] MEDS ORDERED: FERROUS SULFATE 325 MG TAB PO SCH (09:00)
[2019-03-23] MEDS ORDERED: ASPIRIN 81 MG CHEWABLE TABLET PO SCH (09:00)
[2019-03-23] MEDS: predniSONE 10 MG TAB PO SCH (09:00)
[2019-03-23] MEDS: JUVEN PACKET PO SCH (09:00)
[2019-03-23] MEDS ORDERED: MEDIHONEY 44 ML TOPICAL TUBE TOP SCH (09:00)
[2019-03-23] MEDS: INSULIN -REGULAR HUMAN 50 UNIT/0.5 ML ML SQ SCH ×2 (09:54→11:30)
[2019-03-23 10:02] VITALS: O2SAT 97
[2019-03-23 12:23] LABS: Potassium 3.7 mmol/L (3.5-5.1)
--- NOTE | 2019-03-23 12:41 | P.PN ---
Subjective Date of Service: 03/23/19 Chief Complaint: Pneumonia Subjective: Improving (Patient is improving still we complains of shortness of breath on exertion suffers from significant anxiety) Review of Systems General: Weakness Respiratory: Cough, Shortness of Breath Physical Examination - Vital Signs Temperature: 97.8 F Blood Pressure: 140/90 Pulse: 102 Respirations: 15 Pulse Ox (%): 96 - Physical Exam General: Alert, Oriented x3, Mild distress Neck: Supple Respiratory: Expiratory wheezes Cardiovascular: No edema, Regular rate/rhythm, Normal S1 S2 Assessment & Plan - Problems (Diagnosis) (1) Left lower lobe pneumonia Current Visit: Yes Status: Acute Plan: Patient is 83 years of age admitted with pneumonia currently stable change to p.o. levofloxacin 500 mg daily with doxycycline Dc IV fluids white count is declined significantly patient will not qualify for home O2 discharge on antibiotics for 2 weeks patient is compliant with her bronchodilators Qualifiers: Pneumonia type: due to unspecified organism Qualified Code(s): J18.1 - Lobar pneumonia, unspecified organism (2) Anxiety Current Visit: Yes Status: Acute Plan: Patient is very anxious which exacerbates her underlying obstructive airways disease I recommend a trial of SSRI prior to discharge
--- NOTE | 2019-03-24 01:49 | DS ---
Date of Discharge: 03/23/2019 [place]: Dr. Lombardo with Pulmonology. Admitting Diagnoses: 1.Acute COPD exacerbation. 2.Congestive heart failure. 3.Left lower lobe pneumonia. 4.Acute respiratory distress. 5.Weight loss. 6.History of lung cancer. Discharge Diagnoses: 1.Acute respiratory distress, improving. 2.Left lower lobe pneumonia. 3.History of pneumonectomy. 4.Sacral pressure ulcer, stage II. 5.Failure to thrive. BMI 15. 6.Adjustment disorder with depressed mood. 7.Hypernatremia, corrected. 8.Hyperkalemia, corrected. 9.Acute kidney injury, improving. 10.History of lung cancer, status post pneumonectomy. 11.Congestive heart failure, diastolic dysfunction, chronic. 12.Hypertensive heart disease. Hospital Course: The patient is an 83-year-old female from nursing facility, comes in with difficult y breathing. The patient was in respiratory distress, was found to have left lower lobe pneumonia an d the patient has had previous admissions this year for pneumonia. It should be noted that she has h ad a pneumonectomy of the right lung due to lung cancer. The patient has significant weight loss and has a BMI of 15. The patient was not septic. The patient was initially admitted to the ICU. She d id well, now is able to be weaned off BiPAP. She was transferred to the floor. She was started on b reathing treatments, antibiotics, and steroids. Dr. Lombardo with Pulmonology was consulted. The momo jamie's cultures remained negative to date. Her sputum cultures did grow out some yeast and was hector cat with Diflucan. Imaging studies showed opacification of the left posterior gutter. She was found to have incidental gallstones. The patient did well over the course of the hospital stay. She did have some electrolyte abnormalities including hyperkalemia and hypernatremia, which were corrected. She did have some acute kidney injury, which was treated with IV fluids. Her lactate level trended d own. Procalcitonin was minimally elevated above baseline. Her white count also trended down to 12.7 from 26,000. The patient also had sacral decubitus ulcers x2, which were treated with Medihoney and DuoDerm. The patient will need to continue wound care for her ulcers to prevent worsening. These w ere present on admission. The patient was then cleared for discharge from Pulmonology standpoint. S he was on supplemental oxygen at this time. Medications: As per medication reconciliation list. The patient's son requested home medication ref ills, which were provided as she will be transferring to [place] and will not have a PCP immediately . Followup: Follow up with primary care physician in 2-3 days. Follow up with storm window installer, Dr. Camelia whittington, in 2 weeks. Return to ER for worsening condition. Diet: Low-sodium, 1500 mL fluid restriction. Activity: Fall precautions. Physical Examination: General: Awake, alert, oriented, no acute distress, cachectic, frail, elderly female. CV: S1, S2. Peripheral pulses present. Respiratory: Diminished breath sounds. No wheezing. Gastrointestinal: Abdomen is soft, nontender, nondistended. Positive bowel sounds. Extremities: No clubbing, cyanosis, edema. Neuro: Nonfocal. Total time spent discharging the patient was 35 minutes. JAVIER Voice ID: [id number] Report ID: [id number]
== END 2019-03-23 15:00 | DRG 190 ==
LOC: ER 05:44 → ERHOLD 07:52 → 3RD-ICU 15:54 → 2ND 03-21 13:55
PROVIDERS: ADMIT Hospitalist; ATTEND Family Medicine
PROC: 5A09457 Assistance with Respiratory Ventilation, 24-96 Consecutive Hours, Continuous Positive Airway Pressure (ICD-10-PCS; principal; 2019-03-21)
DX: J44.0 Chronic obstructive pulmonary disease with (acute) lower respiratory infection (principal); J18.1 Lobar pneumonia, unspecified organism; J96.00 Acute respiratory failure, unspecified whether with hypoxia or hypercapnia; Z68.1 Body mass index [BMI] 19.9 or less, adult; I13.0 Hypertensive heart and chronic kidney disease with heart failure and stage 1 through stage 4 chronic kidney disease, or unspecified chronic kidney disease; N17.9 Acute kidney failure, unspecified; E87.0 Hyperosmolality and hypernatremia; I50.32 Chronic diastolic (congestive) heart failure; J44.1 Chronic obstructive pulmonary disease with (acute) exacerbation; N18.3 Chronic kidney disease, stage 3 (moderate); L89.322 Pressure ulcer of left buttock, stage 2; L89.152 Pressure ulcer of sacral region, stage 2; R62.7 Adult failure to thrive; E87.5 Hyperkalemia; F43.21 Adjustment disorder with depressed mood; R63.4 Abnormal weight loss; E78.5 Hyperlipidemia, unspecified; E03.9 Hypothyroidism, unspecified; M10.9 Gout, unspecified; Z79.82 Long term (current) use of aspirin; Z79.52 Long term (current) use of systemic steroids; Z85.118 Personal history of other malignant neoplasm of bronchus and lung; Z87.01 Personal history of pneumonia (recurrent); Z90.2 Acquired absence of lung [part of]
CPT/HCPCS: 36415; 51702; 71045; 71250; 74176; 80048; 80053; 80061; 80076; 80202; 81003; 82805; 82962; 83605; 83690; 83735; 83880; 84100; 84145; 84484; 85025; 85610; 87040; 87070; 87086; 87088; 87205; 93005; 94640; 94660; 94760; 96361; 96365; 96368; 96372; 96375; 99285; J1650; J1940; J2270; J2405; J2543; J2920; J7030; J7512; J7605